=== PATIENT | male | born 1955 | race Caucasian/White ===

== ENCOUNTER → 2024-08-30 08:02 | Outpatient (BNVA) | payer OTHER, SELFPAY | PROVIDERS: Visit Provider Nurse Practitioner Family | DX: Z01.818 Encounter for other preprocedural examination (principal); K21.9 Gastro-esophageal reflux disease without esophagitis; G47.30 Sleep apnea, unspecified | CPT/HCPCS: 99212 ==

== ENCOUNTER → 2024-08-30 08:02 | Outpatient (AMB) | payer OTHER, SELFPAY ==
--- OUTSIDE RECORDS SUMMARY | 2024-08-30 08:06 | XMS_ITS ---
Author Name [facility] [place] [facility] [place] Address [address] [place] [address] Care Team Providers Care Tip Puncher Name Role Phone GUDELIA MERIDA Primary Care Provider Unavailmatthew e Insurance Providers: All historical and current Section Date Range: From patient's date of to the date document was created. This section includes the names of all active insurance providers for the patient. Insurance Provider Type of Coverage Plan Name Start of Policy Coverage End of Policy Coverage Group Number Member ID Insurance Provider's Telephone Number Policy Xie's Name Patient's Relationship to Policy Xie OPTUM RX PRESCRIPT ION RX Apr 13, 2022 THPRX [id number] ROJELIO GOMEZ PATIENT [facility] Apr 13, 2017 [id number] [phone] ROJELIO GOMEZ PATIENT [facility] PLAN [facility] [place] REUBEN CHAN E Apr 13, 2017 [facility] [place] [id number] ROJELIO GOMEZ PATIENT Selected Encounter This section includes the information on record at [place] for the Encounter. Date/Time Encounter Type Encounter Description Reason Provider Source May 10, 2024 10:00 AM TELEHEALTH FACILITY FEE SLEEP MEDICINE ICD-10-CM G47.33 Obstructive sleep apnea (adult) (pediatric) CHALO MALLOY Encounter Template Text not used by [place] Assessments - Encounter Diagnoses This section includes the primary and secondary diagnoses documented for the Encounter. Date/Time Primary/Secondary Diagnosis Diagnosis Name Provider Source May 10, 2024 11:13 AM PRIMARY Obstructive sleep apnea (adult) (pediatric) CHALO MALLOY [place] [facility] [place] [facility] Plan of Treatment: Future Appointments (+ 6 months) and Future Tests (+/- 45 days) The Plan of Treatment section includes future care activities for the patient from all [place] treatmentfacilities. This section includes future appointments and future orders which are active, pending or scheduled. Future Appointments This section includes appointments that were scheduled to occur 6 months from the date of the Encounter, up to a maximum of 20 appointments. The data comes from all [place] treatment facilities. Appointment Date/Time Appointment Type Appointme nt Facility Name May 19, 2024 10:30 AM AMBULATORY - MEDICINE [place] [facility] [place] [facility] Jun 03, 2024 08:30 AM AMBULATORY - MEDICINE [place] [facility] [place] [facility] Jun 24, 2024 08:30 AM AMBULATORY - REHAB MEDICIN [facility] Jun 27, 2024 09:00 AM AMBULATORY - MEDICINE [place] [facility] [place] [facility] Jun 30, 2024 09:00 AM AMBULATORY - NONE [facility] Jun 30, 2024 11:00 AM AMBULATORY - MEDICINE [place] [facility] [place] [facility] Jul 04, 2024 09:00 [facility], [facility] 09:00 AM AM[facility]UL[facility] - NONE [facility] Jul 25, 2024 09:00 AM AMBULATORY - MEDICINE [place] [facility] [place] [facility] Jul 25, 2024 10:00 AM AMBULATORY - MEDICINE [place] [facility] [place] [facility] Jul 28, 2024 09:00 AM AMBULATORY - NONE [facility] Jul 29, 2024 08:00 AM AMBULATORY - REHAB MEDICIN [facility] Aug 02, 2024 08:30 AM AMBULATORY - MEDICINE [place] [facility] [place] [facility] Aug 02, 2024 08:31 AM AMBULATORY - MEDICINE [place] [facility] Aug 04, 2024 09:00 AM AMBULATORY - NONE [facility] Aug 04, 2024 02:00 PM AMBULATORY - MEDICINE [place] [facility] [place] [facility] Aug 08, 2024 09:00 AM AMBULATORY - REHAB MEDICIN E [facility] August 11, 2024 09:30 AM AMBULATORY - MEDICINE [facility] August 15, 2024 09:00 AM AMBULATORY - REHAB MEDICIN E [facility] August 18, 2024 09:00 AM AMBULATORY - NONE [facility] Lab Results: +/- 30 days of the encounter This section includes the Chemistry and Hematology Lab Results on record with [place] for the patient. Radiology Reports and Pathology Reports are provided separately, in subsequent sections. Lab Results This section contains the Chemistry/Hematology Results that were resulted 30 days before or 30 daysafter the date of the Encounter. Date/Time Source Result Type Result - Unit Interpretation Reference Range Specimen Type Comment May 10, 2024 11:57 AM [facility] LIVER FUNCTION SERUM Specimen Type: SERUM No comment entered. Ordering Provider: GUDELIA MERIDA Report Released Date/Time: May 10, 2024 11:50 AM Reporting Lab: [address] [address] Performing Lab: [address] [address] PROTEIN,TOTAL 7.7 g/dL 6.0-8.3 ALBUMIN 4.4 g/dL 3.5-5.0 ALKALINE PHOSPHATASE 54 U/L 40-150 AST 23 U/L 5-34 ALT 32 U/L BILIRUBIN, TOTAL 0.9 mg/dL 0.2-1.2 May 10, 2024 11:57 AM [facility] BASIC METABOLIC PANEL (non-fasting) SERUM Spe cimen Type: SERUM No comment entered. Ordering Provider: GUDELIA MERIDA Report Released Date/Time: May 10, 2024 11:50 AM Reporting Lab: [address] [address] Performing Lab: [address] [address] UREA NITROGEN 14 mg/dL 7-25 GLUCOSE 94 mg/dL 65-100 SODIUM 136 mmol/L 135-145 POTASSIUM 4.4 mmol/L 3.5-5.0 CHLORIDE 103 mmol/L 100-110 CO2 25 meq/L 20-30 CREATININE, Serum 1.18 mg/dL 0.50-1.40 eGFR(CKD-EPI 2020) 68 mL/min >60 May 10, 2024 11:57 AM [facility] CBC BLOOD Specimen Type: BLOOD No comment entered. Ordering Provider: GUDELIA MERIDA Report Released Date/Time: May 10, 2024 11:50 AM Reporting Lab: [facility] [address] [facility] [address] Performing Lab: [facility] [address] [facility] [address] WBC 6.13 10*3/uL 4.50-11.00 RBC 5.21 10*6/uL 4.23-5.66 HGB 15.7 g/dL 12.8-17 HCT 46.0 39.2-50.4 MCV 88.3 fL 82-99 MCHC 34.1 g/dL 30.8-35.1 PLT 199 10*3/uL 140-360 RDW-CV 12.7 12.0-16.0 MCH 30.1 pg 26.2-32.6 Vital Signs: All taken on the encounter date This section contains inpatient and outpatient Vital Signs collected on the date of the Encounter. Date/Time Temperature Pulse Blood Pressure Respiratory Rate SP02 Pain Height Weight Body Mass Index Source May 10, 2024 11:44 AM 55 152/86 [place] [facility] [place] [facility] May 10, 2024 11:41 AM 55 150/90 16 96 [place] [facility] [place] [facility] May 10, 2024 11:09 AM 191/72 [place] [facility] [facility] May 10, 2024 11:08 AM 60 189/95 17 94 200 30 [facility] [place] [facility] Social History: Smoking Status (Most current) and Tobacco Use (All prior to encounter date) This section includes the most current, and the historical, smoking and tobacco- related health factors from the [place] facility where the Encounter took place. Current Smoking Status This section includes the most current smoking, or tobacco-related health factor, from the [place] facility where the Encounter took place. Date/Time Current Smoking Status Comment Facil ity May 10, 2024 11:00 AM VA-TOBACCO NEVER U SED CIGARETTES [facility] Tobacco Use History This section includes a history of the smoking, or tobacco-related health factors, that were collected on or before the date of the Encounter. The data comes from the [place] facility where the Encounter took place. Date/Time Smoking Status/Tobacco Use Comment [place] May 10, 2024 11:00 AM VA-TOBACCO NEVER U SED OTHER TYPE [facility] Jun 06, 2023 12:22 PM VA-TOBACCO NEVER USED [facility] Radiology Reports: +/- 30 days of the encounter Radiology Reports For cases when an order for radiology services may have been completed prior to the date of the Encounter, the report list includes the Radiology Reports that were completed up to 30 days before dateof the Encounter. For cases when an order for radiology services may have been completed after the date of the Encounter, the report list also includes the Radiology Reports that were completed up to30 days after date of the Encounter. The data comes from all [place] treatment facilities. Date/Time Radiology Report Provider Source May 19, 2024 11:19 AM SPINE LUMBOSACRAL MIN 2 VIEWS: BLAYNE GOMEZ [id number] -[phone] M Exm Date: MAY 19, 2024@11:19 Req Phys: GUDELIA MERIDA Pat Loc: CWM/NO/PACT EIGHT (Req'g Loc) Im Loc: [facility] 1 Service: [place] [address] (Case 315 COMPLETE) SPINE LUMBOSACRAL MIN 2 VIEWS (RAD Detailed) CPT:98875 Reason for Study: low back pain Clinical History: prev saw physiatry- chronic back pain Report Status: Verified Date Reported: MAY 19, 2024 Date Verified: MAY 19, 2024 Pump Operator E-Sig:/ES/TRACIE HARVEY JR Report: Study: AP, lateral and magnified lateral views of the lumbar spine. Comparison: Lumbar spine radiographs from December 21, 2018. Findings: There are 5 lumbar vertebral bodies. There is interval worsening of intervertebral disc space narrowing, vertebral endplate sclerosis and anterior osteophytosis throughout the visualized thoracic and the entire lumbar spine consistent with degenerative disc disease. This is mild to moderate in degree and is most prominent at the L5-S1 level where there is grade 1 anterolisthesis of L5 on S1 again identified without clear pars interarticularis defect at this level. There is straightening of the normal lumbar spine lordosis, likely secondary to degenerative disc disease changes. The vertebral heights are normal. There is moderate lower lumbar spine facet joint hypertrophic change. The bony mineralization is normal. No acute bony fracture, dislocation or subluxation is identified. The visualized sacrum is normal and the visualized sacroiliac joints are normal for age. Impression: Multilevel degenerative changes to the lumbar spine, as described above. Primary Diagnostic Code: No immediate attention required Primary Interpreting Staff: TRACIE HARVEY JR, Radiologist (Pump Operator) /EATRACIE ARZOLA JR [facility] Encounter Notes: All associated encounter notes This section contains the clinical notes associated to the Encounter. Date/Time Encounter Note(s) Provider Source May 10, 2024 11:13 AM SLEEP MEDICINE NOT E: LOCAL TITLE: SLEEP DISORDER INITIAL CONSULT NOTE STANDARD TITLE: SLEEP MEDICINE NOTE DATE OF NOTE: MAY 10, 2024@11:13 ENTRY DATE: MAY 10, 2024@11:13:09 AUTHOR: CHALO MALLOY EXP COSIGNER: URGENCY: STATUS: COMPLETED SLEEP MEDICINE TELEMEDICINE CONSULT (CVT) This visit was conducted in CVT clinic. Reason for referral: struggling with compliance, does not feel tired, does not feel benefit and requests to discuss alternatives to CPAP. In interim he is trying F30-i FFM HPI: The patient is a 69 year old with a history of elevated BMI (31), chronic maxillary sinusitis, allergic rhinitis, asthma, GERD, tinnitus, and moderate GORDON on APAP who presents with the main sleep-related concern(s) of CPAP intolerance. He would like to consider alternative treatment options. He was diagnosed with moderate GORDON on PSG 07/17/22 (scanned in [place]) which showed AHI of 26/hr, mean Sp02 94% with jean Sp02 of 80%, Sp02 < 90% 37 minutes TST: 445 minutes, SE: 87%. He was subsequently set up on APAP 5-20 cmH20 10/19/2023. 90-day download shows last usage in Jan 2024. There were 37/90 days of usage, averaging 2.5hr with residual AHI of 3/hr, P95 of 10 cmH20. He was seen in CPAP clinic and recommended switching from the N30i to the F30i FFM. He reports that it feels psychological . He feels that he can not breathe with the mask on. 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 He was unable to tolerate either the nasal or full face interface. He reports symptoms of frequent nocturnal awakenings, nocturia, snoring. My snoring is still pretty bad, and asks him to sleep in a separate room. He denies gasping/choking awakenings and morning headaches. Lately he feels more tired than usual during the day, and may feel drowsy when sedentary during the day. He gets nasally congested and maxillary sinusitis. Uses Afrin spray regularly. Does not do saline rinses. He has exercise induced asthma, treated with inhaler. Other sleep symptoms: Reports previous symptoms of RLS, not currently. Denies sleepwalking, dream enactment Denies nightmares Endorses occasional difficulty falling asleep, wouldn't say it's a big issue. Current sleep-wake cycle: Bedtime: 10-11pm Sleep latency: no more than 30 min # of awakenings/how lon-3x/night to urinate, SL very quick Rise time: 7-7:30am normally without an alarm Upon awakening: refreshed Estimated nocturnal sleep: 7-8hr Bedpartner: Sleep position: side, stomach Napping: no Drowsy driving: no EPWORTH SLEEPINESS SCALE: TOTAL 11/03 Sitting and Reading 1 score Watching Television 1 score Sitting inactive in a public place 0 score Sitting as a passenger in a car 1 hour without a break 1 score Lying down to rest in the afternoon ___2 score Sitting and talking to someone 0 score Sitting quietly after lunch without alcohol 1 score In a car, stopped for a few minutes in traffic 0 score Pertinent Social Hx: Caffeine: 2-3 cups of tea ETOH: on weekends Smoking: no Occupation: retired Marital Status: Pertinent Family Hx: Denies known FH of sleep apnea PMH: Sleep apnea (disorder) Backache (finding) Gastroesophageal reflux disease (disorder) Elevated blood pressure reading without diagnosis of hypertension (situation) Cataract (disorder) Hearing loss (disorder) Chronic maxillary sinusitis (disorder) Mood disorder (disorder) Allergic rhinitis (disorder) Tinnitus (finding) MEDS: FLUTICASONE/SALMETEROL (WIXELA) INHL,ORAL, NON-VA (Patient/Family Reported) ALBUTEROL INHALER INHL,ORAL, NON-VA (Patient/Family Reported) OMEPRAZOLE CAP,EC, NON-VA (Patient/Family Reported) ALLERGIES: No Allergy Assessment PE: 08/10/23 Body Mass Index: 31* BP 190/77 (repeated), GEN: well appearing, in NAD HEENT: NC/AT, neck supple, sclera anicteric, teeth intact but enamel worn down, tongue with central fissuring, Mallampati 2 NEURO: awake, alert, no focal deficits PSYCH: normal mood and affect PRIOR SLEEP STUDIES: PSG of 07/17/22 reviewed (scanned in [employer]), study done in [facility] Impression: Moderate GORDON AHI: 25.6/hr, mean Sp02 94% with jean Sp02 of 80%,Sp02 < 90% 37.2 minutes TST: 444.5 minutes, SE: 86.56% PLMI: 12/hr BLAYNE GOMEZ 11/17/2023 - 02/14/2024 : 1955 Age: 69 years [employer] Compliance Report Compliance Payor [facility] Usage 11/17/2023 - 02/14/2024 Usage days 37/90 days (41%) >= 4 hours 7 days (8%) < 4 hours 30 days (33%) Usage hours 97 hours 50 minutes Average usage (total days) 1 hours 5 minutes Average usage (days used) 2 hours 39 minutes Median usage (days used) 2 hours 16 minutes Total used hours (value since last reset - 02/14/2024) 154 hours AirSense 11 AutoSet Serial number [id number] Mode AutoSet Min Pressure 5 cmH2O Max Pressure 20 cmH2O EPR Fulltime EPR level 3 Response Soft Therapy Pressure - cmH2O Median: 8.0 95th percentile: 9.9 Maximum: 10.4 Leaks - L/min Median: 1.7 95th percentile: 18.0 Maximum: 26.1 Events per hour AI: 2.1 HI: 1.0 AHI: 3.1 Apnea Index Central: 0.9 Obstructive: 1.1 Unknown: 0.0 RERA Index 0.4 Randolph-Caldera respiration (average duration per night) 0 minutes (0% * Impression: 69 year old with 1) Moderate GORDON, last confirmed on non-VA PSG 07/17/22 with AHI 26/hr, SpO2 jean 80%, T<90% 37 min. He was initiated on APAP 5-20 cmH20 but having difficulty acclimating due to mask claustrophobia and possibly pressure intolerance in the setting of chronic rhinosinusitis. We discussed better strategies to treat his congestion rather than his current strategy of using Afrin only. We discussed how PAP is the first line and most effective options, alternative options discussed include MAD and pharmacologic weight reduction. He is interested in Zepbound (tirzepatide) which he has researched. He is not interested in surgical option of Inspire. 2) Severe hypertension, with systolic in the 190s today and reportedly a history of hypertension that is diet-managed. Patient is currently asymptomatic. We did discuss the sequelae of assisted untreated HTN and he will seek further treatment guidance from his PCP. Plan: - start nasal saline rinse (e.g., Neilmed) at bedtime; may follow up with Flonase 1 spray in each nostril as needed. - resume CPAP use (vet wants to retry PAP) - will place referral to the move program to review pharmocologic weight loss options - may consider alternative treatments in the future including oral appliance therapy - advised to reach out to his PCP for BP management RTC in 4-5 months. /ronnie/ CHALO MALLOY MD ATTENDING Signed: 05/10/2024 11:13 CHALO MALLOY [facility] [place] [facility] May 10, 2024 10:12 AM TELEHEALTH NOTE: LOCAL TITLE: TELEHEALTH NOTE STANDARD TITLE: TELEHEALTH NOTE DATE OF NOTE: MAY 10, 2024@10:12 ENTRY DATE: MAY 10, 2024@10:12:28 AUTHOR: MASSIEL HAND EXP COSIGNER: URGENCY: STATUS: COMPLETED TELEHEALTH NOTE Has ADDENDA SLEEP MEDICINE TELEMEDICINE AFTER VISIT INSTRUCTIONS Appt date: Apr Provider: Dr. Chalo Malloy Continue CPAP (continuous positive airway pressure) therapy while sleeping and napping. Referral to MOVE clinic. Contact PCP to have B/P Check Appt medication refilled/ordered. Advised use of Saline nasal rinses. Weight reduction. Other: May consider alternative treatments in the future including oral appliance therapy. Discussed with patient the above, patient verbalize understanding. Next Scheduled Appointment date: August Important phone numbers Call Center Assistant(name):Massiel Hand Ex [phone] Malloy via My [employer] Vet secure messaging: [email or web address] (secure messaging) Dental: [phone], ext. [phone] HOMESLEEP DEPT (Home sleep Dept):[phone], ext. [phone] Respiratory Therapist: [phone], ext. [phone] /es/ MASSIEL HAND TELEHEALTH CLINICAL TAKER OFF HEMP FIBER Signed: 05/10/2024 11:03 05/10/2024 ADDENDUM STATUS: COMPLETED correction F/U appt scheduled for 08/02/2024 @ 0830. /ronnie/ MASSIEL HAND TELEHEALTH CLINICAL TAKER OFF HEMP FIBER Signed: 05/10/2024 11:12 MASSIEL HAND [facility]L [facility]
--- OUTSIDE RECORDS SUMMARY | 2024-08-30 08:06 | XMS_ITS | Encounter Summary ---
Author Name [facility] [place] Address [address] [place] [id number] Care Team Providers Care Home Health Caregiver Name Role Phone GUDELIA MERIDA Primary Care [...] PRESCRIPT ION RX Apr 13, 2022 THPRX [id number] [phone] ROJELIO GOMEZ PATIENT [facility] Apr 13, 2017 [id number] ROJELIO GOMEZ PATIENT [facility] REUBEN CHAN E Apr 13, 2017 [facility] [id number] ROJELIO GOMEZ PATIENT Selected Encounter This section includes the information on record at [place] for the Encounter. Date/Time Encounter Type Encounter Description Reason Pro vider Source August 29, 2024 10:45 AM Outpatient Encounter PRIMARY CARE/MEDICINE IHE Encounter Template Text not used by [place] Plan of Treatment: Future Appointments (+ 6 months) and Future Tests (+/- 45 days) The Plan of Treatment section includes future care activities for the [facility] [place] [facility] This section includes future appointments and future orders which are active, pending or scheduled. Future Appointments This section includes appointments that were scheduled to occur 6 months from the date of the Encounter, up to a maximum of 20 appointments. The data comes from all [place] treatment facilities. Appointment Date/Time Appointment Type Appointme nt Facility Name August 30, 2024 08:15 AM AMBULATORY - NONE [facility] September 06, 2024 02:00 PM AMBUL[facility]ORY - [facility]IC[facility] Jan 31, 2025 11:00 AM [facility] Jan 31, 2025 11:00 AM AMBULATORY - MEDICINE [facility] Feb 01, 2025 09:00 AM AMBULATORY - REHAB MEDICIN E [facility] Active, Pending, and Scheduled Orders This section includes a listing of several types of active, pending, and scheduled orders, including clinic medications orders, diagnostic test orders, procedure orders and consult orders; where the start date of the order is 45 days before the date of the Encounter or 45 days after the date of theEncounter. The data comes from all [place] treatment facilities. Test Date/Time Test Type Test Details Facility Name Jul 29, 2024 01:24 PM Consult Order COMMUNITY CARE-COLONOSCOPY DIAGNOSTIC Cons Industrial Controller's Choice [facility] Vital Signs: All taken on the encounter date This section contains inpatient and outpatient Vital Signs collected on the date of the Encounter. Date/Time Temperature Pulse Blood Pressure Respiratory Rate SP02 Pain Height Weight Body Mass Index Source August 29, 2024 10:43 AM 98.1 56 153/74 18 95 [employer] [facility] Social History: Smoking Status (Most current) and Tobacco Use (All prior to encounter date) This section includes the most current, and the historical, smoking and tobacco- related health factors from the [place] facility where the Encounter took place. Current Smoking Status This section includes the most current smoking, or tobacco-related health factor, from the [place] facility where the Encounter took place. Date/Time Current Smoking Status Radha benton May 10, 2024 11:00 AM NE-TOBACCO NEVER U SED CIGARETTES [facility] Tobacco Use History This section includes a history of the smoking, or tobacco-related health factors, that were collected on or before the date of the Encounter. The data comes from the [place] facility where the Encounter took place. Date/Time Smoking Status/Tobacco Use Comment F acility May 10, 2024 11:00 AM VA-TOBACCO NEVER U SED OTHER TYPE [facility] Jun 06, 2023 12:22 PM VA-TOBACCO NEVER USED [facility] Encounter Notes: All associated encounter notes This section contains the clinical notes associated to the Encounter. Date/Time Encounter Note(s) Provider Source August 29, 2024 11:05 AM PRIMARY CARE NURSI NG OUTPATIENT NOTE: LOCAL TITLE: NURSING/PRIMARY CARE/AMB-OPT.CARE NOTE STANDARD TITLE: PRIMARY CARE NURSING OUTPATIENT NOTE DATE OF NOTE: AUGUST 29, 2024@11:05 ENTRY DATE: AUGUST 29, 2024@11:05:24 AUTHOR: GAGANDEEP MONTALVO EXP COSIGNER: URGENCY: STATUS: COMPLETED Temperature: 98.1 F [36.7 C] (08/29/2024 10:43) Pulse: 56 (08/29/2024 10:43) Respiration: 18 (08/29/2024 10:43) Blood Pressure: 153/74 (08/29/2024 10:43) Height: 68 in [172.7 cm] (08/02/2024 08:37) Weight: 206 lb [93.44 kg] (08/18/2024 09:00) Pain: 0 (08/02/2024 09:21) Allergies: Patient has answered NKA F: Cough and night sweats. Vet concerned about Pneumonia. D: Vet endorses 5-7 day history of cough and night sweats. He denies any other symptoms. [place] has a hx of asthma and states he has been using his rescue inhaler 4x/day when normally he doesn't need to use it at all. reports he has been having night sweats, states the cough and breathing is more difficult at night. Has been using nyquil and dayquil for relief. A: VS as above, vet speaking in clear sentences in no distress, no use of accessory muscles. Vet's color is normal for ethnicity, lung sounds are bibasilar crackles which clear with coughing. Some expiratory wheezing noted. R: [place] signed off to sick call provider. /ronnie/ GAGANDEEP MONTALVO Registered Nurse Signed: 08/29/2024 11:10 GAGANDEEP MONTALVO [place] [facility]
--- OUTSIDE RECORDS SUMMARY | 2024-08-30 08:06 | XMS_ITS ---
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 Name Role Phone YinkaAba Primary Care Provider DIVYA Barnard [phone] Allergies No Known Allergies REASON FOR VISIT b/l foot pain Medications Medication SIG (Take, Route, Frequency, Duration) Notes Start Date End Date Status Advair Diskus 250-50 MCG/ACT 1 puff Inhalation Twice a day Active Omeprazole 20 MG 1 capsule 30 minutes before morning meal Orally Once a day Active Sildenafil Citrate 100 MG 1 tablet as needed Orally Once a day Not-Taking Clotrimazole-Betamethaso ne 1-0.05 % 1 application Externally Twice a day for 28 days 10/30/2022 Not-Taki ng Clotrimazole-Betamethaso ne 1-0.05 % 1 application Externally Twice a day for 90 days 01/29/2024 Active ProAir HFA Not-Takin g Vital Signs Height 5ft 8in in 01/28/2024 Weight 198 lbs 01/28/2024 BMI 30.1 kg/m2 01/28/2024 Procedures Procedure Date Ordered Date Performed Result Body Sit e DRAIN/INJECT, SMALL JOINT/BURSA 01/28/2024 N/A Encounters Encounter Location Date Provider Diagnosis [facility] [address] [address] 01/28/2024 DIVYA WALSH Arthritis of right midfoot M19.071 ; Arthritis of left midfoot M19.072 ; Pain in right foot M79.671 ; Pain in left foot M79.672 and Pruritic dermatitis L30.8 Assessments Encounter Date Diagnosis (ICD Code) Assessment Notes Treatment Notes Treatment Clinical Notes Section Notes 01/28/2024 Arthritis of right midfoot (ICD-10 - M19.071) Patient examined and evaluated. He has recurrence of pain to the midfoot bilaterally from his underlying degenerative arthritic changes at the 2nd TMTJ and also at the naviculocuneiform joints. The right is worse than the left. I again discussed options of treatment of fluoro guided injections, immobilization, oral NSAIDs, oral steroids, and surgery. He wished to proceed with repeat fluoro guided injections. This was performed in the procedure room today using aseptic technique. He tolerated this well. He was given written after care instructions. He is to increase icing over the next few days and avoid jumping and running activity for the next 2 days. I also refilled the lotrisone cream for him to continue to use as needed for the pruritic rash on the right foot. He will follow back with me as needed. I encouraged him to call with any questions or concerns. 01/28/2024 Arthritis of left midfoot (ICD-10 - M19.072) 01/28/2024 Pain in right foot (ICD-10 - M79.671) 01/28/2024 Pain in left foot (ICD-10 - M79.672) 01/28/2024 Pruritic dermatitis (ICD-10 - L30.8) Plan Of Treatment Medication Medication Name Sig Start Date Stop Date Notes Clotrimazole-Betamethasone 1-0.05 % 1 application Externally Twice a day for 90 days 01/29/2024 Pending Test Test Name Order Date DRAIN/INJECT, SMALL JOINT/BURSA 01/28/20 24 Medications Administered Medication Instructions Date of Administration Dosage Notes dexAMETHasone Sod Phosphate PF 01/28/2024 4 mg Kenalog 01/28/2024 10 mg Progress Notes * Clinton GOMEZ DDOB:1955 (68 yo M)Acc No.[id number]:01/28/2024 Patient:?Clinton GOMEZ Provider:Yogesh Oconnell DPM :1955???Age:68 Y???Sex:Male Landon e:01/28/2024 Address:[address] [place] [address] JABIER [id number] Pcp:Aba Honeycutt Subjective: * Chief Complaints: * ???B/l foot pain * HPI: ???Foot & Ankle:? Mr. Gomez is a pleasant 68 year old male who presents for follow up of his bilateral midfoot arthrosis. It continues to be bothersome. He states some days are better than others. It feels like a deep ache in the middle of the foot. He has no swelling assocaited with it. He states the injections give him temporary relief. He has been using the Lotrisone cream intermittently for the itchy rash he gets to the top of the right foot. He states it works great. No new rashes. He denies any changes in his medications and/or medical history. * ROS:?General/Constitutional:?Denies?Chills.?Denies?Fatigue.?Denies?Fever.?Denies?Headache.?Respiratory:?Denies?Cough.?Denies?Shortness of breath,?denies.?Denies?Wheezing.?Cardiovascular:?Denies?Chest pain.?Denies?Claudication.?Denies?Cyanosis.?Gastrointestinal:?Denies?Abdominal pain.?Denies?Constipation.?Denies?Diarrhea.?Hematology:?Denies?Bleeding problems,?denies.?Denies?Easy bruising,?denies.?Denies?Swollen glands.?Musculoskeletal:?Patient complaining of?right and left foot pain at the midfoot.?.?Admits?Arthritis/Arthralgia.?Denies?Leg cramps.?Denies?Limping gait.?Skin:?Denies?Masses.?Denies?Nail changes.?Admits?Rash,?top of right foot.?Denies?Skin lesion(s).?Neurologic:?Denies?Paralysis.?Denies?Tingling/Numbness.?Denies?Tremor.? * Medical History:? * Surgical History:?right ingu inal hernia repair left inguinal hernia repair wisdom teeth extraction (4) * Hospitalization/Major Diagno stic Procedure:?right inguinal hernia repair left inguinal hernia repair * Family History:?Father: dece ased, heart attack.?Mother: arthritis.?Siblings: brother- alcohol abuse.? 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 * Medications:?TakingOmeprazol e 20 MG Capsule Delayed Release 1 capsule 30 minutes before morning meal Orally Once a day Advair Diskus 250-50 MCG/ACT Aerosol Powder Breath Activated 1 puff Inhalation Twice a day Taking Omeprazole 20 MG Capsule Delayed Release 1 capsule 30 minutes before morning meal Orally Once a day Taking Advair Diskus 250-50 MCG/ACT Aerosol Powder Breath Activated 1 puff Inhalation Twice a day Afg-JyrtygHefmgfdcyfcb-Xatlfomnsbkmg 1-0.05 % Cream 1 application Externally Twice a day Sildenafil Citrate 100 MG Tablet 1 tablet as needed Orally Once a day ProAir HFA Medication List reviewed and reconciled with the patientNot-Taking Clotrimazole-Betamethasone 1-0.05 % Cream 1 application Externally Twice a day Not-Taking Sildenafil Citrate 100 MG Tablet 1 tablet as needed Orally Once a day Not-Taking ProAir HFA Medication List reviewed and reconciled with the patient * Allergies:?N.K.D.A.no[Allerg ies Verified] Objective: * Vitals:?Wt:198lbs, Ht: 5ft 8 in, BMI:30.1Index, Ht-cm: 172.72, Wt-k.81 kg. * Examination: ???General Examination: ???This is a middle aged male. Alert and oriented today and in no acute distress. Patient comes in ambulating in sneakers without using any assistive devices. Breathing is regular and unlabored while sitting. Affect is pleasant and cooperative. No unusual anxiety or depression noted. Hearing intact to spoken word. No evidence of visual impairment that would impact self care or ambulation. Patient has palpable dorsalis pedis and posterior tibial pulse bilaterally. No varicosities visualized. Capillary refill is less than 3 seconds to all digits bilaterally. Light touch sensation is symmetrical to all lower extremity dermatomes. Babinski is downgoing. Skin is xerotic plantarly. There is yellow discoloration to all toenails with mild increase in thickness to the nail plates. No rashes present today. N All interdigital spaces are clean, dry, and intact. There is a moderate hallux valgus deformity present bilatearlly. The right foot has hypertrophy at the dorsum of the 2nd/3rd TMTJ area. There is tenderness with pressure. The left foot has mild tenderness over the 2nd TMTJ area without any hypertrophy. Tenderness over the naviculocuneiform joints bilaterally. Subtalar and ankle joint range of motion are unrestricted. 5/5 strength for anterior, posterior, and lateral lower extremity muscle groups on the left and right. Assessment: * Assessment: 1.?Arthritis of right midfoo t - M19.071?2.?Arthritis of left midfoot - M19.072?3.?Pain in right foot - M79.671?4.?Pain in left foot - M79.672?5.?Pruritic dermatitis - L30.8? Plan: * Treatment: 2.?Pruritic dermatitis? Start Clotrimazole-Betamethasone Cream, 1-0.05 %, 1 application, Externally, Twice a day, 90 days, 15 Gram, Refills 3.?? * Procedures:?FLUOROSCOPY GUIDED INJECTION RIGHT AND LEFT 2ND TARSOMETATARSAL JOINTS and NAVICULOCUNEIFORM JOINTS: A consent form was signed by the patient today. This consent reviewed all risks and benefits of steroid injections. Risks included infection, increased pain, steroid flare, discoloration of the skin, swelling, and thinning of soft tissue, ligaments, tendons. Patient advised to rest today after the injection. The patient should ice the area daily 20 minutes on and 20 minutes off twice daily for the next week. Patient was educated that it may take up to 10 days for the steroid to take full effect. The left and right foot were prepped and draped appropriately. Patient was position supine on the exam table in the procedure room. Protective lead was applied to the patient. Knee was flexed to allow the foot to simulate weight bearing. Triangulation of the Mini C-arm was then utilized to visualize the right and left 2nd TMT joint and left and right NC joints. This was marked using a pen. The area was cleansed with iodine solution. Ethyl chloride spray was then utilized to topically anesthetize the skin. 2cc steroid injection consisting of 1cc of 0.5% marcaine plain and 0.5cc of Dexamethasone 4mg/ml and 0.5cc of kenalog 10 under live fluoroscopy to access the joint on each foot. Patient tolerated the procedure well. Patient had good relief immediately after. Hemostasis was maintained with direct pressure and a band-aid was applied to each foot. Total time of the procedure was less than 5 minutes. ? * Therapeutic Injections:? Dexamethasone : 4 mg given by DIVYA WALSH D.P.M. (Arthritis of right midfoot, Arthritis of left midfoot)??? Kenalog : 10 mg given by DIVYA WALSH D.P.M. (Arthritis of right midfoot, Arthritis of left midfoot) * Procedure Codes:? DRAIN /INJECT, SMALL JOINT/BURSA, Modifiers: 50 J1100 INJ DEXAMETHASONE SODIM PHOSHATE 1 MG, Units: 4.00 J3301 INJ TRIAMCINOLONE ACETONIDE 10 MG * Billing Information: * Visit Code:? 57545 Office Visit, Est Pt., Level 3. Modifiers: 25 * Procedure Codes:? DRAIN/INJECT, SMALL JOINT/BURSA. Modifiers: 50 J1100 INJ DEXAMETHASONE SODIM PHOSHATE 1 MG. Units: 4.00. J3301 INJ TRIAMCINOLONE ACETONIDE 10 MG. * Sign off status: Completed true * Provider:?Divya Oconnell DPM Date:?01/27 Generated for Sydney mccabe/Abelardo/Meeitting on:?08/30/2024 08:06 AM EDT History and Physical Notes * Examination Category Sub-Category Detail Notes Category Not es General Examination This is a middle aged male. Alert and oriented today and in no acute distress. Patient comes in ambulating in sneakers without using any assistive devices. Breathing is regular and unlabored while sitting. Affect is pleasant and cooperative. No unusual anxiety or depression noted. Hearing intact to spoken word. No evidence of visual impairment that would impact self care or ambulation. Patient has palpable dorsalis pedis and posterior tibial pulse bilaterally. No varicosities visualized. Capillary refill is less than 3 seconds to all digits bilaterally. Light touch sensation is symmetrical to all lower extremity dermatomes. Babinski is downgoing. Skin is xerotic plantarly. There is yellow discoloration to all toenails with mild increase in thickness to the nail plates. No rashes present today. N All interdigital spaces are clean, dry, and intact. There is a moderate hallux valgus deformity present bilatearlly. The right foot has hypertrophy at the dorsum of the 2nd/3rd TMTJ area. There is tenderness with pressure. The left foot has mild tenderness over the 2nd TMTJ area without any hypertrophy. Tenderness over the naviculocuneiform joints bilaterally. Subtalar and ankle joint range of motion are unrestricted. 5/5 strength for anterior, posterior, and lateral lower extremity muscle groups on the left and right.
--- OUTSIDE RECORDS SUMMARY | 2024-08-30 08:06 | XMS_ITS | Encounter Summary ---
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 SEVERIANOON CHAN Apr 13, 2017 [id number] [phone] ROJELIO GOMEZ PATIENT [facility] PL[facility] ARSENIGH DILIA CHAN E Apr 13, 2017 [facility] [phone] ROJELIO GOMEZ PATIENT Selected Encounter This section includes the information on record at [facility] for the Encounter. 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 Date/Time Primary/Secondary Diagnosis Diagnosis Name Provider Source Aug 04, 2024 03:43 PM PRIMARY Pain in thoracic spine IGNACIO HERZOG [facility] [place] [facility] Aug 04, 2024 03:43 PM SECONDARY Other low back pain IGNACIO HERZOG [facility] [place] [facility] Plan of Treatment: Future Appointments (+ 6 months) and Future Tests (+/- 45 days) The Plan of Treatment section includes future care activities for the patient [facility] This section includes future appointments and future orders which are active, pending or scheduled. Future Appointments This section includes appointments that were scheduled to occur 6 months from the date of the Encounter, up to a maximum of 20 appointments. The data comes from all [place] treatment facilities. Appointment Date/Time Appointment Type Appointme nt Facility Name Aug 08, 2024 09:00 AM AMBULATORY - REHAB [facility] August 11, 2024 09:30 AM AMBULATORY - MEDICINE [facility] [place] [facility] August 15, 2024 09:00 AM AMBULATORY - REHAB [facility] August 18, 2024 09:00 AM AMBULATORY - NONE [facility] August 18, 2024 02:00 PM AMBULATORY - MEDICINE [facility] [place] [facility] August 29, 2024 09:00 AM AMBULATORY - MEDICINE [facility] [place] [facility] August 29, 2024 11:30 AM AMBULATORY - MEDICINE [facility] [place] [facility] August 30, 2024 08:15 AM AMBULATORY - NONE [facility] [place] [facility] September 06, 2024 02:00 PM AMBULATORY - MEDICINE [facility] [place] [facility] Jan 31, 2025 11:00 AM AMBULATORY - MEDICINE [facility] [place] [facility] Jan 31, 2025 11:00 AM [facility]ORY - [place] [facility] Feb 01, 2025 09[facility]00 AM [facility] [place] [facility] Active, Pending, and Scheduled Orders This section includes a listing of several types of active, pending, and scheduled orders, including clinic medications orders, diagnostic test orders, procedure orders and consult orders; where the start date of the order is 45 days before the date of the Encounter or 45 days after the date of theEncounter. The data comes from all [place] treatment facilities. Test Date/Time Test Type Test Details Facility Name Jun 30, 2024 11:41 AM Consult Order OTOLARYNGO LOGY/ENT ONE Cons Senior Nurse Manager's Choice [facility] Jul 29, 2024 01:24 PM Consult Order COMMUNITY CARE-COLONOSCOPY DIAGNOSTIC Cons Senior Nurse Manager's Choice [facility] Lab Results: +/- 30 days of the encounter This section includes the Chemistry and Hematology Lab Results on record with [facility] for the patient. Radiology Reports and Pathology Reports are provided separately, in subsequent sections. Lab Results This section contains the Chemistry/Hematology Results that were resulted 30 days before or 30 daysafter the date of the Encounter. Date/Time Source Result Type Result - Unit Interpretation Reference Range Specimen Type Comment Jul 24, 2024 12:00 AM [facility] OCCULT BLOOD FIT X1 SCREEN (MFP ONLY) FECES S pecimen Type: FECES No comment entered. Ordering Provider: GUDELIA MERIDA Report Released Date/Time: Jun 20, 2024 12:27 PM Reporting Lab: [address] [id number] Performing Lab: [address] [address] OCCULT BLOOD (FIT)#1 OF 1 POSITIVE HH NEG Social History: Smoking Status (Most current) and Tobacco Use (All prior to encounter date) This section includes the most current, and the historical, smoking and tobacco- related health factors from the [facility] facility where the Encounter took place. Current Smoking Status This section includes the most current smoking, or tobacco-related health factor, from the [facility] facility where the Encounter took place. Date/Time Current Smoking Status Comment Facil ity May 10, 2024 11:00 AM [facility]-TOBACCO NEVER U SED CIGARETTES [facility] Tobacco Use History This section includes a history of the smoking, or tobacco-related health factors, that were collected on or before the date of the Encounter. The data comes from the [place] facility where the Encounter took place. Date/Time Smoking Status/Tobacco Use Comment F acility May 10, 2024 11:00 AM [facility]-TOBACCO NEVER U SED OTHER TYPE [facility] [place] [facility] Jun 06, 2023 12:22 PM VA-TOBACCO NEVER USED [facility] [place] [facility] Encounter Notes: All associated encounter notes This section contains the clinical notes associated to the Encounter. 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 06/23/2023 MISTY BURDICK Past Surgeries: Rebecca teeth remonved hernia repairs in childhood Patient felt some relief after the last visit. He did yard work - raking, burning, bending, cut a small tree. [facility] with C/C of pain in lower back, bilat He denies radiation He describes the pain as constant sharp and dull, deep ache Vet rates the pain on the NPRS 4/10 average Temporal: NA Patient sleeps on his stomach or side. 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 He gradually felt better until it didn't. He noticed pain during ADLs about 10 years ago when he could no longer perform regular tasks. Prior treatment: About 10 years ago patient saw a DO who ordered an MRI; Injections of a steroid which helped temporarily. Approximately 4 injections at every visit for 4-5 months over 2 years. [facility]up[facility] recent at this [facility] did not change sx. Started Physical Therapy at [facility] and the therapist is good. Patient received a TENS unit which provides temporary relief Vet called his former PCP, the DO, who moved out of state. Prior daytime caregiver: None Exercise/Activities: at gym [employer]ipt[employer] 30 minutes; free weights and machines. Bending to move a weight can exacerbate the sx GOALS: go into the [place] and clear a field of trees. Currently it would cause low back pain; bend to put socks on. Pertinent imaging: search for x-rays Patient denies recent fever, infections, night sweats, unexplained weight loss, bowl/bladder problems, saddle anesthesia Initial EXAM NPRS Patient enters clinic FWB without need of assistive device without signs of acute distress, antalgia, or gait alteration Patient appears to be well nourished, is well groomed, pleasant, cooperative in NAD, gait and station unremarkable. AAOx3, speech is fluent. Rhomberg's: No sway noted Tobin's: Neg bilat General exam findings Cursory PE demonstrates no acute or emergent health conditions. No signs of acute pulmonary distress, breathing is steady and non-labored. No distal edema or signs of peripheral circulatory distress. No saddle paresthesia and no acute bowel or bladder dysfunction. Active LUMBAR ROM limited and provocative into: flexion, extensio, bilat Rotation. Peripheral Neuro-Muscular Exam Lower Extremity Gross motor 5/5 and sensory exam is intact without abnormality Patellar and Achilles Reflex 2+ Bilat No ankle clonus Lumbar Orthopedic testing: Valsalva Maneuver: Neg SLR/seated slump POS Kemps neg Sacral base push neg SI provocation testing POS Fabere's neg Direct S-I palpation POS Soft tissue palpation reveals hypertonicity and tendernessLeft iliopsoas, left SI jt, PSIS, and Thoracolumbar junction Observed mild left rotation of lumbar spine when prone Motion palpation reveals intersegmental lumbar, L/S, SI jt somatic dysfunction with relative joint hypomobility. IMPRESSION: Back pain associated with, segmental jt dysfunction and hypertonicity. It is reasonable in this case to apply a conservative course of manual therapy to address myofascial and joint findings while encouraging activity and stretching specific to the patient's presentation. PLAN: Treatment #1. I explained all of this to the patient and the patient seemed to understand. Treatment options from least invasive to most with the associated risks, benefits, alternatives, and potential outcomes were discussed in detail. Potential risks associated with spinal manipulative therapy, the following were shared with the patient: Likely (transient mild post-treatment soreness); Less Likely (Bruising, sprain/strain); Rare but potentially serious (disc herniation, fracture); Extremely Rare but serious (epidural spinal hematoma, cauda equina syndrome). Informed consent obtained to provide management consisting of: ~ Lumbar F/D decompression manipulation with the intended goal of the reduction of LBP and limitations related to LBP through the mechanical action of lumbar flexion with a gentle distractive force. ~ MFR as per palpation (10 minutes) ~ Mobilization/SMT to Cervical, Thoracic, and/or Lumbar and S-I regions in lateral decubitus posture ~ Prone or supine thoracic mobilization/SMT ~ Prone hip flexor/quadriceps stretching as per palpation ~ Supine gluteal stretching as per palpation objectives 08/04/24: Tender hypertonic L/S mm R>L Restrictions lumbar, thoracic Treatment: Corrective/Active F/D lumbar mechanical traction with flexion,lat bending,axial traction. 8 min CMT lumbar side posture CMT lower thoracic, seated Treatment carried out today and well tolerated with relief expressed. The prognosis, at this time, is fair to good. Plan: perform Arpit; Add hip flexor stretch Short term goals include improvement in excess 25% on regional disability questionnaire and/or NRS over the first 3-4 treatment visits. It was explained to the patient that resolution of soft tissue complaintsthrough conservative management requires compliance with at home recommendations and avoidance of aggravating factors. Self-Care Recommendations: ~Patient encouraged to engage in activities such as a walking program with established goals to reduce fear-avoidance behaviors with regard to movement,and improve overall health and fitness. emphasis placed upon function over pain with effort made each day to remain active understanding that normal daily activities may temporarily increase pain experience but are not inherently injurious and should be explored to the extent possible. ~ Activity such as Yoga encouraged to enhance relaxation, flexibility, posture, core stability, balance, and pain modulation. Visit 2 F/U 4 weekly Seek urgent care as needed. CMT: chiropractic manipulative therapy F/D: Flexion Distraction MFR: Myofascial Release S-I: Sacroiliac MFTP: Myofascial Trigger Point NRS: Numeric Rating Scale /ronnie/ IGNACIO HERZOG D.C. CHIROPRACTOR Signed: 08/04/2024 15:43 IGNACIO HERZOG [facility]
--- OUTSIDE RECORDS SUMMARY | 2024-08-30 08:06 | XMS_ITS ---
Author Name [facility] [place] [place] Organization [facility] [place] Address [address] [place] [address] Care Team Providers Care Optomechanical Engineer Name Role Phone GUDELIA MERIDA Primary Care Provider Unavailabl e Insurance Providers: All historical and current [...] PRESCRIPT ION RX Apr 13, 2022 THPRX [id number] ROJELIO GOMEZ PATIENT [facility] Apr 13, 2017 [id number] [phone] ROJELIO GOMEZ PATIENT [facility] HE[facility] BRIGH TON CHAN E Apr 13, 2017 [facility] [id number] [phone] ROJELIO GOMEZ PATIENT Selected Encounter This section includes the information on record at [place] for the Encounter. Date/Time Encounter Type Encounter Description Reason Provider Source May 19, 2024 10:30 AM OFFICE O/P EST HI 40 MIN PRIMARY CARE/MEDICINE ICD-10-CM I10 Essential (primary) hypertension GUDELIA MERIDA IHShelly Encounter Template Text not used by [place] Assessments - Encounter Diagnoses This section includes the primary and secondary diagnoses documented for the Encounter. Date/Time Primary/Secondary Diagnosis Diagnosis Name Provider Source May 19, 2024 11:18 AM PRIMARY Essential (primary) hypertension FURCOLO,GUDELIA [facility] [place] [facility] May 19, 2024 11:18 AM SECONDARY Gastro-esophageal reflux disease without esophagitis FURCOLO,GUDELIA [facility] [place] [facility] May 19, 2024 11:18 AM SECONDARY Other low back pain FURCOLO,GUDELIA [facility] [place] [facility] May 19, 2024 11:18 AM SECONDARY Sleep apnea, unspecified FURCOLO,GUDELIA [facility] [place] [facility] May 19, 2024 11:18 AM SECONDARY Tinnitus, unspecified ear FURCOLO,GUDELIA [facility] [place] [facility] Plan of Treatment: Future Appointments (+ 6 months) and Future Tests (+/- 45 days) The Plan of Treatment section includes future care activities for the patient from all [place] [facility] This section includes future appointments and future orders which are active, pending or scheduled. Future Appointments This section includes appointments that were scheduled to occur 6 months from the date of the Encounter, up to a maximum of 20 appointments. The data comes from all [place] treatment facilities. Appointment Date/Time Appointment Type Appointme nt Facility Name Jun 03, 2024 08:30 AM AMBULATORY [place]ICINE [place] [facility] [place] [facility] Jun 24, 2024 08:30 [facility] Jun 27, 2024 09:00 AM AM[facility]UL[place]ORY [place] [facility] [place] [facility] Jun 30, 2024 09:00 AM AMBULATORY - NONE [facility] Jun 30, 2024 11:00 AM AMBULATORY - [place]ICINE [place] [facility] [place] [facility] Jul 04, 2024 09:00 AM AMBULATORY - REHAB [facility] Jul 07, 2024 09:00 AM AMBULATORY - NONE [facility] Jul 25, 2024 09:00 AM AMBULATORY - MEDICINE [place] [facility] [place] [facility] Jul 25, 2024 10:00 AM AMBULATORY - MEDICINE [place] [facility] [place] [facility] Jul 28, 2024 09:00 AM AMBULATORY - NONE [facility] Jul 29, 2024 08:00 AM AMBULATORY - [facility] [place] Aug 02, 2024 08:30 AM AMBULATORY - [place]ICINE [place] [facility] [place] [facility] Aug 02, 2024 08:31 AM [facility] Aug 04, 2024 09:00 AM AMBULATORY - NONE [facility] Aug 04, 2024 02:00 PM AMBULATORY - MEDICINE [place] [facility] [place] [facility] Aug 08, 2024 09:00 AM AMBULATORY - REHAB MED[facility]IN [facility] [place] August 11, 2024 09:30 AM AMBULATORY - MEDICINE [place] [facility] [place] [facility] August 15, 2024 09:00 AM AMBULATORY - REHAB MEDICIN [facility] [place] August 18, 2024 09:00 AM AMBULATORY - NONE [facility] August 18, 2024 02:00 PM AMBULATORY - MEDICINE [facility] Active, Pending, and Scheduled Orders This section includes a listing of several types of active, pending, and scheduled orders, including clinic medications orders, diagnostic test orders, procedure orders and consult orders; where the start date of the order is 45 days before the date of the Encounter or 45 days after the date of theEncounter. The data comes from all [place] treatment facilities. Test Date/Time Test Type Test Details Facility Name Jun 30, 2024 11:41 AM Consult Order OTOLARYNGO LOGY/ENT ONE Cons Medical Records Tech's Choice [facility] Lab Results: +/- 30 days of the encounter This section includes the Chemistry and Hematology Lab Results on record with [place] for the patient. Radiology Reports and Pathology Reports are provided separately, in subsequent sections. Lab Results This section contains the Chemistry/Hematology Results that were resulted 30 days before or 30 daysafter the date of the Encounter. Date/Time Source Result Type Result - Unit Interpretation Reference Range Specimen Type Comment May 10, 2024 11:57 AM [facility] LIVER FUNCTION SERUM Specimen Type: SERUM No comment entered. Ordering Provider: GUDELIA MERIDA Report Released Date/Time: May 10, 2024 11:50 AM Reporting Lab: [address] [address] Performing Lab: [address] [address] PROTEIN,TOTAL 7.7 g/dL 6.0-8.3 ALBUMIN 4.4 g/dL 3.5-5.0 ALKALINE PHOSPHATASE 54 U/L 40-150 AST 23 U/L 5-34 ALT 32 U/L BILIRUBIN, TOTAL 0.9 mg/dL 0.2-1.2 May 10, 2024 11:57 AM [facility] BASIC METABOLIC PANEL (non-fasting) SERUM Spe cimen Type: SERUM No comment entered. Ordering Provider: GUDELIA MERIDA Report Released Date/Time: May 10, 2024 11:50 AM Reporting Lab: [address] [address] Performing Lab: [address] [address] UREA NITROGEN 14 mg/dL 7-25 GLUCOSE 94 mg/dL 65-100 SODIUM 136 mmol/L 135-145 POTASSIUM 4.4 mmol/L 3.5-5.0 CHLORIDE 103 mmol/L 100-110 CO2 25 meq/L 20-30 CREATININE, Serum 1.18 mg/dL 0.50-1.40 eGFR(CKD-EPI 2020) 68 mL/min >60 May 10, 2024 11:57 AM [facility] CBC BLOOD Specimen Type: BLOOD No comment entered. Ordering Provider: GUDELIA MERIDA Report Released Date/Time: May 10, 2024 11:50 AM Reporting Lab: [address] [address] Performing Lab: [address] [address] WBC 6.13 10*3/uL 4.50-11.00 RBC 5.21 10*6/uL [...] Height Weight Body Mass Index Source May 19, 2024 10:12 AM 97.8 55 146/87 [address] [facility] Social History: Smoking Status (Most current) and Tobacco Use (All prior to encounter date) This section includes the most current, and the historical, smoking and tobacco- related health factors from the [place] facility where the Encounter took place. Current Smoking Status This section includes the most current smoking, or tobacco-related health factor, from the [place] facility where the Encounter took place. Date/Time Current Smoking Status Comment Facil ity May 10, 2024 11:00 AM [place]-TOBACCO NEVER U SED CIGARETTES [facility] Tobacco Use History This section includes a history of the smoking, or tobacco-related health factors, that were collected on or before the date of the Encounter. The data comes from the [place] facility where the Encounter took place. Date/Time Smoking Status/Tobacco Use Comment F acility May 10, 2024 11:00 AM [place]-TOBACCO NEVER U SED OTHER TYPE [facility] Jun 06, 2023 12:22 PM VA-TOBACCO NEVER USED [facility] Radiology Reports: +/- 30 days of the [...] the Encounter. The data comes from all [place] treatment facilities. Date/Time Radiology Report Provider Source May 19, 2024 11:19 AM SPINE LUMBOSACRAL MIN 2 VIEWS: PATRICIAROJELIOUzile RUGGIERO [id number] -1955 M Exm Date: MAY 19, 2024@11:19 Req Phys: FURMARGARITA MAGALLONA Pat Loc: CWM/NO/PACT EIGHT (Req'g Loc) Img Loc: [facility]/BUILDING 1 Service: Unknown [place] [address] (Case [id number] COMPLETE) SPINE LUMBOSACRAL MIN 2 VIEWS (RAD Detailed) CPT:57248 Reason for Study: low back pain Clinical History: prev saw physiatry- chronic back pain Report Status: Verified Date Reported: MAY 19, 2024 Date Verified: MAY 19, 2024 C D Stripper E-Sig:/ES/TRACIE HARVEY JR Report: Study: AP, lateral [...] Primary Interpreting Staff: TRACIE HARVEY JR, Radiologist (C D Stripper) /TRACIE WOMACK JR [facility] Encounter Notes: All associated encounter notes This section contains the clinical notes associated to the Encounter. Date/Time Encounter Note(s) Provider Source May 19, 2024 10:23 AM PHYSICIAN NOTE: LOCAL TITLE: MD NOTE STANDARD TITLE: PHYSICIAN NOTE DATE OF NOTE: MAY 19, 2024@10:23 ENTRY DATE: MAY 19, 2024@10:23:47 AUTHOR: GUDELIA MERIDA EXP COSIGNER: URGENCY: STATUS: COMPLETED PATRICIABLAYNE is a 68 year old WHITE MALE who is being seen today for BP follow-up == CARE TEAM == Community Primary Care Provider: Dr. Aba Huang [facility], [facility] Specialists: resp therapy Community Specialists: GI- [facility] Software Specialist- [place] [facility], Dr. 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 does have untreated sleep apnea saw [facility]- ordered barium swallow, then decide if needs EGD == RELEVANT PAST MEDICAL HISTORY == Active problems - Computerized Problem List is the source for the followin. HTN - Hypertension ([facility] [id number]) 2. Sleep apnea [facility] [place] 3. Backache 4. Gastroesophageal reflux disease 5. Cataract ([facility] [id number]) 6. Hearing loss 7. Chronic maxillary sinusitis 8. Mood disorder 9. AR - Allergic rhinitis 10. 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 Active and Recently Outpatient Medications (excluding Supplies): Active Non-VA Medications Status 1) Non-VA ALBUTEROL 90MCG (CFC-F) 200D ORAL INHL 1 PUFF ACTIVE BY MOUTH TWICE DAILY NEEDED 2) Non-VA FLUTICAS 500/SALMETEROL 50 INHL DISK 60 1 PUFF ACTIVE BY MOUTH TWICE DAILY 3) Non-VA OMEPRAZOLE 20MG EC CAP 20MG BY MOUTH EVERY ACTIVE MORNING 30 MINUTES BEFORE BREAKFAST == REVIEW OF SYMPTOMS == POSITIVE FOR: back pain NEGATIVE FOR: CONSTITUTION: no weight loss/gain, fatigue, fevers, night sweats HEENT: no vision problems, hearing loss,swallowing difficulties, sinus pain CV: no chest pain, palpitations, dyspnea on exertion, orthopnea RESP: no cough, shortness of breath, wheezing GI: no abdominal pain, N/V/D, constipation, blood in stool, normal appetite : no urinary frequency, nocturia, hematuria MUSC: no joint pain, joint swelling, muscle aches NEURO: no headaches, dizziness, memory loss, tremor, weakness PSYCH: no depression, anxiety, suicidal or homicidal thoughts SKIN: no rash, new skin lesions == PHYSICAL EXAM == Vitals: - - - - - - - B/P: 146/87 (05/19/2024 10:12) pulse: 55 (05/19/2024 10:12) resp: 16 (05/19/2024 10:12) temp: 97.8 F [36.6 C] (05/19/2024 10:12) Ht: 68 in [172.7 cm] (08/10/2023 11:10) Wgt: 200 lb [90.72 kg] (05/19/2024 10:12) BMI: BMI: 30.5 Exam: - - - - - - - NAD short/thick neck no LE edema == RECENT LABS == RESULT: Esophagus Barium Swallow PROCEDURE: Esophagus Barium Swallow CLINICAL INDICATION: Reason: Dysphagia; Clinical Question(s): Other: FINDINGS: Swallow: Normal oral and pharyngeal phases with no laryngeal penetration or subglottic aspiration. Esophagus: Normal in contour and mucosal appearance. Normal esophageal motility, with prompt transit of liquid barium into the stomach. Sliding, type I hiatal hernia. Spontaneous gastroesophageal reflux to the distal esophagus was appreciated during the study with esophageal shiver. A 13 mm barium tablet passed unimpeded into the stomach. No evidence of esophageal web, narrowing or outpouching. No esophageal obstruction. The stomach and proximal duodenum are grossly normal. Contrast promptly empties from the stomach into a nondilated duodenum. No gastric outlet obstruction. IMPRESSION: 1. Small, sliding, type I hiatal hernia. 2. Gastroesophageal reflux. == ASSESSMENT AND PLAN == 1. sleep apnea- had sleep study -seen by respiratory department- hard for him to wear the mask. not really wanting to get dental device or inspire. motivated to lose some weight. has thick short neck. 2. GERD- on omeprazole daily- has had EGDs, occasioanlly food gets stuck- did have normal barium swallow- just a hital hernia and evidence of GERD. on PPI daily. disucssed stopping eating after 6 pm 3. low back pain- longstanding- mainly painful when twists. previously saw physiatry in community- received injections. suggested inversion table. will do PT and xray. will also refer to physiatry 4. HTN- elevated BP- just started amlodipine less than 5 days ago- keeping track of readings, improving. disucssed untreated sleep apnea can lead to elevated BP 5. obesity- in college was 185 lbs. does work out daily, not very sedentary. does have large portions at meals. discussed MOVE program. discussed intermittent fasting- which woudl likely help with weight loss as well as GERD issues 6. tinnitus- stable == HEALTH MAINTENANCE == Colonoscopy - 6 years ago- [facility] Abdominal Aortic Aneurysm Screening (due at age 65 if smoker/prev smoker) - Prostate screening - Tetanus: due every 10 years Pneumonia Vacccine: Flu Vaccine: due yearly Covid Vaccine: due yearly == FOLLOW UP == f/u in 1 year VISIT TYPE:a HIGH complexity visit where 60 minutes was spent in direct patient care, review of records and documentation. /ronnie/ GUDELIA MERIDA D.O. PHYSICIAN Signed: 05/19/2024 11:19 GUDELIA MERIDA [place] [facility]
--- OUTSIDE RECORDS SUMMARY | 2024-08-30 08:06 | XMS_ITS | Continuity of Care Document ---
Author Organization [facility] Address [address] [place] [address]- Care Team Providers Care Operations Support Manager Name Role Phone Yinka GARCIA, Aba Mcdonald Primary Care Physician Encounter [facility] Date(s): 07/29/24 - 08/28/24 [facility] [address] [place], [place] [address] Encounter Type: Triage Allergies, Adverse Reactions, Alerts No Known Allergies Immunizations Given and Recorded Vaccine Date Status Refusal Reason pneumococcal 20-valent conjugate vaccine 1 08/03/23 Given influenza virus vaccine, inactivated 2 02/21/22 [facility] [place] influenza virus vaccine, inactivated 3 02/12/21 [facility] [place] influenza virus vaccine, inactivated 02/09/19 [facility] influenza virus vaccine, inactivated 01/26/18 [facility] influenza virus vaccine, inactivated 01/30/15 [facility] influenza virus vaccine, inactivated 02/01/14 [facility]ded influenza virus vaccine, inactivated 05/06/13 [facility] rded influenza virus vaccine, inactivated 12/18/10 [facility] SARS-CoV-2 (COVID-19) mRNA-1273 vaccine 09/20/20 R ecorded SARS-CoV-2 (COVID-19) mRNA-1273 vaccine 08/17/20 R ecorded zoster vaccine, inactivated 05/09/19 Recorded zoster vaccine, inactivated 02/09/19 Recorded tetanus-diphtheria toxoids (Td) 01/26/18 Recorded pneumococcal 23-valent vaccine 12/27/13 Recorded tetanus/diphtheria/pertussis, acel(Tdap) 08/09/07 Recorded 1Result Comment: [id number] 2Result Comment: Patient tollerated well 3Result Comment: [facility]: [id number] Problem List Condition Confirmation Course Effective Dates Status Health St atus Informant Actinic keratosis Confirmed Active Overweight (BMI 25.0-29.9) Confirmed Active CKD (chronic kidney disease), stage III Confirmed Active Chronic low back pain Confirmed Active Chronic neck pain Confirmed Active Erectile dysfunction Confirmed Active Chronic reflux esophagitis Confirmed Active Moderate persistent asthma Confirmed Active Nocturia Confirmed Active Obese class I Confirmed Active Obstructive sleep apnea 1 Confirmed Active study [facility] through [facility] Social History Social History Type Response Smoking Status Never (less than 100 in lifetime) entered on: 02/12/21 Sex Sex Representation Male (finding) Patient Care team information Care Team Personnel Name: Yinka GARCIA, Aba Mcdonald Position: [facility] Physician - Primary Care Member Role: PCP Address: [address] [place] [address] [facility] [address] Telecom: Care Team Related Persons Name: REBECCA GOMEZ Insurance Providers Guarantor name: BLAYNE GOMEZ Health Plan Information #: 1 Payer: NA Member Number: NA Policy Number: NA Group Number: NA
--- OUTSIDE RECORDS SUMMARY | 2024-08-30 08:06 | XMS_ITS ---
Author Organization [facility] Address [address] [address] Care Team Providers Care Painter And Body Mechanic Apprentice Name Role Phone YinkaAba Primary Care Provider DIVYA Barnard [phone] Allergies No Known Allergies REASON FOR VISIT b/l injections Medications Medication SIG (Take, Route, Frequency, Duration) Notes Start Date End Date Status Advair Diskus 250-50 MCG/ACT 1 puff Inhalation Twice a day Active Sildenafil Citrate 100 MG 1 tablet as needed Orally Once a day Not-Taking ProAir HFA Not-Takin g Clotrimazole-Betamethaso ne 1-0.05 % 1 application Externally Twice a day for 90 days 01/29/2024 Active Clotrimazole-Betamethaso ne 1-0.05 % 1 application Externally Twice a day for 28 days 10/30/2022 Not-Taki ng Omeprazole 20 MG 1 capsule 30 minutes before morning meal Orally Once a day Active Vital Signs Height 5ft 8in in 04/18/2024 Weight 198 lbs 04/18/2024 BMI 30.1 kg/m2 04/18/2024 Procedures Procedure Date Ordered Date Performed Result Body Sit e DRAIN/INJECT, SMALL JOINT/BURSA 04/18/2024 N/A Encounters Encounter Location Date Provider Diagnosis [facility] [address] [address] 04/18/2024 DIVYA WALSH Arthritis of right midfoot M19.071 ; Arthritis of left midfoot M19.072 ; Pain in right foot M79.671 and Pain in left foot M79.672 Assessments Encounter Date Diagnosis (ICD Code) Assessment Notes Treatment Notes Treatment Clinical Notes Section Notes 04/18/2024 Arthritis of right midfoot (ICD-10 - M19.071) [...] running activity for the next 2 days. He will follow back with me as needed. I encouraged him to call with any questions or concerns. 04/18/2024 Arthritis of left midfoot (ICD-10 - M19.072) 04/18/2024 Pain in right foot (ICD-10 - M79.671) 04/18/2024 Pain in left foot (ICD-10 - M79.672) Plan Of Treatment Pending Test Test Name Order Date DRAIN/INJECT, SMALL JOINT/BURSA 04/18/19 25 Next Appt Details Follow Up: 4 Months, Reason: Medications Administered Medication Instructions Date of Administration Dosage Notes dexAMETHasone Sod Phosphate PF 04/18/2024 4 mg Kenalog 04/18/2024 10 mg Progress Notes * Clinton GOMEZ DDOB:1955 (68 yo M)Acc No.[id number]:04/18/2024 Patient:?Clinton GOMEZ D Provider:Yogesh Oconnell DPM :1955???Age:68 Y???Sex:Male Landon e:04/18/2024 Address:[address] [place], [place] [address] [phone] Pcp:Aba Honeycutt Subjective: * Chief Complaints: * ???B/l injections * HPI: ???Foot & Ankle:?Mr. Gomez is a pleasant 68 year old male who presents for follow up of his bilateral midfoot arthrosis. It continues to be bothersome. He states some days are better than others. It feels like a deep ache in the middle of the foot. He has no swelling assocaited with it. He states the injections give him temporary relief. He has an upcoming trip to go on and would like to have repeat injections before the trip. He denies any new issues since his last visit with me. * ROS:?General/Constitutional:?Denies?Chills.?Denies?Fatigue.?Denies?Fever.?Denies?Headache.?Respiratory:?Denies?Cough.?Denies?Shortness of breath,?denies.?Denies?Wheezing.?Cardiovascular:?Denies?Chest pain.?Denies?Claudication.?Denies?Cyanosis.?Gastrointestinal:?Denies?Abdominal pain.?Denies?Constipation.?Denies?Diarrhea.?Musculoskeletal:?Patient complaining of?right and left foot pain at the midfoot.?.?Admits?Arthritis/Arthralgia.?Denies?Leg cramps.?Denies?Limping gait.? * Medical History:? * Surgical History:?right ingu inal hernia repair left inguinal hernia repair wisdom teeth extraction (4) * Hospitalization/Major Diagno stic Procedure:?right inguinal hernia repair left inguinal hernia repair * Family History:?Father: dece ased, heart attack.?Mother: arthritis.?Siblings: brother- alcohol abuse.? * Social History:?Tobacco: never Alcohol: yes, 1-2 times per week Retired [employer]. * Medications:?TakingOmeprazol e 20 MG Capsule Delayed Release 1 capsule 30 minutes before morning meal Orally Once a day Advair Diskus 250-50 MCG/ACT Aerosol Powder Breath Activated 1 puff Inhalation Twice a day Clotrimazole-Betamethasone 1-0.05 % Cream 1 application Externally Twice a day Taking Omeprazole 20 MG Capsule Delayed Release 1 capsule 30 minutes before morning meal Orally Once a day Taking Advair Diskus 250-50 MCG/ACT Aerosol Powder Breath Activated 1 puff Inhalation Twice a day Taking Clotrimazole-Betamethasone 1-0.05 % Cream 1 application Externally Twice a day Swo-JxmdvjTdbynpjuwmbo-Ezoizpizxjrcs 1-0.05 % Cream 1 application Externally Twice [...] Assessment: 1.?Arthritis of right midfoo t - M19.071???2.?Arthritis of left midfoot - M19.072???3.?Pain in right foot - M79.671???4.?Pain in left foot - M79.672??? Plan: * Treatment: * Procedures:?FLUOROSCOPY GUIDED INJECTION RIGHT AND LEFT [...] : 4 mg given by DIVYA WALSH , D.P.M. (Arthritis of right midfoot, Arthritis of left midfoot)??? Kenalog : 10 mg given by DIVYA WALSH D.P.M. (Arthritis of right midfoot, Arthritis of left midfoot) * Procedure Codes:? DRAIN /INJECT, SMALL JOINT/BURSA, Modifiers: 50 J1100 INJ DEXAMETHASONE SODIM PHOSHATE 1 MG, Units: 4.00 J3301 INJ TRIAMCINOLONE ACETONIDE 10 MG * Follow Up:?4 Months * Billing Information: * Visit Code:? * Procedure Codes:? DRAIN/INJECT, SMALL JOINT/BURSA. Modifiers: 50 J1100 INJ DEXAMETHASONE SODIM PHOSHATE 1 MG. Units: 4.00. J3301 INJ TRIAMCINOLONE ACETONIDE 10 MG. * Sign off status: Completed true * Provider:?Divya Oconnell DPM Date:?04/18 Generated for Sydney mccabe/Abelardo/Anthonyransmitting on:?08/30/2024 08:06 AM EDT History and Physical [...]
--- OUTSIDE RECORDS SUMMARY | 2024-08-30 08:07 | XMS_ITS | Encounter Summary ---
Author Name [facility] [place] [facility] [place] Address [address] [place] [id number] Care Team Providers Care Technical Testing Engineer Name Role Phone GUDELIA MERIDA Primary [...] PRESCRIPT ION RX Apr 13, 2022 THPRX [id number] [phone] ROJELIO GOMEZ PATIENT [facility] Apr 13, 2017 [id number] [phone] ROJELIO GOMEZ PATIENT [facility] E Apr 13, 2017 [facility] [id number] [phone] ROJELIO GOMEZ PATIENT Selected Encounter This section includes the information on record at [place] for the Encounter. Date/Time Encounter Type Encounter Description Reason Provider Source Mar 22, 2024 03:00 PM INFRARED THERAPY [facility] TREATMENT ICD-10-CM M54.59 Other low back pain OSWALDO SNELL IHE Encounter Template Text not used by [facility] Assessments - Encounter Diagnoses This section includes the primary and secondary diagnoses documented for the Encounter. Date/Time Primary/Secondary Diagnosis Diagnosis Name Provider Source Mar 22, 2024 03:38 PM PRIMARY Other low back pain BASSAM SNELL [place] [facility] [place] [facility] Mar 22, 2024 03:38 PM SECONDARY Anxiety disorder, unspecified BASSAM SNELL [place] [facility] [place] [facility] Plan of Treatment: Future Appointments (+ 6 months) and Future Tests (+/- 45 days) The Plan of Treatment section includes future care activities for the patient from all [place] [facility]. This section includes future appointments and future orders which are active, pending or scheduled. Future Appointments This section includes appointments that were scheduled to occur 6 months from the date of the Encounter, up to a maximum of 20 appointments. The data comes from all [place] treatment facilities. Appointment Date/Time Appointment Type Appointme nt Facility Name May 05, 2024 01:00 PM AMBULATORY - MEDICINE [place] [facility] [place] [facility] May 10, 2024 09:00 AM AMBULATORY - MEDICINE [place] [facility] [place] [facility] May 10, 2024 10:00 AM AMBULATORY - MEDICINE [place] [facility] [place] [facility] May 10, 2024 10:01 AM AMBULATORY - MEDICINE [facility] May 10, 2024 11:00 AM AMBULATORY - MEDICINE [place] [facility] [place] [facility] May 19, 2024 10:30 AM AMBULATORY - MEDICINE [place] [facility] [place] [facility] Jun 03, 2024 08:30 AM AMBULATORY - MEDICINE [place] [facility] [place] [facility] Jun 24, 2024 08:30 AM AMBULATORY - REHAB MEDICIN [facility] Jun 27, 2024 09:00 AM AMBULATORY - MEDICINE [place] [facility] [place] [facility] Jun 30, 2024 09:00 AM AM[facility]ULATORY - NONE [facility] Jun 30, 2024 11:00 AM AMBULATORY - MEDICINE [place] [facility] [place] [facility] Jul 04, 2024 09:00 AM AMBULATORY - REHAB MEDICIN [facility] Jul 07, 2024 09:00 AM [facility]ORY - NONE [facility] Jul 25, 2024 09:00 AM AMBULATORY - MEDICINE [place] [facility] [place] [facility] Jul 25, 2024 10:00 AM [facility] Jul 28, 2024 09:00 AM [facility] - NONE [facility] Jul 29, 2024 08:00 AM AMBULATORY - REHAB MEDICIN [facility] Aug 02, 2024 08:30 AM AMBULATORY - MEDICINE [facility] Aug 02, 2024 08:31 AM [facility] Aug 04, 2024 09:00 AM [facility] NONE [facility] Social History: Smoking Status (Most current) and Tobacco Use (All prior to encounter date) This section includes the most current, and the historical, smoking and tobacco- related health factors from the [place] facility where the Encounter took place. Current Smoking Status This section includes the most current smoking, or tobacco-related health factor, from the [place] facility where the Encounter took place. Date/Time Current Smoking Status Comment Cari benton Jun 06, 2023 12:22 PM VA-TOBACCO NEVER USED [facility] Encounter Notes: All associated encounter notes This section contains the clinical notes associated to the Encounter. Date/Time Encounter Note(s) Provider Source Mar 22, 2024 03:32 PM ACUPUNCTURE CONSULT: LOCAL TITLE: CONSULT REPORT/ACUPUNCTURE STANDARD TITLE: ACUPUNCTURE CONSULT DATE OF NOTE: MAR 22, 2024@15:32 ENTRY DATE: MAR 22, 2024@15:32:37 AUTHOR: GEORGINA SNELL EXP COSIGNER: URGENCY: STATUS: COMPLETED BLAYNE GOMEZ is a 68 WHITE MALE who presents with Chronic low back pain Active Problem Sleep apnea G47.30 08/10/2023 FURCOLO,GUDELIA Backache M54.59 08/10/2023 FURCOLO,GUDELIA Gastroesophageal reflux disease K21 08/10/2023 FURCOLO,GUDELIA Elevated blood-pressure reading wit 08/10/2023 FURCOLO,GUDELIA Cataract ([facility] [id number]) H26.9 06/23/2023 MISTY BURDICK Hearing loss H91.90 06/23/2023 MISTY BURDICK Chronic maxillary sinusitis J32.0 06/23/2023 MISTY BURDICK Mood disorder F39. 06/23/2023 MISTY BURDICK AR - Allergic rhinitis J30.9 06/23/2023 MISTY BURDICK Tinnitus H93.19 06/23/2023 MITSY BURDICK Date Mar CC / HPI - presents with history of chronic low back pain. 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 states the pain is focused in the lumbar and SI joint. states that there is no radiation of pain into his legs or buttocks. has current pain level of 3/10 but pain can flare with specific movements. states that twisting and bending movements especially simultaneously can drop him to his knees . states specifically getting off the toilet and wiping himself can flare his pain. Most recent flare was 2 days ago. Hoffman has had acupuncture prior to COVID and found moderate relief. states he also has intermittent neck issues but generally his upper back does not cause him complaint. Hoffman has an additional complaint of tinnitus which he says makes him crazy. Hoffman states that over the past year or so he has had increasing anxiety and blames it on the tendinitis. TREATMENT HISTORY of Main Complaint: Prior history of acupuncture CLIENT GOALS FOR TREATMENT: Reduce back pain PAST MEDICAL HISTORY: See co-morbidity in Assessment PAST SURGICAL HISTORY: REVIEW OF SYSTEMS: Except for what is mentioned in the HPI/SYMPTOMS there are no complaint of: Headache, Radicalgia, weakness, fever, sore throat, chest pain, shortness of breath, joint swelling, dizziness, vision loss, unexplained weight loss, bowel or bladder incontinence/retention or saddle anesthesia OBJECTIVE: Unless otherwise noted noted in HPI/Symptoms. General: . Patient in no apparent distress . appropriate attire . here with equanimity Skin: . No effusion/edema . No ecchymosis . No erythema MUSCULOSKELETAL: Observed . no signs of trauma Ambulation . independent ambulation . non-antalgic ambulation Physical Ability to Transfer: . Patient was able to get on/off the treatment table unassisted. Posture . no antalgic posture Extremities . functional AROM BACK / SPINE . no overt deformity of spine . no pelvic unleveling NEUROLOGIC: Mentation . A&Ox3 Gait [ ]antalgic [X]non-antalgic [ ]ataxic [ ]Wheel Chair, Walker, Cane ASSESSMENT / SUMMARY Affected Channel(s)/OM Dx: Medical Decision Making (MDM) [ ]Straightforward o [ ]Minimal = 1 self-limited or minor problem [X]Low o - 2 or more self-limited or minor problems o - 1 stable chronic illness o - 1 acute, uncomplicated illness or injury [ ]Moderate o - 1 or more chronic illness with exacerbation, progression or side effect from treatment o - 2 or more stable chronic illnesses o - 1 undiagnosed new problem w/uncertain prognosis o - 1 acute illness w/ systemic symptoms o - 1 acute complicated injury [ ]High o - 1 or more chronic illnesses w/ severe exacerbation, progression, or side effect from treatment o - 1 acute or chronic illness/injury that poses threat to life or bodily function PLAN / RECOMMENDATION: Weekly treatment for 4 weeks as schedule permits and then assess. Follow-up visit [X]1 WEEK [ ]2 WEEKS [ ]3 WEEKS [ ]1 MONTH FREQUENCY OF CARE [X]1 X WEEKLY, [ ]2 X WEEKLY [ ]Bi-Weekly, [ ]Monthly, [ ]Other Seeking: [ ]access to acupuncture for: [X]pain control [X]Stress/anxiety reduction, [ ]Depression [ ]Other mental health: [ ]Addiction/dependence: [ ]Nicotine [ ]Alcohol [ ]Chemical [ ]Other: Patient Education: [X]Encouraged self-care management using active therapies. [ ](exercises, therapeutic movement, PT, biofeedback, smoking cessation, health coaching) to manage chronic pain while engaging passive therapies (acupuncture / chiropractic / massage) to manage [ ]acute / [ ]subacute (persistent) pain. [ ]Counseled not to view exercise as an analgesic, but as modalities to improve flexibility, strength, and conditioning. [ ]Additionally, counseled to stay within tolerances when doing daily tasks / exercise i.e. use pacing to moderate aggravation of sx. [ ]Attempt 2 to 3 times per week [ ]Modify as needed [ ]Refrain from exercises if aggravation or new symptoms appear [ ]Do not use acupressure over area where you have a wound, severe swelling or lump, active infection, recent blood clots, rash, or areas that are numb. However, you may use other points away from these areas. If you take medications to thin your blood, or have a bleeding or clotting disorder, only use light pressure. [ ]Self-care management encouraged by focus on self-care strategies to improve flexibility, strength and conditioning, not to view exercise as an analgesic yet modalities to improve gross motion as chronic pain undermines core movements. [ ]Discussed expected course of condition and self-care management via weight-management, healthy diet, regular exercise within patient tolerance and pragmatic use of passive modalities for short-term relief stressing not to solely rely on passive modalities. Also counseled on non-pharmacological therapies/treatments such as acupuncture / acupressure on acute episodes of pain. Furthermore, consider exercise therapy, yoga, qigong, suzan chi, relaxation technique and/or cognitive-behavior methodologies regarding chronic and/or persistent sub-acute pain. INSTRUCTIONS: [X]Rest, hydrate, eat [ ]BFA Patient Information Home Removal - [ ]Remove after 3 days and dispose of in approved sharpes container or comparable container - [ ]or return to clinic or PCP in three days to remove auricular needles - [ ]Pyonex Needle: remove prior to bathing per textile artist __ INFORMED CONSENT: Oral Consent obtained on Mar The patient was positioned comfortably. Oral consent was obtained. There was no evidence of infection at the site of needle insertions. Time out was conducted by Georgina Snell L.Ac. Correct patient was identified using two identifiers. Acupuncture treatment including risk/side effects, benefits, alternatives to treatment and the management plan were reviewed with the patient who expressed understanding and agreed. Correct procedure verified by the patient and the provider. PROCEDURES: Number of Acupuncture Sets: [ ]1 [X]2 [ ]3 Set 1 TIME SPENT: 15 Minutes Position:[X]Prone [ ]Supine [ ]Left Side [ ] Right Side [ ]Seated Chair [ ] Massage Chair Points used: [X]Ear:[ ]Left [ ]Right [ ]Bilateral [ ]BFA Protocol, [ ]NADA Protocol, [ ]ATP Protocol [X]Ear: [X]Covarrubias Men, [X]Point Zero, [X]Sympathetic [ ]Ear Other: [ ]Head: [ ]Neck: [ ]Torso: [ ]Hip / Glute Area: [ ]LUE: [ ]RUE: [ ]LLE: [ ]RLE: Set 2 TIME SPENT: 15 Minutes Position:[X]Prone [ ]Supine [ ]Left Side [ ] Right Side [ ]Seated Chair [ ] Massage Chair Points used: [ ]Ear:[ ]Left [ ]Right [ ]Bilateral [ ]BFA Protocol, [ ]NADA Protocol, [ ]ATP Protocol [ ]Ear: [ ]Covarrubias Men, [ ]Point Zero, [ ]Sympathetic [ ]Ear Other: [ ]Head: [ ]Neck: [ ]Torso: [ ]Hip / Glute Area: [ ]LUE: [ ]RUE: [ ]LLE: [ ]RLE: [ ]Other therapies: [ ]Cold Laser [ ]Cupping: [ ]Peizo Pen: [ ]External Qigong: [X]TDP Lamp:Feet [ ]Tui Na: [ ]Guasha: [ ]Nutrition Counseling: The procedures were performed and needles removed without complication. Treatment Response: [X]nominal / [ ]negative / [ ]aborted due to [ ]F/U PRN self-schedule upon unresolving re-aggravation or with degrading pain control. An RTC order will be necessary if patient is seeking self-schedule beyond one year; If beyond three years, a new consult is required. /ronnie/ GEORGINA SNELL LA.C, DIPL.AC LIBRARY CIRCULATION ASSISTANT Signed: 03/22/2024 15:59 GEORGINA SNELL [place] [facility]
--- OUTSIDE RECORDS SUMMARY | 2024-08-30 08:07 | XMS_ITS | Encounter Summary ---
Author Name [facility] [place] [facility] [place] Address [address] [place] [address] Care Team Providers Care Hull Grinder Name Role Phone GUDELIA MERIDA Primary Care [...] PRESCRIPT ION RX Apr 13, 2022 THPRX [id number] [phone] PATRICIAROJELIO Uziel PATIENT [facility] Apr 13, 2017 [id number] [id number] ROJELIO GOMEZ PATIENT [facility] E Apr 13, 2017 [facility] [id number] ROJELIO GOMEZ PATIENT Selected Encounter This section includes the information on record at [place] for the Encounter. Date/Time Encounter Type Encounter Description Reason Provider Source May 10, 2024 10:01 AM OFFICE O/P NEW MOD 45 MIN SLEEP MEDICINE ICD-10-CM G47.33 Obstructive sleep apnea (adult) (pediatric) CHALO MALLOY Encounter Template Text not used by [place] Assessments - Encounter Diagnoses This section includes the primary and secondary diagnoses documented for the Encounter. Date/Time Primary/Secondary Diagnosis Diagnosis Name Provider Source May 10, 2024 11:12 AM PRIMARY Obstructive sleep apnea (adult) (pediatric) CHALO MALLOY [facility] Plan of Treatment: Future Appointments (+ 6 months) and Future Tests (+/- 45 days) The Plan of Treatment section includes future care activities for the patient from all [place] [facility]. This section includes future appointments and future orders which are active, pending or scheduled. Future Appointments This section includes appointments that were scheduled to occur 6 months from the date of the Encounter, up to a maximum of 20 appointments. The data comes from all [place] treatment facilities. Appointment Date/Time Appointment Type Appointme nt Facility Name May 19, 2024 10:30 AM AMBULATORY - MEDICINE [place] [facility] [place] [facility] Jun 03, 2024 08:30 AM AMBULATORY - MEDICINE [place] [facility] [facility] Jun 24, 2024 08:30 AM AMBULATORY - REHAB [facility]ICIN [facility] Jun 27, 2024 09:00 AM AMBULATORY - MEDICINE [place] [facility] [facility] Jun 30, 2024 09:00 AM [facility]ORY - NONE [facility] Jun 30, 2024 11:00 AM AMBULATORY - MEDICINE [place] [facility] [place] [facility] Jul 04, 2024 09:00 AM [facility] 07, 2024 09:00 AM [facility] - [facility]ONE [facility] Jul 25, 2024 09:00 AM AMBULATORY - MEDICINE [place] [facility] [place] [facility] Jul 25, 2024 10:00 AM AMBULATORY - MEDICINE [place] [facility] [facility] Jul 28, 2024 09:00 AM AMBULATORY - NONE [facility] Jul 29, 2024 08:00 AM AMBULATORY - REHAB MEDICIN [facility] Aug 02, 2024 08:30 AM AMBULATORY - MEDICINE [place] [facility] [facility] Aug 02, 2024 08:31 AM [facility] Aug 04, 2024 09:00 AM AMBULATORY - NONE [facility] Aug 04, 2024 02:00 PM AMBULATORY - MEDICINE [place] [facility] [place] [facility] Aug 08, 2024 09:00 AM AMBULATORY - RE[facility]AB MEDICIN [facility] [place] August 11, 2024 09:30 AM [facility] August 15, 2024 09:00 AM AMBULATORY - REHAB MEDICIN [facility] [place] August 18, 2024 09:00 AM [facility] Lab Results: +/- 30 days of the encounter This section includes the Chemistry and Hematology Lab Results on record with [place] for the patient. Radiology Reports and Pathology Reports are provided separately, in subsequent sections. Lab Results This section contains the Chemistry/Hematology Results that were resulted 30 days before or 30 daysafter the date of the Encounter. Date/Time Source Result Type Result - Unit Interpretation Reference Range Specimen Type Comment May 10, 2024 11:57 AM [facility] LIVER FUNCTION SERUM Specimen Type: SERUM No comment entered. Ordering Provider: GUDELIA MERIDA Report Released Date/Time: May 10, 2024 11:50 AM Reporting Lab: [address] [id number] Performing Lab: [address] [address] PROTEIN,TOTAL 7.7 g/dL 6.0-8.3 ALBUMIN 4.4 g/dL 3.5-5.0 ALKALINE PHOSPHATASE 54 U/L 40-150 AST 23 U/L 5-34 ALT 32 U/L BILIRUBIN, TOTAL 0.9 mg/dL 0.2-1.2 May 10, 2024 11:57 AM [facility] BASIC METABOLIC PANEL (non-fasting) SERUM Spe cimen Type: SERUM No comment entered. Ordering Provider: GUDELIA MERIDA Report Released Date/Time: May 10, 2024 11:50 AM Reporting Lab: [address] [address] Performing Lab: [address] [address] UREA NITROGEN 14 mg/dL 7-25 GLUCOSE 94 mg/dL 65-100 SODIUM 136 mmol/L 135-145 POTASSIUM 4.4 mmol/L 3.5-5.0 CHLORIDE 103 mmol/L 100-110 CO2 25 meq/L 20-30 CREATININE, Serum 1.18 mg/dL 0.50-1.40 eGFR(CKD-EPI 2020) 68 mL/min >60 May 10, 2024 11:57 AM [facility] CBC BLOOD Specimen Type: BLOOD No comment entered. Ordering Provider: GUDELIA MERIDA Report Released Date/Time: May 10, 2024 11:50 AM Reporting Lab: [facility] [address] [address] Performing Lab: [address] [address] WBC 6.13 10*3/uL 4.50-11.00 RBC 5.21 10*6/uL 4.23-5.66 HGB 15.7 g/dL 12.8-17 HCT 46.0 39.2-50.4 MCV 88.3 fL 82-99 MCHC 34.1 g/dL 30.8-35.1 PLT 199 10*3/uL 140-360 RDW-CV 12.7 12.0-16.0 MCH 30.1 pg 26.2-32.6 Radiology Reports: +/- 30 days of the [...] the Encounter. The data comes from all [place] treatment facilities. Date/Time Radiology Report Provider Source May 19, 2024 11:19 AM SPINE LUMBOSACRAL MIN 2 VIEWS: BLAYNE GOMEZ MONIK [id number] -1955 M Exm Date: MAY 19, 2024@11:19 Req Phys: GUDELIA MERIDA Pat Loc: CWM/NO/PACT EIGHT (Req'g Loc) Img Loc: [facility]BUILDING 1 Service: [place] [address] (Case [id number] COMPLETE) SPINE LUMBOSACRAL MIN 2 VIEWS (RAD Detailed) CPT:25164 Reason for Study: low back pain Clinical History: prev saw physiatry- chronic back pain Report Status: Verified Date Reported: MAY 19, 2024 Date Verified: MAY 19, 2024 Forest Patrolman E-Sig:/ES/TRACIE HARVEY JR Report: Study: AP, lateral [...] immediate attention required Primary Interpreting Staff: TRACIE HAREVY JR, Radiologist (Forest Patrolman) /TRACIE WOMACK JR [facility] Encounter Notes: All associated encounter notes This section contains the clinical notes associated to the Encounter. Date/Time Encounter Note(s) Provider Source May 10, 2024 10:05 AM SLEEP MEDICINE CON SULT: LOCAL TITLE: SLEEP DISORDER INITIAL CONSULT NOTE STANDARD TITLE: SLEEP MEDICINE CONSULT DATE OF NOTE: MAY 10, 2024@10:05 ENTRY DATE: MAY 10, 2024@10:05:12 AUTHOR: CHALO MALLOY EXP COSIGNER: URGENCY: STATUS: COMPLETED SLEEP MEDICINE TELEMEDICINE CONSULT (CVT) This visit was conducted in CVT clinic. Reason for referral: [place] struggling with compliance, does not feel tired, [...] moderate GORDON on PSG 07/17/22 (scanned in [place]) which showed AHI of 26/hr, mean Sp02 [...] the mask on. 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 He [...] Lying down to rest in the afternoon 2 score Sitting and talking to someone 0 [...] STUDIES: PSG of 07/17/22 reviewed (scanned in [place]), study done in [facility] Impression: Moderate GORDON AHI: 25.6/hr, mean Sp02 94% with jean Sp02 of 80%,Sp02 < 90% 37.2 minutes TST: 444.5 minutes, SE: 86.56% PLMI: 12/hr BLAYNE GOMEZ 11/17/2023 - 02/14/2024 : 1955 Age: 69 years [place] Compliance Report Compliance Payor [place] [facility] Usage 11/17/2023 - 02/14/2024 Usage days [...] 154 hours AirSense 11 AutoSet Serial number [id number] Mode AutoSet Min Pressure 5 cmH2O Max [...] (average duration per night) 0 minutes (0% Impression: 69 year old with 1) Moderate [...] asymptomatic. 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
--- OUTSIDE RECORDS SUMMARY | 2024-08-30 08:07 | XMS_ITS | Encounter Summary ---
Author Name [facility] [place] Address [address] [place] [id number] Care Team Providers Care Circulation Sales Representative Name Role Phone GUDELIA MERIDA Primary Care [...] PRESCRIPT ION RX Apr 13, 2022 THPRX [id number] [phone] ROJELIO GOMEZ PATIENT [facility] Apr 13, 2017 [phone] ROJELIO GOMEZ PATIENT [facility] CHAN E Apr 13, 2017 [facility] [phone] ROJELIO GOMEZ PATIENT Selected Encounter This section includes the information on record at [place] for the Encounter. Date/Time Encounter Type Encounter Description Reason Provider Source Jul 25, 2024 09:00 AM INFRARED THERAPY CIH TREATMENT ICD-10-CM M54.50 Low back pain, unspecified BASSAM SNELL Shelly Encounter Template Text not used by [place] Assessments - Encounter Diagnoses This section includes the primary and secondary diagnoses documented for the Encounter. Date/Time Primary/Secondary Diagnosis Diagnosis Name Provider Source Jul 25, 2024 09:10 AM PRIMARY Low back pain, unspecified BASSAM SNELL [place] [facility] [place] [facility] Jul 25, 2024 09:10 AM SECONDARY Allergic rhinitis, unspecified BASSAM SNELL [place] [facility] [place] [facility] Jul 25, 2024 09:10 AM SECONDARY Chronic maxillary sinusitis BASSAM SNELL [place] [facility] [place] [facility] Jul 25, 2024 09:10 AM SECONDARY Nasal congestion BASSAM SNELL [place] [facility] [place] [facility] Plan of Treatment: Future Appointments (+ 6 months) and Future Tests (+/- 45 days) The Plan of Treatment section includes future care activities for the patient from all [place] [facility]. This section includes future appointments and future orders which are active, pending or scheduled. Future Appointments This section includes appointments that were scheduled to occur 6 months from the date of the Encounter, up to a maximum of 20 appointments. The data comes from all [place] treatment facilities. Appointment Date/Time Appointment Type Appointme nt Facility Name Jul 28, 2024 09:00 AM AMBULATORY - NONE [facility] Jul 29, 2024 08:00 [facility], [facility]24 08:30 AM AMBULATORY - MEDICINE [place] [facility] [place] [facility] Aug 02, 2024 08:31 AM AM[facility]UL[facility]ICINE [facility] Aug 04, 2024 09:00 AM AMBULATORY - NONE [facility] Aug 04, 2024 02:00 PM AMBULATORY - MEDICINE [facility] [place] [facility] Aug 08, 2024 09:00 AM AMBULATORY - REHAB [facility]IC[facility] August 11, 2024 09:30 AM AMBULATORY - MEDICINE [place] [facility] [place] [facility] August 15, 2024 09:00 AM AMBULATORY - REHAB MEDICIN [facility] August 18, 2024 09:00 AM AMBULATORY - NONE [facility] August 18, 2024 02:00 PM AMBULATORY - MEDICINE [place] [facility] [place] [facility] August 29, 2024 09:00 AM AMBULATORY - MEDICINE [place] [facility] [place] [facility] August 29, 2024 11:30 AM [facility] August 30, 2024 08:15 AM [facility] September 06, 2024 02:00 PM AMBULATORY - MEDICINE [facility] Active, Pending, and Scheduled Orders This section includes a listing of several types of active, pending, and scheduled orders, including clinic medications orders, diagnostic test orders, procedure orders and consult orders; where the start date of the order is 45 days before the date of the Encounter or 45 days after the date of theEncounter. The data comes from all [place] treatment facilities. Test Date/Time Test Type Test Details Facility Name Jun 30, 2024 11:41 AM Consult Order OTOLARYNGO LOGY/ENT ONE Cons Do All Operator's Choice [facility] Jul 29, 2024 01:24 PM Consult Order COMMUNITY CARE-COLONOSCOPY DIAGNOSTIC Cons Do All Operator's Choice [facility] Lab Results: +/- 30 days of [...] Type Comment Jul 24, 2024 12:00 AM [facility] OCCULT BLOOD FIT X1 SCREEN (MFP ONLY) FECES S pecimen Type: FECES No comment entered. Ordering Provider: GUDELIA MERIDA Report Released Date/Time: Jun 20, 2024 12:27 PM Reporting Lab: [facility] [address] [facility] [id number] Performing Lab: [address] [address] OCCULT BLOOD (FIT)#1 OF 1 POSITIVE HH NEG Social History: Smoking Status (Most current) and Tobacco Use (All prior to encounter date) This section includes the most current, and the historical, smoking and tobacco- related health factors from the [place] facility where the Encounter took place. Current Smoking Status This section includes the most current smoking, or tobacco-related health factor, from the [place] facility where the Encounter took place. Date/Time Current Smoking Status Comment Cari ity May 10, 2024 11:00 AM VA-TOBACCO NEVER U SED CIGARETTES [facility] Tobacco Use History This section includes a history of the smoking, or tobacco-related health factors, that were collected on or before the date of the Encounter. The data comes from the [place] facility where the Encounter took place. Date/Time Smoking Status/Tobacco Use Comment F acility May 10, 2024 11:00 AM VA-TOBACCO NEVER U SED OTHER TYPE [facility] Jun 06, 2023 12:22 PM VA-TOBACCO NEVER USED [facility] Encounter Notes: All associated encounter notes This section contains the clinical notes associated to the Encounter. Date/Time Encounter Note(s) Provider Source Jul 25, 2024 09:04 AM ACUPUNCTURE NOTE: LOCAL TITLE: ACUPUNCTURE TREATMENT STANDARD TITLE: ACUPUNCTURE NOTE DATE OF NOTE: JUL 25, 2024@09:04 ENTRY DATE: JUL 25, 2024@09:04:16 AUTHOR: GEORGINA SNELL EXP COSIGNER: URGENCY: STATUS: COMPLETED BLAYNE GOMEZ is a 69 WHITE MALE who presents with Chronic low back pain Active Problem Sleep apnea G47.30 08/10/2023 FURCOLO,GUDELIA Backache M54.59 08/10/2023 FURCOLO,GUDELIA Gastroesophageal reflux disease K21 08/10/2023 FURCOLO,GUDELIA Elevated blood-pressure reading wit 08/10/2023 FURCOLO,GUDELIA Cataract ([facility] [id number]) H26.9 06/23/2023 MISTY BURDICK Hearing loss H91.90 06/23/2023 MISTY BURDICK Chronic maxillary sinusitis J32.0 06/23/2023 MISTY BURDICK Mood disorder F39. 06/23/2023 MISTY BURDICK AR - Allergic rhinitis J30.9 06/23/2023 MISTY BURDICK Tinnitus H93.19 06/23/2023 MISTY BURDICK Date Jul CC / HPI - [place] presents with history of chronic low back pain. 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 [place] states the pain is focused in the lumbar and SI joint. [place] states that there is no radiation of pain into his legs or buttocks. has current pain level of 3/10 but pain can flare with specific movements. [place] states that twisting and bending movements especially simultaneously can drop him to his knees . states specifically getting off the toilet and wiping himself can flare his pain. Most recent flare was 2 days ago. has had acupuncture prior to COVID and found moderate relief. [place] states he also has intermittent neck issues but generally his upper back does not cause him complaint. [place] has an additional complaint of tinnitus which he says makes him crazy. states that over the past year or so he has had increasing anxiety and blames it on the tendinitis. RESPONSE TO PREVIOUS TREATMENT. reports no significant change in back pain with previous acupuncture treatments. Ham Sawyer and [place] agree that other options should be considered at this point. states he has a chiropractic visit scheduled immediately after his acupuncture this morning. [place] does complain of nasal sinus congestion due to allergies. [place] states his head feels like it is filled with a water balloon. OBJECTIVE General: . Patient in no apparent distress [...] Gait [ ]antalgic [X]non-antalgic [ ]ataxic [ ]wheel chair, walker, cane ASSESSMENT / SUMMARY Affected Channel: LESVIA, MIGUEL Medical Decision Making (MDM) * [ ]Straightforward o [ ]Minimal = 1 self-limited or minor problem * [ ]Low o - 2 or more self-limited or minor problems o - 1 stable chronic illness o - 1 acute, uncomplicated illness or injury * [ ]Moderate o - 1 or more chronic illness with exacerbation, progression or side effect from treatment o - 2 or more stable chronic illnesses o - 1 undiagnosed new problem w/uncertain prognosis o - 1 acute illness w/ systemic symptoms o - 1 acute complicated injury * [ ]High o - 1 or more chronic illnesses w/ severe exacerbation, progression, or side effect from treatment o - 1 acute or chronic illness/injury that poses threat to life or bodily function PLAN / RECOMMENDATION: Follow-up [X]1 WEEK [ ]2 WEEKS [ ]3 WEEKS [ ]1 MONTH FREQUENCY OF CARE [X]1 X WEEKLY, [ ]2 X WEEKLY [ ]Bi-Weekly, [ ]Monthly, [ ]Other Seeking: [ ]access to acupuncture for: [X]pain control [ ]frequency or [ ]as needed [ ]Stress/anxiety reduction, [ ]Other mental health [ ]Addiction/dependence: [ ]Nicotene [ ]Alcohol [ ]Chemical Patient Education: [ ]Encouraged self-care management using active therapies [ ](exercises, therapeutic movement, PT, biofeedback, smoking cessation, health coaching) to manage chronic pain while engaging passive therapies (acupuncture / chiropractic / massage) to manage [ ]acute / [ ]subacute (persistent) pain [ ]Counseled not to view exercise as [...] ]Pyonex Needle: remove prior to bathing per province archivist __ INFORMED CONSENT: Oral Consent obtained on Jul The patient was positioned comfortably. Oral consent [...] by the patient and the provider. PROCEDURES: Set 1 TIME SPENT: 15 Minutes Position:[X]Prone [ ]Supine [ ]Left Side [ ]Right Side [ ]Seated Chair [ ] Massage Chair Points used: [ ]Ear:[ ]Left [ ]Right [ ]Bilateral [ ]BFA Protocol, [ ]NADA Protocol, [ ][place], Point Zero, Sympathetic [ ] Ear: [ ]Covarrubias Men, [ ]Point Zero, [ ]Sympathetic [ ]Ear Other: [X]Head:GB 14, LI 20 [ ]Neck: [ ]Torso: [ ]Hip / [...] [ ]Torso: [ ]Hip / Glute Area: [X] LUE: LK, DB, ZB, SI 4 [X] RUE: Gina 5, Gina 5.5, Gina 6 [X] LLE: KD 3, KD 4, KD 5 [X] RLE: UB 65, GB 41, GB 40, GB 34 [ ]Other therapies: [ ]Cupping:Low back 10 minutes [ ]Cold Laser [ ]Peizo Pen: [ ]External Qigong: [ ]TDP Lamp:feet [ ]Tui Na: [ ]Guasha: [ ]Nutrition Counseling: The procedures were performed and needles removed without complication. Treatment Response: [X]nominal / [ ]negative / [ ]aborted due to [ ]F/U PRN self-schedule upon unresolving re-aggravation or with degrading pain control An RTC order will be necessary if patient is seeking self-schedule beyond one year; If beyond three years, a new consult is required /ronnie/ GEORGINA SNELL LA.C DIPL.AC DREDGE CAPTAIN Signed: 07/25/2024 11:41 GEORGINA SNELL CN[facility]L [facility]
--- OUTSIDE RECORDS SUMMARY | 2024-08-30 08:07 | XMS_ITS | Encounter Summary ---
Author Name [facility] [place] Address [address] [place] [address] Care Team Providers Care Power Truck Driver Name Role Phone GUDELIA MERIDA Primary Care [...] PRESCRIPT ION RX Apr 13, 2022 THPRX [id number] [phone] PATRICIAROJELIO Uziel PATIENT [facility] Apr 13, 2017 [id number] [phone] PATRICIAROJELIO Triplett [facility]IENT [facility] E Apr 13, 2017 [facility] [id number] [phone] ROJELIO GOMEZ PATIENT Selected Encounter This section includes the information on record at [place] for the Encounter. Date/Time Encounter Type Encounter Description Reason Provider Source Aug 02, 2024 08:31 AM OFFICE O/P EST MOD 30 MIN SLEEP MEDICINE ICD-10-CM G47.33 Obstructive sleep apnea (adult) (pediatric) CHALO MALLOY Encounter Template Text not used by [place] Assessments - Encounter Diagnoses This section includes the primary and secondary diagnoses documented for the Encounter. Date/Time Primary/Secondary Diagnosis Diagnosis Name Provider Source Aug 02, 2024 11:56 AM PRIMARY Obstructive sleep apnea (adult) (pediatric) CHALO MALLOY [facility] Plan of Treatment: Future Appointments (+ 6 months) and Future Tests (+/- 45 days) The Plan of Treatment section includes future care activities for the patient from all [place] [facility]. This section includes future appointments and future orders which are active, pending or scheduled. Future Appointments This section includes appointments that were scheduled to occur 6 months from the date of the Encounter, up to a maximum of 20 appointments. The data comes from all [place] treatment facilities. Appointment Date/Time Appointment Type Appointme nt Facility Name Aug 04, 2024 09:00 AM AMBULATORY - NONE [facility] Aug 04, 2024 02:00 PM AMBULATORY - MEDICINE [place] [facility] [place] [facility] Aug 08, 2024 09:00 AM AMBULATORY - REHAB MEDICIN [facility] August 11, 2024 09:30 AM AMBULATORY - MEDICINE [place] [facility] [place] [facility] August 15, 2024 09:00 AM AMBULATORY - REHAB MEDICIN [facility] August 18, 2024 09:00 AM AMBULATORY - NONE [facility] August 18, 2024 02:00 PM AMBULATORY - MEDICINE [place] [facility] [facility] August 29, 2024 09:00 AM AMBULATORY - MEDICINE [place] [facility] [place] [facility] August 29, 2024 11:30 AM AMBULATORY - MEDICINE [place] [facility] [place] [facility] August 30, 2024 08:15 AM AMBULATORY - NONE [facility] [place] [facility] September 06, 2024 02:00 PM AMBULATORY - MEDICINE [place] [facility] [place] [facility] Jan 31, 2025 11:00 AM AMBULATORY - MEDICINE [place] [facility] [place] [facility] Jan 31, 2025 11:00 AM AMBULATORY - MEDICINE [facility] Feb 01, 2025 09:00 AM AMBULATORY - REHAB MEDICIN E [place] [facility] [place] [facility] Active, Pending, and Scheduled Orders This section includes a listing of several types of active, pending, and scheduled orders, including clinic medications orders, diagnostic test orders, procedure orders and consult orders; where the start date of the order is 45 days before the date of the Encounter or 45 days after the date of theEncounter. The data comes from all [place] treatment facilities. Test Date/Time Test Type Test Details Facility Name Jun 30, 2024 11:41 AM Consult Order OTOLARYNGO LOGY/ENT ONE Cons Occupational Therapist'S Assistant's Choice [facility] Jul 29, 2024 01:24 PM Consult Order COMMUNITY CARE-COLONOSCOPY DIAGNOSTIC Cons Occupational Therapist'S Assistant's Choice [facility] Lab Results: +/- 30 days of the encounter This section includes the Chemistry and Hematology Lab Results on record with [place] for the patient. Radiology Reports and Pathology Reports are provided separately, in subsequent sections. Lab Results This section contains the Chemistry/Hematology Results that were resulted 30 days before or 30 daysafter the date of the Encounter. Date/Time Source Result Type Result - Unit Interpretation Reference Range Specimen Type Comment Jul 24, 2024 12:00 AM [facility] OCCULT BLOOD FIT X1 SCREEN (MFP ONLY) FECES S pecimen Type: FECES No comment entered. Ordering Provider: GUDELIA MERIDA Report Released Date/Time: Jun 20, 2024 12:27 PM Reporting Lab: [facility] [address] [facility] [address] Performing Lab: [address] [address] OCCULT BLOOD (FIT)#1 OF 1 POSITIVE HH NEG Encounter Notes: All associated encounter notes This section contains the clinical notes associated to the Encounter. Date/Time Encounter Note(s) Provider Source Aug 02, 2024 08:33 AM SLEEP MEDICINE NOT E: LOCAL TITLE: SLEEP DISORDER FOLLOW-UP NOTE STANDARD TITLE: SLEEP MEDICINE NOTE DATE OF NOTE: AUG 02, 2024@08:33 ENTRY DATE: AUG 02, 2024@08:33:38 AUTHOR: CHALO MALLOY EXP COSIGNER: URGENCY: STATUS: COMPLETED SLEEP MEDICINE TELEMEDICINE FOLLOW UP (CVT) This visit was conducted in CVT clinic. HPI: The patient is a 69 year old with a history of elevated BMI (31), chronic maxillary sinusitis, allergic rhinitis, asthma, GERD, tinnitus, and moderate GORDON on APAP who presents for follow up. He was initially seen in 04/2024 due to his history of CPAP intolerance. He was diagnosed with moderate GORDON on PSG 07/17/22 (scanned in [place]) which showed AHI of 26/hr, mean Sp02 [...] the mask on. 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 [...] has exercise induced asthma, treated with inhaler. Interval History: At our last visit, plan was to start saline rinses at bedtime and follow up with Flonase to treat nasal congestion which was felt to be contributing to his PAP interolance. He was enocuraged to restart CPAP. Download shows days of usage, averaging 2.5hr of daily use, with a residual AHI of 2.6/hr. He tried the full face mask, and eventually went back to the nasal pillows. He feels that the intolerance is in his head. Having tinnitus doesn't help. He did have a good night last night where he used the machine for 6 hours. He has been using nasal saline rinses and Flonase but continues to experience nasal congestion. He will has an appointment with ENT soon to be evaluated. BP is elevated today, he reports that his civilian doctor has increased his amlodipine from 5 to 10mg but he hasn't started the higher dose. Current sleep-wake cycle: Bedtime: 10-11pm Sleep latency: no more than 30 min # of awakenings/how lon-3x/night to urinate, SL very quick Rise time: 7-7:30am normally without an alarm Upon awakening: refreshed Estimated nocturnal sleep: 7-8hr Bedpartner: Sleep position: side, stomach Napping: no Drowsy driving: no Pertinent Social Hx: Caffeine: 2-3 cups of tea ETOH: on weekends Smoking: no Occupation: retired Marital Status: PMH: Sleep apnea (disorder) Backache (finding) Gastroesophageal reflux disease (disorder) Elevated blood pressure reading without diagnosis of hypertension (situation) Cataract (disorder) Hearing loss (disorder) Chronic maxillary sinusitis (disorder) Mood disorder (disorder) Allergic rhinitis (disorder) Tinnitus (finding) MEDS: FLUTICASONE/SALMETEROL (WIXELA) INHL,ORAL, NON-VA (Patient/Family Reported) ALBUTEROL INHALER INHL,ORAL, NON-VA (Patient/Family Reported) OMEPRAZOLE CAP,EC, NON-VA (Patient/Family Reported) AMLODIPINE BESYLATE TAB, NON-VA (Patient/Family Reported) ALLERGIES: NKDA PE: 204lb, BMI 31 162/99, 59, 98% GEN: well appearing, in NAD HEENT: NC/AT, neck supple, sclera anicteric, teeth intact but enamel worn down, tongue with central fissuring, Mallampati 2 NEURO: awake, alert, no focal deficits PSYCH: normal mood and affect PRIOR SLEEP STUDIES: PSG of 07/17/22 reviewed (scanned in [place]), study done in [facility] Impression: Moderate GORDON AHI: 25.6/hr, mean Sp02 94% with jean Sp02 of 80%,Sp02 < 90% 37.2 minutes TST: 444.5 minutes, SE: 86.56% PLMI: 12/hr BLAYNE GOMEZ 06/09/2024 - 07/08/2024 : 1955 Age: 69 years [facility] Compliance Report Compliance Payor [facility] Usage 06/09/2024 - 07/08/2024 Usage days 14/30 days (47%) >= 4 hours 1 days (3%) < 4 hours 13 days (43%) Usage hours 34 hours 15 minutes Average usage (total days) 1 hours 9 minutes Average usage (days used) 2 hours 27 minutes Median usage (days used) 2 hours 16 minutes Total used hours (value since last reset - 07/08/2024) 189 hours AirSense 11 AutoSet Serial number [id number] Mode AutoSet Min Pressure 5 cmH2O Max Pressure 20 cmH2O EPR Fulltime EPR level 3 Response Soft Therapy Pressure - cmH2O Median: 8.1 95th percentile: 10.9 Maximum: 11.6 Leaks - L/min Median: 0.0 95th percentile: 10.3 Maximum: 17.5 Events per hour AI: 1.8 HI: 0.8 AHI: 2.6 Apnea Index Central: 0.5 Obstructive: 1.3 Unknown: 0.0 RERA Index 0.6 Randolph-Caldera respiration (average duration per night) 0 minutes (0%) Impression: 69 year old with 1) Moderate [...] his current strategy of using Afrin only. Since our last visit, he has tried nasal saline rinses and Flonase but continues to experience nasal congestion. He is now awaiting an appointment with ENT. CPAP use is still suboptimal (with early removal of mask) but last night he did wear the mask for a full 6 hours. For now he will continue to try PAP and we have discussed acclimation strategies as well as the possibility of switching to auto-BPAP to achieve more experiatory pressure relief, which he may tolerate better. 2) Hypertension, 160s/90s, reportedly his civilian doctor has asked him to increase amlodipine from 5 to 10mg, which he hasn't done yet Plan: - encouraged increasing use of CPAP - discussed acclimation strategy and keeping mask on but removing hose only when going to the bathroom during the night - cont with nasal saline rinses - pending ENT evaluation for nasal congestion vs. obstruction - consider white noise machine for tinnitus - for BP control, advised patient to use CPAP consistently and also to increase the amlodipine as directed by his PCP - cont with MOVE program - may consider alternative treatments in the future including oral appliance therapy vs. trial of auto-BiPAP due to his pressure intolerance with exhalation RTC in 6 months. /ronnie/ CHALO MALLOY MD ATTENDING Signed: 08/02/2024 11:56 CHALO MALLOY [facility]
--- OUTSIDE RECORDS SUMMARY | 2024-08-30 08:07 | XMS_ITS | Encounter Summary ---
Author Name [facility] [place] [facility] [place] [facility] [place] Address [address] [place] [id number] Care Team Providers Care Wash Rack Operator Name Role Phone GUDELIA MERIDA Primary Care Provider Guido kearney Insurance Providers: All historical and current [...] PRESCRIPT ION RX Apr 13, 2022 THPRX [id number] [phone] PATRICIAROJELIO PATIENT [facility] PL[facility] -[facility] [place] CHNA Apr 13, 2017 [id number] PATRICIAROJELIO Uziel PATIENT [facility] PL[facility] [place] [facility] E Apr 13, 2017 [facility] [id number] [phone] PATRICIAROJELIO Uziel PATIENT Selected Encounter This section includes the information on record at [place] for the Encounter. Date/Time Encounter Type Encounter Description Reason Provider Source Jul 29, 2024 08:00 AM THERAPEUTIC EXERCISES PHYSICAL THERAPY ICD-10-CM M54.59 Other low back pain PIERRE LARES Shelly Encounter Template Text not used by [place] Assessments - Encounter Diagnoses This section includes the primary and secondary diagnoses documented for the Encounter. Date/Time Primary/Secondary Diagnosis Diagnosis Name Provider Source Jul 29, 2024 09:10 AM PRIMARY Other low back pain DESTINEE LARES [facility] Plan of Treatment: Future Appointments (+ 6 months) and Future Tests (+/- 45 days) The Plan of Treatment section includes future care activities for the patient from [facility] [place] [facility] This section includes future appointments and future orders which are active, pending or scheduled. Future Appointments This section includes appointments that were scheduled to occur 6 months from the date of the Encounter, up to a maximum of 20 appointments. The data comes from all [place] treatment facilities. Appointment Date/Time Appointment Type Appointme nt Facility Name Aug 02, 2024 08:30 AM [place]ORY [place] [facility] [place] [facility] Aug 02, 2024 08:31 AM AMBULATORY - MEDICINE [facility] Aug 04, 2024 09:00 AM AMBULATORY - NONE [facility] Aug 04, 2024 02:00 PM [place] [facility] [place] [facility] Aug 08, 2024 09:00 AM AMBULATORY - REHAB [facility] August 11, 2024 09:30 AM [place] [facility] [place] [facility] August 15, 2024 09:00 AM AMBULATORY - REHAB [facility] August 18, 2024 09:00 AM AMBULATORY - NONE [facility] August 18, 2024 02:00 PM [place] [facility] [place] [facility] August 29, 2024 09:00 AM [place] [facility] [place] [facility] August 29, 2024 11:30 AM [place] [facility] [place] [facility] August 30, 2024 08:15 AM AM[facility]UL[facility]ORY - NONE [facility] [place] [facility] September 06, 2024 02:00 PM AMBULATORY - MEDICINE [facility] [place] [facility] Active, Pending, and Scheduled Orders This section includes a listing of several types of active, pending, and scheduled orders, including clinic medications orders, diagnostic test orders, procedure orders and consult orders; where the start date of the order is 45 days before the date of the Encounter or 45 days after the date of theEncounter. The data comes from all [place] treatment [facility]. Test Date/Time Test Type Test Details Facility Name Jun 30, 2024 11:41 AM Consult Order OTOLARYNGO LOGY/ENT ONE Cons [facility] Jul 29, 2024 01:24 PM Consult Order COMMUNITY CARE-COLONOSCOPY DIAGNOSTIC Cons [facility] Lab Results: +/- 30 days of the encounter This section includes the Chemistry and Hematology Lab Results on record with [place] for the patient. Radiology Reports and Pathology Reports are provided separately, in subsequent sections. Lab Results This section contains the Chemistry/Hematology Results that were resulted 30 days before or 30 daysafter the date of the Encounter. Date/Time Source Result Type Result - Unit Interpretation Reference Range Specimen Type Comment Jul 24, 2024 12:00 AM [facility] OCCULT BLOOD FIT X1 SCREEN (MFP ONLY) FECES S pecimen Type: FECES No comment entered. Ordering Provider: GUDELIA MERIDA Report Released Date/Time: Jun 20, 2024 12:27 PM Reporting Lab: [facility] [address] [facility] [id number] Performing Lab: [address] [address] OCCULT BLOOD (FIT)#1 OF 1 POSITIVE HH NEG Encounter Notes: All associated encounter notes This section contains the clinical notes associated to the Encounter. Date/Time Encounter Note(s) Provider Source Jul 29, 2024 07:54 AM PHYSICAL THERAPY N OTE: [facility] TITLE: PHYSICAL THERAPY STANDARD TITLE: PHYSICAL THERAPY NOTE DATE OF NOTE: JUL 29, 2024@07:54 ENTRY DATE: JUL 29, 2024@07:54:35 AUTHOR: ROCKY LARES COSIGNER: URGENCY: STATUS: COMPLETED Initial Evaluation date: 06/24/24 Treatment #: eval+2 Treatment time: 23 min Diagnosis: Other low back pain (ICD-10-CM M54.59) (Primary) Provider: Sydney SUBJECTIVE: states that the TENS unit has been helpful. Ready to continue in PT. OBJECTIVE: Today's treatment: THERAPEUTIC EXERCISE: MINUTES: 30 Access Code: [email or web address] URL: [email or web address] Date: 07/29/2024 Prepared by: Rocky Lares Exercises - Nu step 5 min level 6 - Clamshell with Resistance - 1 x daily - 5 x weekly - 2 sets - 15-25 reps - Supine Bridge with Resistance Band - 1 x daily - 5 x weekly - 2 sets - 15-25 reps - Bridge with Heels on [place]er Ball - 1 x daily - 5 x weekly - 2 sets - 15-25 reps - Supine Lower Trunk Rotation - 1 x daily - 5 x weekly - 2 sets - 15-25 reps - Supine Piriformis Stretch with Foot on Ground - 1 x daily - 5 x weekly - 2 sets - 2 reps - 30 hold - Bird Dog - 1 x daily - 5 x weekly - 2 sets - 15-25 reps - Bird Dog with Resistance - 1 x daily - 5 x weekly - 2 sets - 15-25 reps - Side Plank on Knees - 1 x daily - 5 x weekly - 2 sets - 8 reps - 10 hold SELF CARE/EDUCATION: MINUTES: -- [place] was educated on the implementation of the home exercise routine. They were able to verbalize and comprehend the purpose of the movements and could perform the activities independently. ASSESSMENT: Tolerated treatment well without complications. PLAN: Cont. per MADELINE /ronnie/ ROCKY LARES DPKoko Physical Therapist Signed: 07/29/2024 09:11 ROCKY LARES WARD
--- OUTSIDE RECORDS SUMMARY | 2024-08-30 08:07 | XMS_ITS ---
Author Name [facility] [place] [facility] [place] [facility] [place] Address [address] [place] [address] Care Team Providers Care Cement Contractor Name Role Phone GUDELIA MERIDA Primary Care Provider Unavailabl christel Insurance Providers: All historical and current Section [...] PRESCRIPT ION RX Apr 13, 2022 THPRX [id number] [phone] PATRICIAROJELIO Triplett PATIENT [facility]AN Apr 13, 2017 [id number] [phone] ROJELIO GOMEZ PATIENT [facility] DILIA CHAN E Apr 13, 2017 [facility] [id number] [phone] ROJELIO GOMEZ PATIENT Selected Encounter This section includes the information on record at [place] for the Encounter. Date/Time Encounter Type Encounter Description Reason Provider Source August 18, 2024 02:00 PM MANUAL THERAPY 1/> [facility] RN INTAKE ICD-10-CM M54.59 Other low back pain IGNACIO HERZOG Encounter Template Text not used by [place] Assessments - Encounter Diagnoses This section includes the primary and secondary diagnoses documented for the Encounter. Date/Time Primary/Secondary Diagnosis Diagnosis Name Provider Source August 18, 2024 02:53 PM PRIMARY Other low back pain IGNACIO HERZOG [facility] Plan of Treatment: Future Appointments (+ 6 months) and Future Tests (+/- 45 days) The Plan of Treatment section includes future care activities for the patient from all [place] treatmentfacilities. This section includes future appointments and future orders which are active, pending or scheduled. Future Appointments This section includes appointments that were scheduled to occur 6 months from the date of the Encounter, up to a maximum of 20 appointments. The data comes from all [place] treatment facilities. Appointment Date/Time Appointment Type Appointme nt Facility Name August 29, 2024 09:00 AM [facility] August 29, 2024 11:30 AM [facility] August 30, 2024 08:15 AM AMBULATORY - NONE [facility] September 06, 2024 02:00 PM [facility] Jan 31, 2025 11:00 AM [facility] Jan 31, 2025 11:00 AM AMBULATORY - MEDICINE [facility] [place] [facility] Feb 01, 2025 09:00 AM AMBULATORY - REHAB MEDICIN E [facility] Active, Pending, and Scheduled Orders This section includes a listing of several types of active, pending, and scheduled orders, including clinic medications orders, diagnostic test orders, procedure orders and consult orders; where the start date of the order is 45 days before the date of the Encounter or 45 days after the date of theEncounter. The data comes from all [place] treatment facilities. Test Date/Time Test Type Test Details Facility Name Jul 29, 2024 01:24 PM Consult Order COMMUNITY CARE-COLONOSCOPY DIAGNOSTIC Cons [employer] [facility] Lab Results: +/- 30 days of the encounter This section includes the Chemistry and Hematology Lab Results on record with [place] for the patient. Radiology Reports and Pathology Reports are provided separately, in subsequent sections. Lab Results This section contains the Chemistry/Hematology Results that were resulted 30 days before or 30 daysafter the date of the Encounter. Date/Time Source Result Type Result - Unit Interpretation Reference Range Specimen Type Comment Jul 24, 2024 12:00 AM [facility] OCCULT BLOOD FIT X1 SCREEN (MFP ONLY) FECES S pecimen Type: FECES No comment entered. Ordering Provider: GUDELIA MERIDA Report Released Date/Time: Jun 20, 2024 12:27 PM Reporting Lab: [facility] [address] [facility] [id number] Performing Lab: [facility] [address] [facility] [id number] OCCULT BLOOD (FIT)#1 OF 1 POSITIVE HH NEG Social History: Smoking Status (Most current) and Tobacco Use (All prior to encounter date) This section includes the most current, and the historical, smoking and tobacco- related health factors from the [place] facility where the Encounter took place. Current Smoking Status This section includes the most current smoking, or tobacco-related health factor, from the [place] facility where the Encounter took place. Date/Time Current Smoking Status Comment Cari ity May 10, 2024 11:00 AM [place]-TOBACCO NEVER U SED CIGARETTES [facility] Tobacco Use History This section includes a history of the smoking, or tobacco-related health factors, that were collected on or before the date of the Encounter. The data comes from the [place] facility where the Encounter took place. Date/Time Smoking Status/Tobacco Use Comment F acility May 10, 2024 11:00 AM [place]-TOBACCO NEVER U SED OTHER TYPE [facility] Jun 06, 2023 12:22 PM [place]-TOBACCO NEVER USED [facility] Encounter Notes: All associated encounter notes This section contains the clinical notes associated to the Encounter. Date/Time Encounter Note(s) Provider Source August 18, 2024 02:00 PM CHIROPRACTIC NOTE: LOCAL TITLE: CHIROPRACTOR PROGRESS NOTE STANDARD TITLE: CHIROPRACTIC NOTE DATE OF NOTE: AUGUST 18, 2024@14:00 ENTRY DATE: AUGUST 18, 2024@14:00:40 AUTHOR: IGNACIO HERZOG EXP COSIGNER: URGENCY: STATUS: COMPLETED PATRICIABLAYNE RUGGIERO is a 69 WHITE MALE with prior history of COMBAT SERVICE INDICATED: No POS: PERIOD OF SERVICE - OTHER OR NONE SERVICE BRANCH: [employer] Service Connected Disabilities with % Eligibility: Active Problem HTN - Hypertension ([facility] [id number]) I 05/19/2024 FURCOLO,GUDELIA Sleep apnea G47.30 08/10/2023 FURCOLO,GUDELIA Backache M54.59 08/10/2023 FURCOLO,GUDELIA Gastroesophageal reflux disease K21 08/10/2023 FURCOLO,GUDELIA Cataract ([facility] [id number]) H26.9 06/23/2023 MISTY BURDICK Hearing loss H91.90 06/23/2023 MISTY BURDICK Chronic maxillary sinusitis J32.0 06/23/2023 MISTY BURDICK Mood disorder F39. 06/23/2023 MISTY BURDICK Past Surgeries: [place] teeth remonved hernia repairs in childhood Patient felt ok after last visit. It's always sore but yesterday it was very sore. He rates the pain yesterdsy 8,9 and today 10 Vet states that he bent to lift something which seems to be related to incr sx. MAY 19, 2024 Report: Study: AP, lateral and magnified lateral [...] visualized sacroiliac joints are normal for age. He denies radiation He describes the pain [...] not change sx. Started Physical Therapy at [facility] and the therapist is good. Patient received a TENS unit which provides temporary relief Vet called his former PCP, the DO, who moved out of state. Prior neonatal intensive care unit nurse: None Exercise/Activities: at gym Elliptical 30 minutes; [...] LUMBAR ROM limited and provocative into: flexion, extension, bilat Rotation. Peripheral Neuro-Muscular Exam Lower Extremity Gross motor 5/5 and sensory exam is intact without abnormality Patellar and Achilles Reflex 2+ Bilat No ankle clonus Lumbar Orthopedic testing: Valsalva Maneuver: Neg SLR/seated slump POS Kemps neg Sacral base push neg SI provocation testing POS Fabere's neg Direct S-I palpation POS Soft tissue palpation reveals hypertonicity and tenderness Left iliopsoas, left SI jt, PSIS, and Thoracolumbar [...] Supine gluteal stretching as per palpation objectives 08/18/24: Tenderness over L SI jt Restrictions lumbar, thoracic Arpit eval tried standing and prone - extension felt better than flexion Treatment: Corrective/Active FD mechanical lumbar traction with axial traction Manual therapy supine knee to chest stretch,Cross fiber massage over left SI jt. 8 min Treatment carried out today and well tolerated with relief expressed. The prognosis, at this time, is fair to good. Plan: Repeat traction if improvement; Add hip flexor stretch Short term goals include improvement in excess 25% on regional disability questionnaire and/or NRS over the first 3-4 treatment visits. It was explained to the patient that resolution of soft tissue complaintsthrough conservative management requires compliance with at home recommendations and avoidance of aggravating factors. Self-Care Recommendations: Cat Cow position with gentle motion. ~Patient encouraged to engage in activities such [...] core stability, balance, and pain modulation. Visit 5 F/U 4 weekly Seek urgent care as needed. CMT: chiropractic manipulative therapy F/D: Flexion Distraction MFR: Myofascial Release S-I: Sacroiliac MFTP: Myofascial Trigger Point NRS: Numeric Rating Scale /ronnie/ IGNACIO HERZOG D.C. CHIROPRACTOR Signed: 08/18/2024 14:53 IGNACIO HERZOG [facility]
--- OUTSIDE RECORDS SUMMARY | 2024-08-30 08:07 | XMS_ITS | Encounter Summary ---
Author Name [facility] [place] Organization [place] Address [address] [place] [address] Care Team Providers Care Licensed Life And Health Agent Name Role Phone GUDELIA MERIDA Primary Care [...] PRESCRIPT ION RX Apr 13, 2022 THPRX [id number] ROJELIO GOMEZ PATIENT [facility] Apr 13, 2017 [id number] [phone] ROJELIO GOMEZ PATIENT [facility]AN E Apr 13, 2017 [facility] [id number] [phone] ROJELIO GOMEZ PATIENT Selected Encounter This section includes the information on record at [place] for the Encounter. Date/Time Encounter Type Encounter Description Reason Provider Source August 29, 2024 11:30 AM OFFICE O/P EST MOD 30 MIN PRIMARY CARE/MEDICINE ICD-10-CM J45.21 Mild intermittent asthma with (acute) exacerbation MISTY BURDICK Shelly Encounter Template Text not used by [place] Assessments - Encounter Diagnoses This section includes the primary and secondary diagnoses documented for the Encounter. Date/Time Primary/Secondary Diagnosis Diagnosis Name Provider Source August 29, 2024 11:31 AM PRIMARY Mild intermittent asthma with (acute) exacerbation MISTY BURDICK [facility] Plan of Treatment: Future Appointments (+ 6 months) and Future Tests (+/- 45 days) The Plan of Treatment section includes future care activities for the patient from all [place] [facility] This section includes future appointments and future orders which are active, pending or scheduled. Future Appointments This section includes appointments that were scheduled to occur 6 months from the date of the Encounter, up to a maximum of 20 appointments. The data comes from all [place] treatment facilities. Appointment Date/Time Appointment Type Appointme nt Facility Name August 30, 2024 08:15 AM AMBULATORY - NONE [facility] September 06, 2024 02:00 PM [facility] Jan 31, 2025 11:00 AM [facility] Jan 31, 2025 11:00 AM [facility] Feb 01, 2025 09:00 AM AMBULATORY - REHAB MEDICIN E [facility] Active, Pending, and Scheduled Orders This section includes a listing of several types of active, pending, and scheduled orders, including clinic medications orders, diagnostic test orders, procedure orders and consult orders; where the start date of the order is 45 days before the date of the Encounter or 45 days after the date of theEncounter. The data comes from all [place] treatment facilities. Test Date/Time Test Type Test Details Facility Name Jul 29, 2024 01:24 PM Consult Order COMMUNITY CARE-COLONOSCOPY DIAGNOSTIC Cons Audit Tech's Choice [facility] Vital Signs: All taken on the encounter date This section contains inpatient and outpatient Vital Signs collected on the date of the Encounter. Date/Time Temperature Pulse Blood Pressure Respiratory Rate SP02 Pain Height Weight Body Mass Index Source August 29, 2024 10:43 AM 98.1 56 153/74 18 95 [facility] Social History: Smoking Status (Most current) and Tobacco Use (All prior to encounter date) This section includes the most current, and the historical, smoking and tobacco- related health factors from the [place] facility where the Encounter took place. Current Smoking Status This section includes the most current smoking, or tobacco-related health factor, from the [place] facility where the Encounter took place. Date/Time Current Smoking Status Comment Cari ity May 10, 2024 11:00 AM VA-TOBACCO NEVER U SED CIGARETTES [facility] Tobacco Use History This section includes a history of the smoking, or tobacco-related health factors, that were collected on or before the date of the Encounter. The data comes from the [place] facility where the Encounter took place. Date/Time Smoking Status/Tobacco Use Comment F acility May 10, 2024 11:00 AM VA-TOBACCO NEVER U SED OTHER TYPE [facility] Jun 06, 2023 12:22 PM VA-TOBACCO NEVER USED [facility] Encounter Notes: All associated encounter notes This section contains the clinical notes associated to the Encounter. Date/Time Encounter Note(s) Provider Source August 29, 2024 11:03 AM ACCOUNTING OF DISCLOSURES NOTE: LOCAL TITLE: [facility] PRESCRIPTION DRUG MONITORING PROGRAM STANDARD TITLE: ACCOUNTING OF DISCLOSURES NOTE DATE OF NOTE: AUGUST 29, 2024@11:03:11 ENTRY DATE: AUGUST 29, 2024@11:03:11 AUTHOR: MISTY BURDICK EXP COSIGNER: URGENCY: STATUS: COMPLETED This PDMP query was submitted by Misty Burdick. The clinical justification for this PDMP query is to review controlled substances prescribed outside of the [place], and any additional information that may become available, as an important component of standard clinical care, and in accordance with [facility] policy. Patient information was shared with the PDMP Appriss Traer. No prescription(s) for controlled substances outside the [place] were found in the last 90 days. /ronnie/ MISTY SHERMAN MS,ANTOLINC PHYSICIAN LAYUP WORKER Signed: 08/29/2024 11:03 MISTY BURDICK [facility] August 29, 2024 11:03 AM PHYSICIAN LAYUP WORKER NOTE: LOCAL TITLE: PA NOTE STANDARD TITLE: PHYSICIAN LAYUP WORKER NOTE DATE OF NOTE: AUGUST 29, 2024@11:03 ENTRY DATE: AUGUST 29, 2024@11:03:29 AUTHOR: MISTY BURDICK EXP COSIGNER: URGENCY: STATUS: COMPLETED SICK CALL VISIT HPI: 69-year-old male with below noted past medical history presents today for 5 to 7 days of increasing cough with wheezing and increased use of his albuterol up to every 4 hours when typically he does not require use for weeks. denies having any allergies. He does not smoke. He is not bringing up any colored sputum. He has no chest pain. He is having difficulty sleeping and has used NyQuil with some success. There is been no fever, malaise, myalgias or arthralgias. He does endorse having a night or 2 of night sweats but he thought that it may have been from a dream. He has not had any for the last few days. He is concerned regarding a pneumonia. REVIEW OF SYSTEMS: A 12 point review of systems is negative except as noted in the HPI. Active Medical Problems: Active Problem HTN - Hypertension ([facility] [id number]) I 05/19/2024 FURCOLO,GUDELIA Sleep apnea G47.30 08/10/2023 FURCOLO,GUDELIA Backache M54.59 08/10/2023 FURCOLO,GUDELIA Gastroesophageal reflux disease K21 08/10/2023 FURCOLO,GUDELIA Cataract ([facility] [id number]) H26.9 06/23/2023 MISTY BURDICK Hearing loss H91.90 06/23/2023 MISTY BURDICK Chronic maxillary sinusitis J32.0 06/23/2023 MISTY BURDICK Mood disorder F39. 06/23/2023 MISTY BURDICK AR - Allergic rhinitis J30.9 06/23/2023 MISTY BURDICK Tinnitus H93.19 06/23/2023 MISTY BURDICK Meds: Active Outpatient Medications (including Supplies): Non-VA ALBUTEROL 90MCG (CFC-F) 200D ORAL INHL 1 PUFF BY ACTIVE MOUTH TWICE DAILY NEEDED Non-VA AMLODIPINE BESYLATE 5MG TAB 5MG BY MOUTH ONCE DAILY ACTIVE Indication: FOR HIGH BLOOD PRESSURE Non-VA FLUTICAS 500/SALMETEROL 50 INHL DISK 60 1 PUFF BY ACTIVE MOUTH TWICE DAILY Non-VA OMEPRAZOLE 20MG EC CAP 20MG BY MOUTH EVERY MORNING ACTIVE 30 MINUTES BEFORE BREAKFAST Indication: FOR GASTROESOPHAGEAL REFLUX DISEASE Allergies: Patient has answered NKA Date Vital Measurement Qualifiers 08/29/2024 10:43 Temp F (C) 98.1 (36.7) Pulse 56 Respir 18 BP 153/74 POx (L/Min)(%) 95 At Rest FOCUSED EXAMINATION GEN: WD, non-toxic, speaking in full sentences HEENT: NC/AT OP: Patent with moist mucous membranes Neck: supple, No LAD Lungs: Fine bibasilar dry crackling clears with good cough. Scattered wheeze mostly expiratory COR: Regular rate and rhythm MDM: No clinical evidence of acute airway obstruction or compromise. No evidence of fluid consolidation on exam. Exam most consistent with mild intermittent asthma with acute exacerbation. MassPAT verified. Codeine/guaifenesin syrup as directed for cough with difficulty sleeping, Tessalon Perles as directed otherwise, AeroChamber to be used with his albuterol inhaler for improved delivery and prednisone as prescribed. Increase fluids. Follow-up with PCP. RTC as needed. ASSESSMENT/PLAN Asthma exacerbation As above On this date of the encounter, I spent 30 minutes on some or all of the following: chart review ,history, physical examination, treatment planning, education and counseling of the patient/family/urgent care nurse practitioner, placing orders, communicating with other health care providers and documentation in the electronic health record. able to verbalize understanding of plan of care and agrees. >> MEDICATIONS Reviewed and reconciled with /ronnie/ MISTY SHERMAN MS,PA-C PHYSICIAN LAYUP WORKER Signed: 08/29/2024 11:36 MISTY BURDICK [place] [facility]
--- OUTSIDE RECORDS SUMMARY | 2024-08-30 08:07 | XMS_ITS | Encounter Summary ---
Author Name [facility] [place] Address [address] [place] [address] Care Team Providers Care Advanced Manager Name Role Phone GUDELIA MERIDA Primary Care [...] PRESCRIPT ION RX Apr 13, 2022 THPRX [id number] [phone] ROJELIO GOMEZ PATIENT [facility] PLAN [facility] Apr 13, 2017 [id number] [phone] PATRICIAROJELIO Uziel PATIENT [facility] PLAN [facility] E Apr 13, 2017 [facility] [id number] [phone] ROJELIO GOMEZ Uziel PATIENT Selected Encounter This section includes the information on record at [place] for the Encounter. Date/Time Encounter Type Encounter Description Reason Provider Source Feb 15, 2024 08:00 AM SELF-MGMT EDUC & TRAIN 1 PT SLEEP MEDICINE ICD-10-CM G47.30 Sleep apnea, unspecified HONEY WEAVER Encounter Template Text not used by [place] Assessments - Encounter Diagnoses This section includes the primary and secondary diagnoses documented for the Encounter. Date/Time Primary/Secondary Diagnosis Diagnosis Name Provider Source Feb 15, 2024 08:45 AM PRIMARY Sleep apnea, unspecified HONEY WEAVER [place] Plan of Treatment: Future Appointments (+ 6 months) and Future Tests (+/- 45 days) The Plan of Treatment section includes future care activities for the patient [facility] all [place] [facility]. This section includes future appointments and future orders which are active, pending or scheduled. Future Appointments This section includes appointments that were scheduled to occur 6 months from the date of the Encounter, up to a maximum of 20 appointments. The data comes from all [place] treatment facilities. Appointment Date/Time Appointment Type Appointme nt Facility Name Mar 22, 2024 03:00 PM AMBULATORY [place]ICINE [facility] [place] [facility] May 05, 2024 01:00 PM AMBULATORY - MEDICINE [facility] [facility] May 10, 2024 09:00 AM AMBULATORY - MEDICINE [place] [facility] [facility] May 10, 2024 10:00 AM AMBULATORY - MEDICINE [place] [facility] [facility] [facility] May 10, 2024 10:01 AM AMBULATORY - MEDICINE [facility] [place] [facility] May 10, 2024 11:00 AM AMBULATORY - MEDICINE [place] [facility] May 19, 2024 10:30 AM AMBULATORY - MEDICINE [facility] [place] [facility] Jun 03, 2024 08:30 AM AMBULATORY - MEDICINE [facility] [facility] Jun 24, 2024 08:30 AM AMBULATORY - [facility] Jun 27, 2024 09:00 AM AMBULATORY - MEDICINE [place] [facility] Jun 30, 2024 09:00 AM AMBULATORY - NONE [facility] Jun 30, 2024 11:00 AM AMBULATORY - MEDICINE [place] [facility] [facility] Jul 04, 2024 09:00 [facility] Jul 07, 2024 09:00 AM AM[facility]ORY - NONE [facility] Jul 25, 2024 09:00 AM AMBULATORY - MEDICINE [facility] [place] [facility] Jul 25, 2024 10:00 AM AMBULATORY - MEDICINE [place] [facility] [place] [facility] Jul 28, 2024 09:00 AM AMBULATORY - NONE [facility] Jul 29, 2024 08:00 AM AMBULATORY - REHAB MEDICIN E [place] Aug 02, 2024 08:30 AM AMBULATORY - MEDICINE [facility] Aug 02, 2024 08:31 AM AMBULATORY - MEDICINE [facility] Encounter Notes: All associated encounter notes This section contains the clinical notes associated to the Encounter. Date/Time Encounter Note(s) Provider Source Feb 15, 2024 08:39 AM SLEEP MEDICINE NOT E: LOCAL TITLE: CPAP CLINIC NOTE STANDARD TITLE: SLEEP MEDICINE NOTE DATE OF NOTE: FEB 15, 2024@08:39 ENTRY DATE: FEB 15, 2024@08:39:37 AUTHOR: HONEY WEAVER COSIGNER: URGENCY: STATUS: COMPLETED diagnosed with sleep apnea was seen in clinic FTF after CPAP set up. [place] is still struggling with mask fit and overall aversion to using CPAP. He was started with N30-i mask and it slides on his face. Options were discussed and chose F30-i mask medium cushion. He states he will try it. He also is agreeable to meet with [facility] sleep specialist to discuss, sleep apnea, CPAP and alternatives to CPAP. [place] is not tired, has good energy and focus. He questions his need for CPAP. was reminded that consistent use > 4 hours a night yield the best benefit. was also cautioned regarding the dangers of untreated apnea. was reminded of cleaning and re-supply schedule. had no other questions at this time. will be followed as needed and encouraged to reach out with any issues. [facility] Compliance Report Usage 10/19/2023 - 01/25/2024 Usage days 55/99 days (56%) >= 4 hours 13 days (13%) < 4 hours 42 days (42%) Usage hours 154 hours 49 minutes Average usage (total days) 1 hours 34 minutes Average usage (days used) 2 hours 49 minutes Median usage (days used) 2 hours 21 minutes Total used hours (value since last reset - 01/25/2024) 154 hours AirSense 11 AutoSet Serial number [id number] Mode AutoSet Min Pressure 5 cmH2O Max Pressure 20 cmH2O EPR Fulltime EPR level 3 Response Soft Therapy Pressure - cmH2O Median: 7.9 95th percentile: 10.0 Maximum: 10.6 Leaks - L/min Median: 2.5 95th percentile: 19.6 Maximum: 29.4 Events per hour AI: 2.8 HI: 1.0 AHI: 3.8 Apnea Index Central: 1.0 Obstructive: 1.7 Unknown: 0.1 RERA Index 0.4 Randolph-Caldera respiration (average duration per night) 0 minutes (0%) /ronnie/ HONEY WEAVER RESPIRATORY THERAPIST Signed: 02/15/2024 08:45 HONEY WEAVER [place]
--- OUTSIDE RECORDS SUMMARY | 2024-08-30 08:07 | XMS_ITS | Patient Health Record ---
Author Organization [facility] Address [address] [place] [address] Care Team Providers Care Crab Picker Name Role Phone Aba Honeycutt Primary Care Provider GENARO Barnard Unavailable [phone] Allergies No Known Allergies Reason For Referral No Information Medications Medication SIG (Take, Route, Frequency, Duration) Notes Start Date End Date Status Omeprazole 20 MG 1 capsule 30 minutes before morning meal Orally Once a day Active Advair Diskus 250-50 MCG/ACT 1 puff Inhalation Twice a day Active Sildenafil Citrate 100 MG 1 tablet as needed Orally Once a day Not-Taking ProAir HFA Not-Takin g Clotrimazole-Betamethaso ne 1-0.05 % 1 application Externally Twice a day for 90 days 01/29/2024 Active Clotrimazole-Betamethaso ne 1-0.05 % 1 application Externally Twice a day for 28 days 10/30/2022 Not-Taki ng Problems Problem Type SNOMED Code ICD Code Onset Dates Problem Status W/U Status Risk Notes Problem Hallux valgus of right foot (1976627755) Hallux valgus of right foot (M20.11) Active confirmed Problem Hallux valgus of left foot (1670025775) Hallux valgus of left foot (M20.12) Active confirmed Problem Left metatarsus adductus (disorder) (82092370397985246 ) 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 Problem Right metatarsus adductus (disorder) (25600497833342099 ) 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 Problem Localized, primary osteoarthritis of the ankle and/or foot (835089490) 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) Active confirmed Problem Localized, primary osteoarthritis of the ankle and/or foot (758964471) 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) Active confirmed Problem Localized, primary osteoarthritis of the ankle and/or foot (728123399) 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) Active confirmed Problem Localized, primary osteoarthritis of the ankle and/or foot (729465911) 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) Active confirmed Vital Signs Height 5ft 8in in 04/18/2024 Weight 198 lbs 04/18/2024 BMI 30.1 kg/m2 04/18/2024 Procedures Procedure Date Ordered Date Performed Result Body Sit e DRAIN/INJECT, SMALL JOINT/BURSA 01/28/2024 N/A DRAIN/INJECT, SMALL JOINT/BURSA 04/18/2024 N/A Encounters Encounter Location Date Provider Diagnosis [facility] [address] [address] 01/28/2024 GENARO JILLIAN Arthritis of right midfoot M19.071 ; Arthritis of left midfoot M19.072 ; Pain in right foot M79.671 ; Pain in left foot M79.672 and Pruritic dermatitis L30.8 [facility] [address] [address] 04/18/2024 GENARO JILLIAN Arthritis of right midfoot M19.071 ; Arthritis [...] any questions or concerns. 04/18/2024 Arthritis of right midfoot (ICD-10 - [...] of left midfoot (ICD-10 - M19.072) 01/28/2024 Arthritis of left midfoot (ICD-10 - M19.072) 01/28/2024 Pain in right foot (ICD-10 - M79.671) 04/18/2024 Pain in right foot (ICD-10 - M79.671) 04/18/2024 Pain in left foot (ICD-10 - M79.672) 01/28/2024 Pain in left foot (ICD-10 - M79.672) 01/28/2024 Pruritic dermatitis (ICD-10 - L30.8) Plan Of Treatment Pending Test Test Name Order Date DRAIN/INJECT, SMALL JOINT/BURSA 09/04/19 23 DRAIN/INJECT, SMALL JOINT/BURSA 10/31/19 23 DRAIN/INJECT, SMALL JOINT/BURSA 06/02/19 24 DRAIN/INJECT, SMALL JOINT/BURSA 01/28/20 24 DRAIN/INJECT, SMALL JOINT/BURSA 04/18/19 25 Insurance Providers Payer Name Payer Address Payer Phone Subscriber Number Group Number Insured Name Patient Relationship to Insured Coverage Start Date Coverage End Date [facility] [address] [place] [phone] [id number] Clinton Kuo Self - patient is the insured Medications Administered Medication Instructions Date of Administration Dosage Notes Dexamethasone 09/03/2022 8 mg Dexamethasone 10/30/2022 4 mg dexAMETHasone Sod Phosphate PF 06/02/2023 8 mg dexAMETHasone Sod Phosphate PF 01/28/2024 4 mg dexAMETHasone Sod Phosphate PF 04/18/2024 4 mg Kenalog 10/30/2022 10 mg Kenalog 01/28/2024 10 mg Kenalog 04/18/2024 10 mg Medical (General) History Medical History History ICD Code actinic keratosis chronic low back pain chronic neck pain chronic reflux esophagitis CKD (chronic kidney disease) stage 3 erectile dysfunction moderate persistent asthma nocturia overweight (BMI 25.0-29.9) bilateral foot pain COVID vaccinated X2 (Moderna) and no awan sters + COVID 04/2019 Surgical History Surgery Date(Month/Year) right inguinal hernia repair left inguinal hernia repair wisdom teeth extraction (4) Hospitalization History Reason Date(Month/Year) left inguinal hernia repair right inguinal hernia repair
--- OUTSIDE RECORDS SUMMARY | 2024-08-30 08:07 | XMS_ITS | Encounter Summary ---
Author Name Department of Vetera Affairs ([place]) Organization [place] Address [address] [place] [address] Care Team Providers Care Strip Deburrer Name Role Phone GUDELIA MERIDA Primary Care [...] PRESCRIPT ION RX Apr 13, 2022 THPRX [id number] [phone] ROJELIO GOMEZ PATIENT [facility] HEALTH PLAN [facility] USP -BRIG HTON CHAN Apr 13, 2017 [id number] [phone] ROJELIO GOMEZ PATIENT [facility] HEALTH PLAN BRIGH TON CHAN E Apr 13, 2017 [phone] ROJELIO GOMEZ PATIENT Selected Encounter This section includes the information on record at [place] for the Encounter. 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 Date/Time Primary/Secondary Diagnosis Diagnosis Name Provider Source August 11, 2024 09:51 AM PRIMARY Other low back pain IGNACIO HERZOG [facility] Plan of Treatment: Future Appointments (+ 6 months) and Future Tests (+/- 45 days) The Plan of Treatment section includes future care activities for the patient from all [place] [facility]. This section includes future appointments and future orders which are active, pending or scheduled. Future Appointments This section includes appointments that were scheduled to occur 6 months from the date of the Encounter, up to a maximum of 20 appointments. The data comes from all [place] treatment [facility]. Appointment Date/Time Appointment Type Appointme nt Facility Name August 15, 2024 09:00 AM AMBULATORY - REHAB MEDICIN E [facility] August 18, 2024 09:00 AM AMBULATORY - NONE [facility] August 18, 2024 02:00 PM AMBULATORY - MEDICINE [facility] [place] [facility] August 29, 2024 09:00 AM AMBULATORY - MEDICINE [facility] [place] [facility] August 29, 2024 11:30 AM AMBULATORY - MEDICINE [facility] [facility] August 30, 2024 08:15 AM AMBULATORY - NONE [place] [facility] September 06, 2024 02:00 PM AMBULATORY - MEDICINE [facility] [place] [facility] Jan 31, 2025 11:00 AM AMBULATORY - MEDICINE [facility] [facility] Jan 31, 2025 11:00 AM AMBULATORY - MEDICINE [facility] [place] [facility] Feb 01, 2025 09:00 AM AMBULATORY - [facility] Active, Pending, and Scheduled Orders This section includes a listing of several types of active, pending, and scheduled orders, including clinic medications orders, diagnostic test orders, procedure orders and consult orders; where the start date of the order is 45 days before the date of the Encounter or 45 days after the date of theEncounter. The data comes from all [facility]. Test Date/Time Test Type Test Details Facility Name Jun 30, 2024 11:41 AM Consult Order OTOLARYNGO LOGY/ENT ONE Cons Control Analyst's Choice [facility] Jul 29, 2024 01:24 PM Consult Order COMMUNITY CARE-COLONOSCOPY DIAGNOSTIC Cons Control Analyst's Choice [facility] Lab Results: +/- 30 days of the encounter This section includes the Chemistry and Hematology Lab Results on record with [place] for the patient. Radiology Reports and Pathology Reports are provided separately, in subsequent sections. Lab Results This section contains the Chemistry/Hematology Results that were resulted 30 days before or 30 daysafter the date of the Encounter. Date/Time Source Result Type Result - Unit Interpretation Reference Range Specimen Type Comment Jul 24, 2024 12:00 AM [facility] OCCULT BLOOD FIT X1 SCREEN (MFP ONLY) FECES S pecimen Type: FECES No comment entered. Ordering Provider: GUDELIA MERIDA Report Released Date/Time: Jun 20, 2024 12:27 PM Reporting Lab: [address] [id number] Performing Lab: [address] [id number] OCCULT BLOOD (FIT)#1 OF 1 POSITIVE HH NEG Social History: Smoking Status (Most current) and Tobacco Use (All prior to encounter date) This section includes the most current, and the historical, smoking and tobacco- related health factors from the [place] facility where the Encounter took place. Current Smoking Status This section includes the most current smoking, or tobacco-related health factor, from the [place] facility where the Encounter took place. Date/Time Current Smoking Status Comment Cari ity May 10, 2024 11:00 AM VA-TOBACCO NEVER U SED CIGARETTES [facility] Tobacco Use History This section includes a history of the smoking, or tobacco-related health factors, that were collected on or before the date of the Encounter. The data comes from the [place] facility where the Encounter took place. Date/Time Smoking Status/Tobacco Use Comment F acility May 10, 2024 11:00 AM [place]-TOBACCO NEVER U SED OTHER TYPE [facility] Jun 06, 2023 12:22 PM VA-TOBACCO NEVER USED [facility] Encounter Notes: All associated encounter notes This section contains the clinical notes associated to the Encounter. 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 06/23/2023 MISTY BURDICK Past Surgeries: [place] teeth remonved hernia repairs in childhood Patient felt ok after last visit. It's always sore but yesterday it was very sore. He rates the pain yesterdsy 8,9 and today 5/10 Vet states that he bent to lift something which seems to be related to incr sx. He denies radiation He describes the pain [...] not change sx. Started Physical Therapy at [facility] and the therapist is good. Patient received a TENS unit which provides temporary relief Vet called his former PCP, the DO, who moved out of state. Prior child care leader: None Exercise/Activities: at gym Elliptical 30 minutes; [...] Supine gluteal stretching as per palpation objectives 08/11/24: Tenderness over SI jts L>R; hypertonic L/S mm Restrictions lumbar, thoracic Treatment: Corrective/Active Shock wave lumbar 8 min CMT lumbar side posture CMT lower thoracic, seated Treatment carried out today and well tolerated with relief expressed. The prognosis, at this time, is fair to good. Plan: Hold until next visit due to incr pain; perform Arpit; Add hip flexor stretch Short [...] core stability, balance, and pain modulation. Visit 4 F/U 4 weekly Seek urgent care as needed. CMT: chiropractic manipulative therapy F/D: Flexion Distraction MFR: Myofascial Release S-I: Sacroiliac MFTP: Myofascial Trigger Point NRS: Numeric Rating Scale /ronnie/ IGNACIO HERZOG D.C. CHIROPRACTOR Signed: 08/11/2024 09:52 IGNACIO HERZOG CNTRL [facility]
--- OUTSIDE RECORDS SUMMARY | 2024-08-30 08:07 | XMS_ITS | Encounter Summary ---
Author Name [place] Address [address] [place] [address] Care Team Providers Care Buffer Copper Name Role Phone GUDELIA MERIDA Primary Care [...] PRESCRIPT ION RX Apr 13, 2022 THPRX [id number] [phone] PATRICIAROJELIO Uziel PATIENT [facility] PLAN [facility] USP -BR VIDAL CHAN Apr 13, 2017 [id number] [phone] PATRICIAROJELIO Uziel PATIENT [facility] HE[facility] PLAN BRIGH DILIA CHAN E Apr 13, 2017 [id number] [phone] ROJEILO GOMEZ PATIENT Selected Encounter This section includes the information on record at [place] for the Encounter. Date/Time Encounter Type Encounter Description Reason Pro vider Source Aug 01, 2024 05:07 PM Outpatient Encounter SLEEP MEDICINE IHE Encounter Template Text not used by VA Plan of Treatment: Future Appointments (+ 6 months) and Future Tests (+/- 45 days) The Plan of Treatment section includes future care activities for the patient from all VA treatmentfacilities. This section includes future appointments and future orders which are active, pending or scheduled. Future Appointments This section includes appointments that were scheduled to occur 6 months from the date of the Encounter, up to a maximum of 20 appointments. The data comes from all [place] treatment [facility]. Appointment Date/Time Appointment Type Appointme nt Facility Name Aug 02, 2024 08:30 AM AMBULATORY - MEDICINE [place] [facility] Aug 02, 2024 08:31 AM AMBULATORY - MEDICINE [place] [facility] Aug 04, 2024 09:00 AM AMBULATORY - NONE [facility] Aug 04, 2024 02:00 PM AMBULATORY - MEDICINE [place] [facility] Aug 08, 2024 09:00 AM AMBULATORY - REHAB [facility] August 11, 2024 09:30 AM AMBULATORY - MEDICINE [place] [facility] August 15, 2024 09:00 AM AMBULATORY - REHAB [facility] August 18, 2024 09:00 AM AMBULATORY - NONE [facility] [facility] August 18, 2024 02:00 PM AMBULATORY - MEDICINE [place] [facility] August 29, 2024 09:00 AM AMBULATORY - MEDICINE [place] [facility] August 29, 2024 11:30 AM AMBULATORY - MEDICINE [place] [facility] August 30, 2024 08:15 AM AMBULATORY - NONE [place] [facility] September 06, 2024 02:00 PM AMBULATORY - MEDICINE [place] [facility] Jan 31, 2025 11:00 AM AMBULATORY - MEDICINE [place] [facility] Jan 31, 2025 11:00 AM AMBULATORY - MEDICINE [facility] [place] [facility] Active, Pending, and Scheduled Orders [...] The data comes from all [place] treatment [facility]. Test Date/Time Test Type Test Details Facility Name Jun 30, 2024 11:41 AM Consult Order OTOLARYNGO LOGY/ENT ONE Cons Green Marketing Specialist's Choice [facility] Jul 29, 2024 01:24 PM Consult Order COMMUNITY CARE-COLONOSCOPY DIAGNOSTIC Cons Green Marketing Specialist's Choice [facility] Lab Results: +/- 30 days [...] Type Comment Jul 24, 2024 12:00 AM [facility] OCCULT BLOOD FIT X1 SCREEN (MFP ONLY) FECES S pecimen Type: FECES No comment entered. Ordering Provider: GUDELIA MERIDA Report Released Date/Time: Jun 20, 2024 12:27 PM Reporting Lab: [facility] [address] [facility] [id number] Performing Lab: [facility] [address] [id number] OCCULT BLOOD (FIT)#1 OF 1 POSITIVE HH NEG
--- OUTSIDE RECORDS SUMMARY | 2024-08-30 08:07 | XMS_ITS | Encounter Summary ---
Author Name Department [place] Organization [place] Address [address] [place] [address] Care Team Providers Care Offset Platemaker Name Role Phone GUDELIA MERIDA Primary Care [...] PRESCRIPT ION RX Apr 13, 2022 THPRX [id number] [phone] ROJELIO GOMEZ PATIENT [facility] PLAN [facility] -[facility] SEVERIANOON CHAN Apr 13, 2017 [id number] [phone] ROJELIO GOMEZ PATIENT [facility] HEALTH PLAN [facility] BRIGH TON CHAN E Apr 13, 2017 [facility] [phone] ROJELIO GOMEZ PATIENT Selected Encounter This section includes the information on record at [place] for the Encounter. Date/Time Encounter Type Encounter Description Reason Pro vider Source IHE Encounter Template Text not used by [place]
--- OUTSIDE RECORDS SUMMARY | 2024-08-30 08:07 | XMS_ITS ---
Author Name Department [place] Organization [place] Address [address] [place] [address] Care Team Providers Care Claim Analyst Name Role Phone GUDELIA MERIDA Primary Care [...] PRESCRIPT ION RX Apr 13, 2022 THPRX [id number] [phone] ROJELIO GOMEZ PATIENT [facility] PLAN [facility] -BR HTON CHAN Apr 13, 2017 [id number] [phone] ROJELIO GOMEZ PATIENT [facility] PLAN BRIGH TON CHAN E Apr 13, 2017 [facility] [phone] ROJELIO GOMEZ PATIENT Selected Encounter This section includes the information on record at [place] for the Encounter. 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 Date/Time Primary/Secondary Diagnosis Diagnosis Name Provider Source August 29, 2024 10:38 AM PRIMARY Other low back pain IGNACIO HERZOG [facility] Plan of Treatment: Future Appointments (+ 6 months) and Future Tests (+/- 45 days) The Plan of Treatment section includes future care activities for the patient from all [place] [facility]. This section includes future appointments and future [...] 30, 2024 08:15 AM AM[facility]ULATORY - NONE [facility] September 06, 2024 02:00 PM AM[facility]UL[facility] - [facility] [place] [facility] Jan 31, 2025 11:00 AM AMBULATORY - [facility] Jan 31, 2025 11:00 AM AMBULATORY - MEDICINE [facility] [place] [facility] Feb 01, 2025 09:00 AM AMBULATORY - REHAB MEDICIN E [facility] Active, Pending, and Scheduled Orders This section includes a listing of several types of active, pending, and scheduled orders, including clinic medications orders, diagnostic test orders, procedure orders and consult orders; where the start date of the order is 45 days before the date of the Encounter or 45 days after the date of theEncounter. The data comes from all [facility]. Test Date/Time Test Type Test Details Facility Name Jul 29, 2024 01:24 PM Consult Order COMMUNITY CARE-COLONOSCOPY DIAGNOSTIC Cons Iron Worker's Choice [facility] Vital Signs: All taken on the encounter date This section contains inpatient and outpatient Vital Signs collected on the date of the Encounter. Date/Time Temperature Pulse Blood Pressure Respiratory Rate SP02 Pain Height Weight Body Mass Index Source August 29, 2024 10:43 AM 98.1 56 153/74 18 95 [facility] Social History: Smoking Status (Most current) and Tobacco Use (All prior to encounter date) This section includes the most current, and the historical, smoking and tobacco- related health factors from the [place] facility where the Encounter took place. Current Smoking Status This section includes the most current smoking, or tobacco-related health factor, from the [place] facility where the Encounter took place. Date/Time Current Smoking Status Comment Cari ity May 10, 2024 11:00 AM VA-TOBACCO NEVER U SED CIGARETTES [facility] Tobacco Use History This section includes a history of the smoking, or tobacco-related health factors, that were collected on or before the date of the Encounter. The data comes from the [place] facility where the Encounter took place. Date/Time Smoking Status/Tobacco Use Comment F acility May 10, 2024 11:00 AM VA-TOBACCO NEVER U SED OTHER TYPE [place]TR [place] [facility] Jun 06, 2023 12:22 PM VA-TOBACCO NEVER USED [facility] Encounter Notes: All associated encounter notes This section contains the clinical notes associated to the Encounter. 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 06/23/2023 MISTY BURDICK Past Surgeries: [place] teeth remonved hernia repairs in childhood Patient felt ok after last visit. He states that the sx have not changed. MAY 19, 2024 Report: Study: AP, lateral [...] not change sx. Started Physical Therapy at [facility] and the therapist is good. Patient received a TENS unit which provides temporary relief Vet called his former PCP, the DO, who moved out of state. 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 The prognosis, at this time, is fair to good. Plan: Home hip flexor stretch . Suggested PT which he declined Short term goals include improvement in excess [...] core stability, balance, and pain modulation. Visit 6 F/U Vet is going out of town and will call for appt. Seek urgent care as needed. CMT: chiropractic manipulative therapy F/D: Flexion Distraction MFR: Myofascial Release S-I: Sacroiliac MFTP: Myofascial Trigger Point NRS: Numeric Rating Scale /ronnie/ IGNACIO HERZOG D.C. CHIROPRACTOR Signed: 08/29/2024 10:38 IGNACIO HERZOG JENRHarry [facility]
--- OUTSIDE RECORDS SUMMARY | 2024-08-30 08:07 | XMS_ITS ---
Author Name [facility] [facility] [place] Address [address] [place] [address] Care Team Providers Care Lithopone Charger Name Role Phone GUDELIA MERIDA Primary Care [...] PRESCRIPT ION RX Apr 13, 2022 THPRX [id number] [phone] ROJELIO GOMEZ PATIENT [facility] Apr 13, 2017 [id number] [phone] ROJELIO GOMEZ PATIENT [facility] PLAN BRIGH TON CHAN E Apr 13, 2017 [facility] [id number] [phone] ROJELIO GOMEZ PATIENT Selected Encounter This section includes the information on record at [place] for the Encounter. Date/Time Encounter Type Encounter Description Reason Provider Source Jun 30, 2024 11:00 AM OFFICE O/P [place] 60 MIN PM&RS PHYSICIAN ICD-10-CM M43.06 Spondylolysis , lumbar region RAISSA GUTIÉRREZ IHE Encounter Template Text not used by [facility] Assessments - Encounter Diagnoses This section includes the primary and secondary diagnoses documented for the Encounter. Date/Time Primary/Secondary Diagnosis Diagnosis Name Provider Source August 12, 2024 02:18 PM PRIMARY Spondylolysis, lumbar region SAMMY GUTIÉRREZ [place] [facility] [place] [facility] August 12, 2024 02:18 PM SECONDARY Nasal congestion SAMMY GUTIÉRREZ [place] [facility] [place] [facility] August 12, 2024 02:18 PM SECONDARY Obstructive sleep apnea (adult) (pediatric) SAMMY GUTIÉRREZ [place] [facility] [place] [facility] August 12, 2024 02:18 PM SECONDARY Other intvrt disc degen, lum rgn with discog back pain only SAMMY GUTIÉRREZ [place] [facility] [place] [facility] August 12, 2024 02:18 PM SECONDARY Spondylolisthesis , site unspecified SAMMY [facility]UTI[facility]RREZ [facility] Plan of Treatment: Future Appointments (+ 6 months) and Future Tests (+/- 45 days) The Plan of Treatment section includes future care activities for the patient from [facility] [place] [facility] This section includes future appointments and future orders which are active, pending or scheduled. Future Appointments This section includes appointments that were scheduled to occur 6 months from the date of the Encounter, up to a maximum of 20 appointments. The data comes from all [place] treatment facilities. Appointment Date/Time Appointment Type Appointme nt Facility Name Jul 04, 2024 09:00 AM AMBULATORY - REHAB [facility] Jul 07, 2024 09:00 AM AMBULATORY - NONE [facility] Jul 25, 2024 09:00 AM AMBULATORY - MEDICINE [place] [facility] [place] [facility] Jul 25, 2024 10:00 AM AMBULATORY - MEDICINE [place] [facility] [place] [facility] Jul 28, 2024 09:00 AM AMBULATORY - NONE [facility] Jul 29, 2024 08:00 AM AMBULATORY - REHAB [facility] Aug 02, 2024 08:30 AM AMBULATORY - MEDICINE [place] [facility] [place] [facility] Aug 02, 2024 08:31 AM AM[facility]ULATORY - [facility]ICINE [facility] Aug 04, 2024 09:00 AM AMBULATORY - NONE [facility] Aug 04, 2024 02:00 PM AMBULATORY - MEDICINE [place] [facility] [place] [facility] Aug 08, 2024 09:00 AM AMBULATORY - REHAB MEDICIN [facility] August 11, 2024 09:30 AM AMBULATORY - MEDICINE [place] [facility] [place] [facility] August 15, 2024 09:00 AM AM[facility]UL[facility]ORY [facility] August 18, 2024 09:00 AM AM[facility]ATORY - NONE [facility] August 18, 2024 02:00 PM AMBULATORY - MEDICINE [place] [facility] [place] [facility] August 29, 2024 09:00 AM AMBULATORY - MEDICINE [place] [facility] [place] [facility] August 29, 2024 11:30 AM AMBULATORY - MEDICINE [place] [facility] [place] [facility] August 30, 2024 08:15 AM AMBULATORY - NONE [facility] [place] [facility] September 06, 2024 02:00 PM AM[facility]ULATORY - [facility] Active, Pending, and Scheduled Orders This section includes a listing of several types of active, pending, and scheduled orders, including clinic medications orders, diagnostic test orders, procedure orders and consult orders; where the start date of the order is 45 days before the date of the Encounter or 45 days after the date of theEncounter. The data comes from all [place] treatment facilities. Test Date/Time Test Type Test Details Facility Name Jun 30, 2024 11:41 AM Consult Order OTOLARYNGO LOGY/ENT ONE Cons Relief Docking Master's Choice [facility] [place] [facility] Jul 29, 2024 01:24 PM Consult Order COMMUNITY CARE-COLONOSCOPY DIAGNOSTIC Cons Relief Docking Master's Choice [facility] Lab Results: +/- 30 days of the encounter This section includes the Chemistry and Hematology Lab Results on record with [place] for the patient. Radiology Reports and Pathology Reports are provided separately, in subsequent sections. Lab Results This section contains the Chemistry/Hematology Results that were resulted 30 days before or 30 daysafter the date of the Encounter. Date/Time Source Result Type Result - Unit Interpretation Reference Range Specimen Type Comment Jul 24, 2024 12:00 AM [facility] OCCULT BLOOD FIT X1 SCREEN (MFP ONLY) FECES S pecimen Type: FECES No comment entered. Ordering Provider: GUDELIA MERIDA Report Released Date/Time: Jun 20, 2024 12:27 PM Reporting Lab: [facility] [address] [facility] [id number] Performing Lab: [facility] [address] [facility] [id number] OCCULT BLOOD (FIT)#1 OF 1 POSITIVE HH NEG Vital Signs: All taken on the encounter date This section contains inpatient and outpatient Vital Signs collected on the date of the Encounter. Date/Time Temperature Pulse Blood Pressure Respiratory Rate SP02 Pain Height Weight Body Mass Index Source Jun 30, 2024 11:04 AM 97.7 64 141/75 16 97 3 [facility] Social History: Smoking Status (Most current) and Tobacco Use (All prior to encounter date) This section includes the most current, and the historical, smoking and tobacco- related health factors from the [place] facility where the Encounter took place. Current Smoking Status This section includes the most current smoking, or tobacco-related health factor, from the [place] facility where the Encounter took place. Date/Time Current Smoking Status Comment Cari benton May 10, 2024 11:00 AM VA-TOBACCO NEVER U SED CIGARETTES [facility] Tobacco Use History This section includes a history of the smoking, or tobacco-related health factors, that were collected on or before the date of the Encounter. The data comes from the [place] facility where the Encounter took place. Date/Time Smoking Status/Tobacco Use Comment F reyes May 10, 2024 11:00 AM VA-TOBACCO NEVER U SED OTHER TYPE [facility] Jun 06, 2023 12:22 PM VA-TOBACCO NEVER USED [facility] Encounter Notes: All associated encounter notes This section contains the clinical notes associated to the Encounter. Date/Time Encounter Note(s) Provider Source Jun 30, 2024 11:59 AM PHYSICAL MEDICINE REHAB CONSULT: LOCAL TITLE: CONSULT REPORT/PM&R STANDARD TITLE: PHYSICAL MEDICINE REHAB CONSULT DATE OF NOTE: JUN 30, 2024@11:59 ENTRY DATE: JUN 30, 2024@11:59:47 AUTHOR: RAISSA GUTIÉRREZ COSIGNER: URGENCY: STATUS: COMPLETED JUN 30, 2024 BLAYNE GOMEZ is a 69 y/o RHD WHITE MALE, previously in [employer] FROM Apr TO Apr from [employer], who was seen today for consultation requested by _ today for chief complaint of low back pain. presents with several years of low back pain increasing in intensity. 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 Pain is entirely axial without any radicular components. On occasion does feel some tightness through the hips. He said a provider in the [place] area and had facet injections provided years ago. Did find that these gave him some relief. He has not had any recent physical therapy but is currently enrolled in physical therapy. He has been enrolled with acupuncture and is finding this mildly helpful. In an effort to the approval for GLP-1 agonist he has started the moves program but does not find this helpful. He is not morbidly overweight but is hopeful for getting approval and effort to improve his sleep apnea and hopefully not require CPAP. 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 He has an unrelated issue of difficulties utilizing his CPAP, chronic congestion, previous facial injuries during hockey. There were years that he was using Afrin and had rebound congestion. Now currently using Gwendolyn pot with no significant relief. Pain is bilateral in nature aching in the paralumbar region worsened with extension and lateral flexion. He finds going to the restroom and turning to wipe to be the most uncomfortable. He will get a sharp lancinating feeling. He does not have any pain radiating distally into the lower extremities. Denies weakness, numbness, or tingling in the lower extremities. Radiation: None Aggravating factors: Toileting and wiping. Getting up from a seated position. Twisting and bending. Alleviating factors: Mild improvement with acupuncture. Previous improvement with facet injections. Avoids anti-inflammatories. Severity: /10 Overall average level of function: /10 Timing: Intermittent Medications/Therapy/Interve ntions history: Acupuncture, facet injections, currently enrolled in physical therapy. Systemic/Other symptoms: Denies fever, chills, night sweats, weight loss, saddle paresthesia, or bowel/bladder incontinence. Daily activities/exercise: He does use an elliptical. He also uses machines at the gym. Avoid free weight Pertinent prior procedures and/or imaging: Facet injections several years ago. Had x-rays [facility] demonstrating anterior osteophytosis with multilevel disc degeneration and loss of lumbar lordosis. Grade 1 spondylolisthesis L5-S1. PMHx as obtained from Chart: Active problems - Computerized Problem List is the source for the followin. HTN - Hypertension ([facility] [id number]) 2. Sleep apnea 3. Backache 4. Gastroesophageal reflux disease 5. Cataract ([facility] [id number]) 6. Hearing loss 7. Chronic maxillary sinusitis 8. Mood disorder 9. AR - Allergic rhinitis 10. Tinnitus PSxHx: [place] teeth as a youth noncontributory Fam Hx: Soc Hx: MARITAL STATUS - AIR [employer] FROM Apr TO Apr Service Connected Disabilities with % Eligibility: SERVICE CONNECTED 50% to 100% VERIFIED Total S/C %: 70 TINNITUS 10% S/C LIMITED MOTION OF ARM 20% S/C ALLERGIC OR VASOMOTOR RHINITIS 0% S/C SINUSITIS,MAXILLARY,CHRONIC 0% S/C LIMITED MOTION OF ARM 20% S/C MOOD DISORDER 30% S/C IMPAIRED HEARING 10% S/C ALL: Patient has answered NKA MEDS: Active Outpatient Medications (including Supplies): Non-VA ALBUTEROL [...] BEFORE BREAKFAST Indication: FOR GASTROESOPHAGEAL REFLUX DISEASE No Active Remote Medications for this patient ROS: Constitutional - Denies fever or chills, night sweats, or unexplained weight loss. Head/Eyes/Ears/Neck- Denies headaches, dizziness, visual changes. Cardiovascular - Denies chest pain/palpitations, lower extremity swelling. Respiratory - Denies shortness of breath, or cough. GI - Denies nausea, vomiting, or loss of bowel fx/control. - Denies urinary difficulties or loss of bladder function. Musculoskeletal - See HPI. Neuro - See HPI. Psychiatric - See PMHx. Denies mood swings or change in behavior. Sleep - Denies nocturnal pain or excessive daytime fatigue. Skin/integuments - Denies rashes, lesions, or skin breakdown in the extremities. All other systems reviewed and are negative. PHYSICAL EXAMINATION: Vitals in chart. GEN: WD, WN. Awake, alert, cooperative with exam. In NAD. PSYCH: Good eye contact. Normal mood. Appropriately concerned. CVS: Extremities warm/well perfused. No lower extremity edema appreciated. PULM: Breathing unlabored, no accessory muscle use. ABD: Nondistended. EXTREMITIES: No cyanosis or edema of bilateral upper and lower extremities. SKIN: No rashes, lesions, or skin breakdown over exposed areas. MUSCULOSKELETAL/NEURO EXAM: Healthy-appearing gentleman. Mildly overweight. Cervical range of motion is tolerated well. Some anterior inclination of the cervical spine with flattening of the thoracic and lumbar region. He has hypertonicity in the paralumbar region. Increased discomfort with extension and lateral flexion of the low back. He has no irritability about the sacroiliac joints. Tj's maneuver was negative. He does have some mild discomfort with FADIR's maneuver and tightening within the hip flexors as well as weakness. Lower abdominal weakness is noted but additionally tightness within the paralumbar fascia. Reflexes are symmetrical and 2+ at the knee and ankle. No sensory deficits are noted. Hallux valgus of the right foot was noted. Arch is well supported. Gait: normal, symmetric, negative Trendelenburg. Able to perform tandem walk and heel/toe walk. Labs: Collection DT Spec WBC HGB HCT PLT K+/Pot Sodium GLUCOSE 05/10/2024 11:57 BLOOD 6.13 15.7 46.0 199 05/10/2024 11:57 SERUM 4.4 136 94 Collection DT Spec CREATIN AST ALT T BILI ALK CHARISSE 05/10/2024 11:57 SERUM 1.18 23 32 0.9 54 CHEM 7 TREND LAB CUMULATIVE SELECTED Collection DT Spec GLUCOSE BUN CREATIN Sodium K+/Pot CL CO2 05/10/2024 11:57 SERUM 94 14 1.18 136 4.4 103 25 LAB CUMULATIVE SELECTED 2 No selection items chosen for this component. CHEM 7 Results Collection DT Spec Sodium K+/Pot CL CO2 GLUCOSE BUN 05/10/2024 11:57 SERUM 136 4.4 103 25 94 14 Liver Function Tests Collection DT Spec AST ALT ALK CHARISSE ALBUMIN T BILI T. PROT 05/10/2024 11:57 SERUM 23 32 54 4.4 0.9 7.7 HEMOGLOBIN A1C TREND No data available Diagnostic Studies: As above. ASSESSMENT/PLAN: Patient is a 69-year-old with lumbar spondylosis and spondylolisthesis L5-S1. Will continue with physical therapy. Encouraged to work on core abdominal strengthening and lengthening of the iliopsoas. Encouraged to work on hip knee and ankle mobility. Facet injections will be ordered at L4-5 and L5-S1 bilaterally. Briefly discussed medial branch blocks and possible radiofrequency ablation. Anticipate that improve mobility in the lower extremities will likely facilitate improvement in his low back pain as well. In reference to sleep apnea, suggested and placed consultation for ENT to evaluate nasal congestion and hopefully to improve tolerance for CPAP. He will continue to work on weight reduction and continue to work with primary care on approval for GLP-1 agonist. FOLLOW-UP: After injections Potential risks and side effects of any medication(s) prescribed today was reviewed with . Patient had many excellent questions, which I answered to the best of my ability and to patient's apparent satisfaction. MDM: 60 minutes which includes reviewing records, evaluating patient, documenting in medical record, educating, counseling and coordinating care. Medication Reconciliation: Outpatient: Has the patient been taking medications as documented in the EMLR? YES: The patient has been taking medications as documented in the EMLR. Essential Medication List for Review used to complete this medication reconciliation. INCLUDED IN THIS LIST: Alphabetical list of active outpatient prescriptions dispensed from this [facility] (local) and dispensed from another VA or DoD facility (remote) as well as inpatient orders (local, pending and active), local clinic medications, locally documented non-VA medications, and local prescriptions that have or been discontinued in the past 90 days. - All changes in medications, including all non-VA/Herbal/OTC medications were entered into CPRS. - If there were any medications the patient should no longer take, they were discontinued. - The patient/caregiver was instructed to update this list, discard old lists, and take this list to the next appointment, whether with a VA or non-VA provider. JLV Link Data on this list may not be complete. Please check JLV. Allergies/ADRs (Tool #5) FACILITY ALLERGY/ADR -------- No Remote Allergy/ADR Data available for this patient [place] [facility] [place] [facility] No Known Allergies [facility] [place] (Tool #1[facility] INCLUDED IN THIS LIST: Alphabetical list of active outpatient prescriptions dispensed from this VA (local) and dispensed from another VA or DoD facility (remote) as well as inpatient orders (local pending and active), local clinic medications, locally documented non-VA medications, and local prescriptions that have or been discontinued in the past 90 days. Non-VA Meds Last Documented On: May 19, 2024 NOTE The display of VA prescriptions dispensed from another VA or DoD facility (remote) is limited to active outpatient prescription entries matched to National Drug File at the originating site and may not include some items such as investigational drugs, compounds, etc. NOT INCLUDED IN THIS LIST: Medications self-entered by the patient into personal health records (i.e. [email or web address]) are NOT included in this list. Non-VA medications documented outside this [place], remote inpatient orders (regardless of status) and remote clinic medications are NOT included in this list. The patient and provider must always discuss medications the patient is taking, regardless of where the medication was dispensed or obtained. Non-VA ALBUTEROL 90MCG (CFC-F) 200D ORAL INHL INHALE 1 PUFF BY MOUTH TWICE DAILY NEEDED Non-VA medication not recommended by VA provider. Non-VA AMLODIPINE BESYLATE 5MG TAB TAKE ONE TABLET BY MOUTH ONCE DAILY Indication: FOR HIGH BLOOD PRESSURE Non-VA FLUTICAS 500/SALMETEROL 50 INHL DISK 60 INHALE 1 PUFF BY MOUTH TWICE DAILY Non-VA medication not recommended by VA provider. Non-VA OMEPRAZOLE 20MG EC CAP TAKE 1 CAPSULE BY MOUTH EVERY MORNING 30 MINUTES BEFORE BREAKFAST Non-VA medication not recommended by VA provider. Indication: FOR GASTROESOPHAGEAL REFLUX DISEASE SUPPLIES /ronnie/ RAISSA GUTIÉRREZ [facility] Signed: 06/30/2024 12:23 RAISSA GUTIÉRREZ CNT [facility]
--- OUTSIDE RECORDS SUMMARY | 2024-08-30 08:07 | XMS_ITS | Encounter Summary ---
Author Name [facility] Address [address] [place] [id number] Care Team Providers Care Tile Grader Name Role Phone GUDELIA MERIDA Primary Care [...] PRESCRIPT ION RX Apr 13, 2022 [facility] [id number] [phone] ROJELIO GOMEZ PATIENT [facility] Apr 13, 2017 [id number] [phone] ROJELIO GOMEZ PATIENT [facility] E Apr 13, 2017 [facility] [phone] ROJELIO GOMEZ PATIENT Selected Encounter This section includes the information on record at [place] for the Encounter. Date/Time Encounter Type Encounter Description Reason Provider Source May 05, 2024 01:00 PM INFRARED THERAPY [facility] TREATMENT ICD-10-CM M54.59 Other low back pain OSWALDO SNELL IHE Encounter Template Text not used by [facility] Assessments - Encounter Diagnoses This section includes the primary and secondary diagnoses documented for the Encounter. Date/Time Primary/Secondary Diagnosis Diagnosis Name Provider Source May 05, 2024 01:12 PM PRIMARY Other low back pain BASSAM SNELL [place] [facility] [place] [facility] Plan of Treatment: Future Appointments (+ 6 months) and Future Tests (+/- 45 days) The Plan of Treatment section includes future care activities for the patient from all [place] treatmentfacilities. This section includes future appointments and future orders which are active, pending or scheduled. Future Appointments This section includes appointments that were scheduled to occur 6 months from the date of the Encounter, up to a maximum of 20 appointments. The data comes from all [place] treatment facilities. Appointment Date/Time Appointment Type Appointme nt Facility Name May 10, 2024 09:00 AM AMBULATORY - [facility]ICINE [place] [facility] [place] [facility] May 10, 2024 10:00 AM [facility] [place] [facility] [facility] [place] [facility] May 10, 2024 10:01 AM [facility] May 10, 2024 11:00 AM [facility] [place] [facility] [place] [facility] [facility] May 19, 2024 10:30 AM [facility]UL[facility] [place] [facility]ICINE [place] [facility] [place] [facility] Jun 03, 2024 08:30 AM [facility] [place] [facility] [place] [facility] [place] [facility] Jun 24, 2024 08:30 [facility] Jun [facility], [facility]24 09:00 AM [facility] [place] [facility] [place] [facility] Jun 30, 2024 09:00 AM AMBULATORY - NONE [facility] Jun 30, 2024 11:00 AM AM[facility]ULATORY [place] [facility]ICINE [place] [facility] [place] [facility] Jul 04, 2024 09:00 AM [facility] Jul 07, 2024 09:00 AM [facility] - [facility] Jul 25, 2024 09:00 AM AM[facility]ULATORY - [facility]ICINE [place] [facility] [place] [facility] Jul 25, 2024 10:00 AM AMBULATORY [place] [facility]ICINE [place] [facility] Jul 28, 2024 09:00 AM AM[facility]ULATORY - NONE [facility] Jul 29, 2024 08:00 AM [facility] Aug 02, 2024 08:30 AM [facility] Aug 02, 2024 08:31 AM [facility] Aug 04, 2024 09:00 AM AM[facility]ULATORY - NONE [facility] Aug 04, 2024 02:00 PM [facility] Lab Results: +/- 30 days of the encounter This section includes the Chemistry and Hematology Lab Results on record with [place] for the patient. Radiology Reports and Pathology Reports are provided separately, in subsequent sections. Lab Results This section contains the Chemistry/Hematology Results that were resulted 30 days before or 30 daysafter the date of the Encounter. Date/Time Source Result Type Result - Unit Interpretation Reference Range Specimen Type Comment May 10, 2024 11:57 AM [facility] LIVER FUNCTION SERUM Specimen Type: SERUM No comment entered. Ordering Provider: GUDELIA MERIDA Report Released Date/Time: May 10, 2024 11:50 AM Reporting Lab: [address] [address] Performing Lab: [address] [address] PROTEIN,TOTAL 7.7 g/dL 6.0-8.3 ALBUMIN 4.4 g/dL 3.5-5.0 ALKALINE PHOSPHATASE 54 U/L 40-150 AST 23 U/L 5-34 ALT 32 U/L BILIRUBIN, TOTAL 0.9 mg/dL 0.2-1.2 May 10, 2024 11:57 AM [facility] BASIC METABOLIC PANEL (non-fasting) SERUM Spe cimen Type: SERUM No comment entered. Ordering Provider: GUDELIA MERIDA Report Released Date/Time: May 10, 2024 11:50 AM Reporting Lab: [address] [address] Performing Lab: [address] [address] UREA NITROGEN 14 mg/dL 7-25 GLUCOSE 94 [...] May 10, 2024 11:50 AM Reporting Lab: [facility] [address] [facility] [address] Performing Lab: [facility] [address] [facility] [address] WBC 6.13 10*3/uL 4.50-11.00 RBC 5.21 10*6/uL 4.23-5.66 HGB 15.7 g/dL 12.8-17 HCT 46.0 39.2-50.4 MCV 88.3 fL 82-99 MCHC 34.1 g/dL 30.8-35.1 PLT 199 10*3/uL 140-360 RDW-CV 12.7 12.0-16.0 MCH 30.1 pg 26.2-32.6 Social History: Smoking Status (Most current) and Tobacco Use (All prior to encounter date) This section includes the most current, and the historical, smoking and tobacco- related health factors from the [place] facility where the Encounter took place. Current Smoking Status This section includes the most current smoking, or tobacco-related health factor, from the [place] facility where the Encounter took place. Date/Time Current Smoking Status Comment Cari benton Jun 06, 2023 12:22 PM VA-TOBACCO NEVER USED [facility] Radiology Reports: +/- 30 days of [...] the Encounter. The data comes from all [place] treatment facilities. Date/Time Radiology Report Provider Source May 19, 2024 11:19 AM SPINE LUMBOSACRAL MIN 2 VIEWS: BLAYNE GOMEZ [id number] -[phone] M Exm Date: MAY 19, 2024@11:19 Req Phys: GUDELIA MERIDA Pat Loc: CWM/NO/PACT EIGHT (Req'g Loc) Img Loc: [facility]BUILDING 1 Service: [place] [address] (Case [id number] COMPLETE) SPINE LUMBOSACRAL MIN 2 VIEWS (RAD Detailed) CPT:35645 Reason for Study: low back pain Clinical History: prev saw physiatry- chronic back pain Report Status: Verified Date Reported: MAY 19, 2024 Date Verified: MAY 19, 2024 Radiologic Electronic Specialist E-Sig:/ES/TRACIE HARVEY JR Report: Study: AP, lateral [...] Primary Interpreting Staff: TRACIE HARVEY JR, Radiologist (Radiologic Electronic Specialist) /TRACIE WOMACK JR [facility] Encounter Notes: All associated encounter notes This section contains the clinical notes associated to the Encounter. Date/Time Encounter Note(s) Provider Source May 05, 2024 01:07 PM ACUPUNCTURE NOTE: LOCAL TITLE: ACUPUNCTURE TREATMENT STANDARD TITLE: ACUPUNCTURE NOTE DATE OF NOTE: MAY 05, 2024@13:07 ENTRY DATE: MAY 05, 2024@13:07:25 AUTHOR: GEORGINA SNELL EXP COSIGNER: URGENCY: STATUS: COMPLETED VISIT Number: BLAYNE GOMEZ is a 69 WHITE MALE who presents with Chronic low back pain Active Problem Sleep apnea G47.30 08/10/2023 FURCOLO,GUDELIA Backache M54.59 08/10/2023 FURCOLO,GUDELIA Gastroesophageal reflux disease K21 08/10/2023 FURCOLO,GUDELIA Elevated blood-pressure reading wit 08/10/2023 FURCOLO,GUDELIA Cataract ([facility] [phone]) H26.9 06/23/2023 GENNARO,MISTY MARCANO Hearing loss H91.90 06/23/2023 MISTY BURDICK Chronic maxillary sinusitis J32.0 06/23/2023 BURDICK,MISTY MARCANO Mood disorder F39. 06/23/2023 MISTY BURDICK AR - Allergic rhinitis J30.9 06/23/2023 BURDICK,MISTY MARCANO Tinnitus H93.19 06/23/2023 MISTY BURDICK Date Apr CC / HPI - [place] presents with history of chronic low back pain. He states that he was in [employer] and often pulled hi G's. 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 [place]erton states the pain is focused in the lumbar and SI joint. states that there is no radiation of pain into his legs or buttocks. Edgerton has current pain level of 3/10 but pain can flare with specific movements. [place] states that twisting and bending movements especially simultaneously can drop him to his knees . Edgerton states specifically getting off the toilet and wiping himself can flare his pain. Most recent flare was 2 days ago. has had acupuncture prior to COVID and found moderate relief. states he also has intermittent neck issues but generally his upper back does not cause him complaint. has an additional complaint of tinnitus which he says makes him crazy. states that over the past year or so he has had increasing anxiety and blames it on the tendinitis. RESPONSE TO PREVIOUS TREATMENT. stated his initial treatment provided no appreciable improvement in his low back pain. OBJECTIVE General: . Patient in no apparent [...] walker, cane ASSESSMENT / SUMMARY Affected Channel: UB, GB Medical Decision Making (MDM) [ ]Straightforward o [ ]Minimal = 1 self-limited or minor problem [ ]Low o - 2 or more [...] ]Pyonex Needle: remove prior to bathing per process environmental technician __ INFORMED CONSENT: Oral Consent obtained on Apr The patient was positioned comfortably. Oral consent [...] PROCEDURES: Set 1 TIME SPENT: 15 Minutes Position:[ ]Prone [X]Supine [ ]Left Side [ ]Right Side [ ]Seated Chair [ ] Massage Chair Points used: [X]Ear:[ ]Left [ ]Right [ ]Bilateral [ ]BFA Protocol, [ ][place] Protocol, [ ][place], Point Zero, Sympathetic [X] Ear: [X]Covarrubias Men, [X]Point Zero, [ ]Sympathetic [ ]Ear Other: [ ]Head: [ ]Neck: [ ]Torso: [ ]Hip / Glute Area: [ ]LUE: [ ]RUE: [ ]LLE: [ ]RLE: Set 2 TIME SPENT: 15 Minutes Position:[ ]Prone [X]Supine [ ]Left Side [ ]Right Side [ ]Seated Chair [ ] Massage Chair Points used: [ ]Ear:[ ]Left [ ]Right [ ]Bilateral [ ]BFA Protocol, [ ][place] Protocol, [ ][place], Point Zero, Sympathetic [ ] Ear: [ ]Covarrubias Men, [ ]Point Zero, [ ]Sympathetic [ ]Ear Other: [X]Head:UB 10 Bilateral [ ]Neck: [X]Torso:[X] UB 23, UB 24, UB 25, UB 26, UB 27, UB 28, UB 32, Yaoyan, UB 54, [ ] Hip / Glute Area: [ ]LUE: [ ]RUE: [X]LLE:UB 57 [X]RLE:UB 57 [ ]Other therapies: [ ]Cupping: [ ]Cold Laser [ ]Peizo Pen: [ ]External Qigong: [X]TDP Lamp:Sacrum [ ]Tui Na: [ ]Guasha: [ ]Nutrition [...] is required /ronnie/ GEORGINA SNELL 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
--- OUTSIDE RECORDS SUMMARY | 2024-08-30 08:07 | XMS_ITS | Continuity of Care Document ---
Author Name [facility] Organization D[facility]-NE Care Team Providers Care Automation Clerk Name Role Phone [facility] Unavailable Unavailable Problems Combined list of problems from Department of Defense and Veterans Affairs facilities. It does not include entries that were removed or entered in error. Problem Status Onset Date Problem Type Date of Resolution Comments Source AR - Allergic rhinitis Active Condition [facility] Backache Active Condition [facility] Cataract ([facility] [id number]) Active Condition [facility] Chronic maxillary sinusitis Active Condition [facility] Gastroesophageal reflux disease Active Condition [facility] Hearing loss Active Condition [facility] HTN - Hypertension ([facility] [id number]) Active Condition [facility] Mood disorder Active Condition [facility] Sleep apnea Active Condition Aug 10, 2023 Entered By: MARGARITA MERIDA Comment: sleep study 07/17/22[facility] [facility] Tinnitus Active Condition [facility] Diagnosis: ICD-10-CM J45.21 Mild intermittent asthma with (acute) exacerbation Active Diagnosis [facility] Diagnosis: ICD-10-CM M54.59 Other low back pain Active Diagnosis [facility] Diagnosis: ICD-10-CM E66.811 Obesity, class 1 Active Diagnosis [facility] Diagnosis: ICD-10-CM G47.30 Sleep apnea, unspecified Active Diagnosis [facility] Diagnosis: ICD-10-CM M54.6 Pain in thoracic spine Active Diagnosis [facility] Diagnosis: ICD-10-CM G47.33 Obstructive sleep apnea (adult) (pediatric) Active Diagnosis [facility] Diagnosis: ICD-10-CM M54.50 Low back pain, unspecified Active Diagnosis [facility] Diagnosis: ICD-10-CM M43.06 Spondylolysis, lumbar region Active Diagnosis [facility] Diagnosis: ICD-10-CM I10 Essential (primary) hypertension [facility] Diagnosis: ICD-10-CM R03.0 Elevated blood-pressure reading, w/o diagnosis of htn Active [facility] Diagnosis: ICD-10-CM Z46.1 Encounter for fitting and adjustment of hearing aid Active [facility] Diagnosis: ICD-10-CM H91.90 Unspecified hearing loss, unspecified ear Active Diagnosis [facility] Diagnosis: ICD-10-CM Z46.0 Encounter for fit/adjst of spectacles and contact lenses Active Diagnosis [facility] [place] [facility] Diagnosis: ICD-10-CM H25.11 Age-related nuclear cataract, right eye Active Diagnosis [facility] [place] [facility] Medications Combined list of outpatient medications from Department of Defense and Veterans Affairs facilities.Medications provided include 1) outpatient medications from the last 15 months, and 2) patient-reported medications. Medication Details Route Status Patient Instructions Prescription Expires Prescription Number Last Dispense Date Ordering Provider Order Date Order Qty Source ALBUTEROL 90MCG/ACTUA T (CFC-F) INHL,ORAL,8 .5GM DOSE COUNTER INHALE 1 PUFF BY MOUTH TWICE DAILY NEEDED RESPIR ATORY (INHAL ATION) ACTIVE Hue ARNOLD ICHELE 2019 [facility] [place] AMLODIPINE BESYLATE 5MG TAB TAKE ONE TABLET BY MOUTH ONCE DAILY ORAL ACTIVE FURKoko MAGALLON ERIBERTO 2024 [facility] BENZONATATE 200MG CAP TAKE ONE CAPSULE BY MOUTH THREE TIMES DAILY NEEDED FOR COUGH ORAL ACTIVE 09/28/2024 [id number] OCTAVIA BURDICK 2024 30 [facility] CODEINE 10MG/GUAIFE NESIN 100MG/5ML (SF & AF) LIQUID TAKE 1 TEASPOON FUL (5ML) BY MOUTH EVERY 6 HOURS NEEDED ORAL ACTIVE 09/28/2024 [id number] OCTAVIA BURDICK 2024 118 [facility] FLUTICASONE 500MCG/SALM ETEROL 50MCG INHL,ORAL,D ISKUS,60 INHALE 1 PUFF BY MOUTH TWICE DAILY RESPIR ATORY (INHAL ATION) ACTIVE [facility] OMEPRAZOLE 20MG CAP,EC TAKE 1 CAPSULE BY MOUTH EVERY MORNING 30 MINUTES BEFORE BREAKFAS T ORAL ACTIVE Hue ARNOLD ICHELE 2022 [facility] PREDNISONE 20MG TAB TAKE THREE TABLETS BY MOUTH ONCE DAILY FOR 2 DAYS, THEN TAKE TWO TABLETS ONCE DAILY FOR 2 DAYS, THEN TAKE ONE TABLET ONCE DAILY FOR 2 DAYS ORAL ACTIVE 09/28/2024 [id number] OCTAV[facility] BURDICK 20[facility] Immunizations Combined list of available immunizations from the Department of Defense and Veterans Affairs facilities. Immunization Series Date Given Administered By Site Reaction Lot Number CVX Code Drug Shoe Repair Supervisor Status Comments Source COVID-19 (MODERNA), MRNA, LNP-S, PF, 100 MCG/0.5ML DOSE OR 50 MCG/0.25ML DOSE 2 2020 207 complet ed HISTORICA L INFORMATI ON - FROM OTHER REGISTRY, Covid card Lot#: [id number] Mfr: MODERNA [employer] [facility] COVID-19 (MODERNA), MRNA, LNP-S, PF, 100 MCG/0.5ML DOSE OR 50 MCG/0.25ML DOSE 1 2020 207 complet ed HISTORICA L INFORMATI ON - FROM OTHER REGISTRY, Covid Card Lot#: [id number] Mfr: MODERNA [employer] [facility] ZOSTER RECOMBINANT 2 2019 187 complet ed HISTORICA L INFORMATI ON - FROM OTHER REGISTRY, JLV [facility] ZOSTER RECOMBINANT 1 2018 187 complet ed HISTORICA L INFORMATI ON - FROM OTHER REGISTRY, [facility] TD(ADULT) UNSPECIFIED FORMULATION 2017 139 complet ed Completed Series, HISTORICA L INFORMATI ON - FROM OTHER REGISTRY, [facility] PNEUMOCOCCAL POLYSACCHARID E [id number] 2013 33 complet ed Completed Series, HISTORICA L INFORMATI ON - FROM OTHER REGISTRY, [facility] TDAP 2007 115 complet ed Completed Series, HISTORICA L INFORMATI ON - FROM OTHER REGISTRY, [facility] influenza virus vaccine, whole virus 1 1999 Unknown, Provider [id number] [facility] ([facility]) complet ed influenza virus vaccine, whole virus DoD tuberculin skin test; purified protein derivative solution, intradermal 1 1999 Unknown, Provider [id number] [employer]i Pasteur ([facility]) complet ed tuberculi n skin test; purified protein derivativ e solution, intraderm al DoD anthrax vaccine 4 1999 Unknown, Provider [id number] [employer] ([facility]) complet ed anthrax vaccine DoD influenza virus vaccine, whole virus 1 1998 Unknown, Provider [id number] 16 IdmelissaDarron ([facility]) complet ed influenza virus vaccine, whole virus DoD anthrax vaccine 3 1998 Unknown, Provider [id number] [employer] ([facility]) complet ed anthrax vaccine DoD meningococcal polysaccharid e vaccine (MPSV4) 1 1998 Unknown, Provider [id number] [employer]i Pasteur ([facility]) complet ed meningoco ccal polysacch aride vaccine (MPSV4) DoD anthrax vaccine 2 1997 Unknown, Provider [id number] [employer] ([facility]) complet ed anthrax vaccine DoD anthrax vaccine 1 1997 Unknown, Provider [id number] [employer] ([facility]) complet ed anthrax vaccine DoD tuberculin skin test; purified protein derivative solution, intradermal 1 1997 Unknown, Provider [id number] Fransisca (CON) complet ed tuberculi n skin test; purified protein derivativ e solution, intraderm al DoD influenza virus vaccine, whole virus 1 1997 Unknown, Provider [id number] 16 Sanofi Pasteur ([facility]) complet ed influenza virus vaccine, whole virus DoD typhoid vaccine, parenteral, acetone-kille d, dried (U.S. ) 2 1997 Unknown, Provider 53 () complet ed typhoid vaccine, parentera l, acetone-k illed, dried (U.S. ) DoD hepatitis A vaccine, adult dosage 2 1997 Unknown, Provider 52 () complet ed hepatitis A vaccine, adult dosage DoD influenza virus vaccine, whole virus 1 1996 Unknown, Provider 16 () complet ed influenza virus vaccine, whole virus DoD hepatitis A vaccine, adult dosage 1 1996 Unknown, Provider 52 () complet ed hepatitis A vaccine, adult dosage DoD yellow fever vaccine 1 1994 Unknown, Provider 37 () complet ed yellow fever vaccine DoD tetanus and diphtheria toxoids, adsorbed, preservative free, for adult use (2 Lf of tetanus toxoid and 2 Lf of diphtheria toxoid) 1 1991 Unknown, Provider 09 () complet ed tetanus and diphtheri a toxoids, adsorbed, preservat briseida free, for adult use (2 Lf of tetanus toxoid and 2 Lf of diphtheri a toxoid) [facility] trivalent poliovirus vaccine, live, oral 1 1980 Unknown, Provider 02 () complet ed trivalent polioviru s vaccine, live, oral [facility] Results Combined list of recent chemistry, hematology and other laboratory results from Department of Defense and Veterans Affairs, ranging from 15 months to all on record, depending upon the facility. Order Name Results Value Reference Range Date Interpretation Specimen Comments Source OCCULT BLOOD FIT X1 SCREEN (MFP ONLY) HEMOGLOBIN .GASTROINT ESTINAL.LO WER [PRESENCE] IN STOOL BY IMMUNOASSA Y POSITIVE 07/24 Specimen Type: FECES No comment entered. Ordering Provider: MARGARITA MERIDA Report Released Date/Time: Jun 20, 2024 12:27 PM Reporting Lab[facility] [address] [address] Performing Lab: [facility] [address] [facility] [address] [facility]USE [facility] BASIC METABOLI C PANEL (non-fas ting) UREA NITROGEN [MASS/VOLU ME] IN SERUM OR PLASMA 14 mg/dL 7 - 25 05/10 Specimen Type: SERUM No comment entered. Ordering Provider: MARGARITA MERIDA Report Released Date/Time: May 10, 2024 11:50 AM Reporting Lab: [facility]USE[address] [address] Performing Lab: [facility] [address] [address] [facility] BASIC METABOLI C PANEL (non-fas ting) GLUCOSE [MASS/VOLU ME] IN SERUM OR PLASMA 94 mg/dL 65 - 100 05/10 Specimen Type: SERUM No comment entered. Ordering Provider: MARGARITA MERIDA Report Released Date/Time: May 10, 2024 11:50 AM Reporting Lab: [facility] [address] Performing Lab: [facility] [address] [facility] BASIC METABOLI C PANEL (non-fas ting) SODIUM [MOLES/VOL UME] IN SERUM OR PLASMA 136 mmol/L 135 - 145 05/10 Specimen Type: SERUM No comment entered. Ordering Provider: MARGARITA MERIDA Report Released Date/Time: May 10, 2024 11:50 AM Reporting Lab: [facility] [address] Performing Lab: [facility] [address] [facility] BASIC METABOLI C PANEL (non-fas ting) POTASSIUM [MOLES/VOL UME] IN SERUM OR PLASMA 4.4 mmol/L 3.5 - 5.0 05/10 Specimen Type: SERUM No comment entered. Ordering Provider: MARGARITA MERIDA Report Released Date/Time: May 10, 2024 11:50 AM Reporting Lab: [facility] [place] [address] [address] Performing Lab: [facility] [place] [address] [address] [facility] [facility] BASIC METABOLI C PANEL (non-fas ting) CHLORIDE [MOLES/VOL UME] IN SERUM OR PLASMA 103 mmol/L 100 - 110 05/10 Specimen Type: SERUM No comment entered. Ordering Provider: MARGARITA MERIDA Report Released Date/Time: May 10, 2024 11:50 AM Reporting Lab: [facility] [place] [address] [address] Performing Lab: [facility] [place] [address] [address] [facility] [place] [facility] BASIC METABOLI C PANEL (non-fas ting) CARBON DIOXIDE, TOTAL [MOLES/VOL UME] IN SERUM OR PLASMA 25 meq/L 20 - 30 05/10 Specimen Type: SERUM No comment entered. Ordering Provider: MARGARITA MERIDA Report Released Date/Time: May 10, 2024 11:50 AM Reporting Lab: [facility] [place] [address] [address] Performing Lab: [facility] [place] [address] [address] [facility] [place] [facility] BASIC METABOLI C PANEL (non-fas ting) CREATININE [MASS/VOLU ME] IN SERUM OR PLASMA 1.18 mg/dL 0.50 - 1.40 05/10 Specimen Type: SERUM No comment entered. Ordering Provider: MARGARITA MERIDA Report Released Date/Time: May 10, 2024 11:50 AM Reporting Lab: [facility] [place] [address] [address] Performing Lab: [facility] [place] [address] [address] [facility] [facility] BASIC METABOLI C PANEL (non-fas ting) GLOMERULAR FILTRATION RATE/1.73 SQ M.PREDICTE D [VOLUME RATE/AREA] IN SERUM, PLASMA OR BLOOD BY CREATININE -BASED FORMULA (CKD-EPI 2020) 68 mL/min 60 05/10 Specimen Type: SERUM No comment entered. Ordering Provider: MARGARITA MERIDA Report Released Date/Time: May 10, 2024 11:50 AM Reporting Lab: [facility] [place] [address] [address] Performing Lab: [facility] [place] [address] [address] [facility] [place] [facility] CBC LEUKOCYTES [#/VOLUME] IN BLOOD BY AUTOMATED COUNT 6.13 10*3/uL 4.50 - 11.00 05/10 Specimen Type: BLOOD No comment entered. Ordering Provider: MARGARITA MERIDA Report Released Date/Time: May 10, 2024 11:50 AM Reporting Lab: [facility] [place] [address] [address] Performing Lab: [facility] [place] [address] [address] [facility] [place] [facility] CBC ERYTHROCYT ES [#/VOLUME] IN BLOOD BY AUTOMATED COUNT 5.21 10*6/uL 4.23 - 5.66 05/10 Specimen Type: BLOOD No comment entered. Ordering Provider: MARGARITA MERIDA Report Released Date/Time: May 10, 2024 11:50 AM Reporting Lab: [facility] [place] [address] [address] Performing Lab: [facility] [place] [address] [address] [facility] [place] [facility] CBC HEMOGLOBIN [MASS/VOLU ME] IN BLOOD 15.7 g/dL 12.8 - 17 05/10 Specimen Type: BLOOD No comment entered. Ordering Provider: MARGARITA MERIDA Report Released Date/Time: May 10, 2024 11:50 AM Reporting Lab: [facility] [place] [address] [place] [address] Performing Lab: [facility] [address] [facility] [address] [facility] [place] [facility] CBC HEMATOCRIT [VOLUME FRACTION] OF BLOOD BY AUTOMATED COUNT 46.0 39.2 - 50.4 05/10 Specimen Type: BLOOD No comment entered. Ordering Provider: MARGARITA MERIDA Report Released Date/Time: May 10, 2024 11:50 AM Reporting Lab: [facility] [address] [facility] [address] Performing Lab: [facility] [place] [facility] [address] [facility] [address] [facility] [place] [facility] CBC MCV [ENTITIC VOLUME] BY AUTOMATED COUNT 88.3 fL 82 - 99 05/10 Specimen Type: BLOOD No comment entered. Ordering Provider: MARGARITA MERIDA Report Released Date/Time: May 10, 2024 11:50 AM Reporting Lab: [facility] [address] [facility] [address] Performing Lab: [facility] [place] [facility] [address] [facility] [address] [facility] [place] [facility] CBC MCHC [MASS/VOLU ME] BY AUTOMATED COUNT 34.1 g/dL 30.8 - 35.1 05/10 Specimen Type: BLOOD No comment entered. Ordering Provider: MARGARITA MERIDA Report Released Date/Time: May 10, 2024 11:50 AM Reporting Lab: [facility] [address] [facility] [address] Performing Lab: [facility] [place] [facility] [address] [facility] [address] [facility] [place] [facility] CBC PLATELETS [#/VOLUME] IN BLOOD BY AUTOMATED COUNT 199 10*3/uL 140 - 360 05/10 Specimen Type: BLOOD No comment entered. Ordering Provider: MARGARITA MERIDA Report Released Date/Time: May 10, 2024 11:50 AM Reporting Lab: [facility] [place] [address] [place] [address] Performing Lab: [facility] [place] [facility] [address] [facility] [address] [facility] [facility] CBC ERYTHROCYT E DISTRIBUTI ON WIDTH [RATIO] BY AUTOMATED COUNT 12.7 12.0 - 16.0 05/10 Specimen Type: BLOOD No comment entered. Ordering Provider: MARGARITA MERIDA Report Released Date/Time: May 10, 2024 11:50 AM Reporting Lab: [facility] [place] [facility] [address] [facility] [address] Performing Lab: [facility] [place] [facility] [address] [facility] [address] [facility] [facility] CBC MCH [ENTITIC MASS] BY AUTOMATED COUNT 30.1 pg 26.2 - 32.6 05/10 Specimen Type: BLOOD No comment entered. Ordering Provider: MARGARITA MERIDA Report Released Date/Time: May 10, 2024 11:50 AM Reporting Lab: [facility] [place] [facility] [address] [facility] [address] Performing Lab: [facility] [place] [facility] [address] [facility] [address] [facility] [place] [facility] LIVER FUNCTION PROTEIN [MASS/VOLU ME] IN SERUM OR PLASMA 7.7 g/dL 6.0 - 8.3 05/10 Specimen Type: SERUM No comment entered. Ordering Provider: MARGARITA MERIDA Report Released Date/Time: May 10, 2024 11:50 AM Reporting Lab: [facility] [place] [facility] [address] [facility] [address] Performing Lab: [facility] [place] [facility] [address] [facility] [address] [facility] [place] [facility] LIVER FUNCTION ALBUMIN [MASS/VOLU ME] IN SERUM OR PLASMA 4.4 g/dL 3.5 - 5.0 05/10 Specimen Type: SERUM No comment entered. Ordering Provider: MARGARITA MERIDA Report Released Date/Time: May 10, 2024 11:50 AM Reporting Lab: [facility] [place] [facility] [address] [facility] [address] Performing Lab: [facility] [place] [facility] [address] [facility] [address] [facility] LIVER FUNCTION ALKALINE PHOSPHATAS E [ENZYMATIC ACTIVITY/V OLUME] IN SERUM OR PLASMA 54 U/L 40 - 150 05/10 Specimen Type: SERUM No comment entered. Ordering Provider: MARGARITA MERIDA Report Released Date/Time: May 10, 2024 11:50 AM Reporting Lab: [facility] [place] [facility] [address] [facility] [address] Performing Lab: [facility] [place] [facility] [address] [facility] [address] [facility] [place] [facility] LIVER FUNCTION ASPARTATE AMINOTRANS FERASE [ENZYMATIC ACTIVITY/V OLUME] IN SERUM OR PLASMA 23 U/L 5 - 34 05/10 Specimen Type: SERUM No comment entered. Ordering Provider: MARGARITA MERIDA Report Released Date/Time: May 10, 2024 11:50 AM Reporting Lab: [facility] [place] [facility] [address] [facility] [address] Performing Lab: [facility] [place] [facility] [address] [facility] [address] [facility] [place] [facility] LIVER FUNCTION ALANINE AMINOTRANS FERASE [ENZYMATIC ACTIVITY/V OLUME] IN SERUM OR PLASMA 32 U/L 05/10 Specimen Type: SERUM No comment entered. Ordering Provider: MARGARITA MERIDA Report Released Date/Time: May 10, 2024 11:50 AM Reporting Lab: [facility] [place] [facility] [address] [facility] [address] Performing Lab: [facility] [place] [facility] [address] [facility] [address] [facility] [place] [facility] LIVER FUNCTION BILIRUBIN. TOTAL [MASS/VOLU ME] IN SERUM OR PLASMA 0.9 mg/dL 0.2 - 1.2 05/10 Specimen Type: SERUM No comment entered. Ordering Provider: MARGARITA MERIDA Report Released Date/Time: May 10, 2024 11:50 AM Reporting Lab: [facility] [address] [facility] [address] Performing Lab: [facility] [place] [address] [facility] [address] [facility] Vital Signs Combined list of inpatient and outpatient Vital Signs from Department of Defense and Veterans Affairs, ranging from 12 months to all on record, depending upon the facility. Vital Sign Value Date Comments Source SYSTOLIC BLOOD PRESSURE 153 08/30/19 25 10:43:17 [facility] DIASTOLIC BLOOD PRESSURE 74 025 10:43:17 [facility] PULSE OXIMETRY 95 08/29/2024 10:43:17 [facility] TEMPERATURE 98.1 08/29/2024 10:43:17 [facility] PULSE 56 08/29/2024 10:43:17 [facility] RESPIRATION 18 08/29/2024 10:43:17 [facility] WEIGHT 206 08/18/2024 09:00:00 [facility] BMI 31 kg/m2 08/18/2024 09:00:00 [facility] WEIGHT 203 08/04/2024 09:00:00 [facility] BMI 31 kg/m2 08/04/2024 09:00:00 [facility] PULSE OXIMETRY 98 08/02/2024 08:37:34 [facility] WEIGHT 204 08/02/2024 08:37:34 [facility] BMI 31 kg/m2 08/02/2024 08:37:34 [facility] HEIGHT 68 08/02/2024 08:37:34 [facility] TEMPERATURE 97.7 08/02/2024 08:37:34 [facility] PULSE 59 08/02/2024 08:37:34 [facility] RESPIRATION 20 08/02/2024 08:37:34 [facility] WEIGHT 203 07/28/2024 09:00:00 [facility] BMI 31 kg/m2 07/28/2024 09:00:00 [facility] Encounters Combined list of: 1) Encounters from Department of Veterans Affairs facilities going backup to the last 18 months, not all VA inpatient encounters are included; 2) Encounters from the Department of [facility] facilities going backup to 280 months. Location Location Details Encounter Type Encounter Number Reason For Visit Attending Provider ADM Date DC Date Status Disposition Source [facility] Encounter [id number] 04/01 [facility] EYE EXAM&TX ESTAB PT 1/>VST [id number] Diagnos is: ICD-10- CM H25.11 Age-rel ated nuclear catarac t, right eye JAYCEE ARNOLD 04/07 [facility] FIT SPECTACLES MONOFOCAL [id number] Diagnos is: ICD-10- CM Z46.0 Encount er for fit/adj st of spectac les and contact lenses JAYCEE ARNOLD 04/07 [facility] En[facility] [id number] 05/28 [facility]counter [id number] 06/05 [facility] [id number] 06/05 [facility] Encounter [id number] 06/06 [facility] HEARING AID FITTING/CH ECKING [id number] Diagnos is: ICD-10- CM Z46.1 Encount er for fitting and adjustm ent of hearing aid SUMAN CURIEL 06/15 [facility] Out[facility] Encounter [id number] Diagnos is: ICD-10- CM H91.90 Unspeci fied hearing loss, unspeci fied ear JADE BURDICK 06/24 [facility] Out[facility] Encounter [id number] 08/02 [facility] HEARING AID FITTING/CH ECKING [id number] Diagnos is: ICD-10- CM Z46.1 Encount er for fitting and adjustm ent of hearing aid ANDREA GANN L 08/09 [facility] [facility] OFFICE O/P NEW [place] 60 MIN [id number] Diagnos is: ICD-10- CM G47.30 Sleep apnea, unspeci fied FURCOLO,TI NA 08/09 [facility] Outpatient Encounter [id number] 08/10 [facility] OFF[facility] O/P EST SF 10 MIN [id number] Diagnos is: ICD-10- CM M54.59 Other low back pain GAUNYA,CHR ISTOPHER M 08/11 [facility] Outpatient Encounter [id number] 08/11 [facility] [place] Outpatient Encounter [id number] Diagnos is: ICD-10- CM G47.33 Obstruc tive sleep apnea (adult) ([facility] MAREKCHATO CATHIA 08/24 [facility] Outpatient Encounter [id number] 08/25 [facility] Outpatient Encounter [id number] 08/25 [facility] [id number] Diagnos is: ICD-10- CM G47.33 Obstruc tive sleep apnea (adult) ([facility] AMANT,MIKA E P 10/18 [place] [facility] POS AIRWAY PRESSURE CPAP [id number] Diagnos is: ICD-10- CM G47.30 Sleep apnea, unspeci fied ST AMANT,MIKA E P 11/01 [facility] [place] [place] SELF-MGMT EDUC & TRA[place] 1 [place] [id number] Diagnos is: ICD-10- CM G47.30 Sleep apnea, unspeci fied ST AMANT,MIKA E P 02/14 [place] [facility] INFRARED THERAPY [id number] Diagnos is: ICD-10- CM M54.59 Other low back pain GAUNYA,CHR ISTOPHER M 03/22 [facility] [place] INFRARED THERAPY [id number] Diagnos is: ICD-10- CM M54.59 Other low back pain GAUNYA,CHR ISTOPHER M 05/05 [facility] [place] INFRARED THERAPY [id number] Diagnos is: ICD-10- CM M54.59 Other low back pain GAUNYA,CHR ISTOPHER M 05/10 [facility] [place] TELEHEALTH FACILITY FEE [id number] Diagnos is: ICD-10- CM G47.33 Obstruc tive sleep apnea (adult) ([facility]) MALLOYCHALO 05/10 [facility] [place] OFFICE O/P NEW MOD 45 MIN [id number] Diagnos is: ICD-10- CM G47.33 Obstruc tive sleep apnea (adult) ([facility]) MELLISSACHALO 05/10 [place] [facility] OFF/OP EST MAY X REQ PHY/QHP [id number] Diagnos is: ICD-10- CM R03.0 Elevate d blood-p ressure reading , w/o diagnos is of htn SADAF PIZARRO LLE L 05/10 [facility] [place] Outpatient Encounter [id number] [facility] [place] OFF[place] O/P EST HI 40 MIN [id number] Diagnos is: ICD-10- CM I10 Essenti al (primar y) hyperte nsion FURCOLO,TI NA 05/19 [facility] [place] MANUAL THERAPY 1/> [facility] [id number] Diagnos is: ICD-10- CM M54.59 Other low back pain MATTUNDEBORAH DELAROSA 06/03 [facility] [place] [place] [facility]AN[facility] TRA[facility] THERAPY [id number] Diagnos is: ICD-10- CM M54.59 Other low back pain LY LARES 06/24 [facility] [place] [facility] [place] MANUAL THERAPY 1/> [facility] [id number] Diagnos is: ICD-10- CM M54.59 Other low back pain DEBORAH CHILDERS 06/27 [facility] [place] [facility] EDUCATION [id number] Diagnos is: ICD-10- CM E66.811 Obesity , class 1 GION,LAUREN HELLE SUKHJINDER 06/30 [facility] OFFICE O/P NEW HI 60 MIN [id number] Diagnos is: ICD-10- CM M43.06 Spondyl olysis, lumbar region [place] GUTIÉRREZ 06/30 [facility] [place] [facility] [place] APPL MODALITY 1+ESTIM EA 15 [id number] [id number] Diagnos is: ICD-10- CM M54.59 Other low back pain LY LAERS 07/04 [facility] [place] [facility] [place] Outpatient Encounter [id number] 07/05 [facility] [place] BEHAVE COUNS 2-10 [id number] [id number] Diagnos is: ICD-10- CM E66.811 Obesity , class 1 GINO,LAUREN HELLE SUKHJINDER 07/07 [facility] Outpatient Encounter [id number] 07/19 [facility] INFRARED THERAPY [id number] Diagnos is: ICD-10- CM M54.50 Low back pain, unspeci fied LISETH,CHR ISTOPHER M 07/25 [facility] OFF[facility] O/P NEW MOD 45 MIN [id number] Diagnos is: ICD-10- CM M54.59 Other low back pain MARIAELENA HERZOG RA 07/25 [facility] Outpatient Encounter [id number] 07/25 [facility] [place] IVNTJ GRP EA ADDL [id number] Diagnos is: ICD-10- CM E66.811 Obesity , class 1 WENDORF,AN MADELIN R 07/28 [facility] [place] THERAPEUTI C EXERCISES [id number] [id number] Diagnos is: ICD-10- CM M54.59 Other low back pain LY LARES DOC 07/29 [place] [facility] Outpatient Encounter [id number] JAYCEE MONTALVO 07/29 [facility] Out[facility] Encounter [id number] 07/29 [facility] Outpatient Encounter [id number] 08/01 [facility] [place] En[facility] [id number] 08/01 [facility] TELEHEALTH FACILITY FEE [id number] Diagnos is: ICD-10- CM G47.33 Obstruc tive sleep apnea (adult) ([facility] CHALO MALLOY 08/02 [facility] [place] OFFICE O/P EST MOD 30 MIN [id number] Diagnos is: ICD-10- CM G47.33 Obstruc tive sleep apnea (adult) ([facility] MELISSA MALLOYNNE 08/02 [facility] BEHAVE COUNS 2-10 [id number] Diagnos is: ICD-10- CM E66.811 Obesity , class 1 GINO,LAUREN HELLE SUKHJINDER 08/04 [facility] Outpatient Encounter [id number] 08/04 [facility] [place] MECHANICAL TRACTION THERAPY [id number] Diagnos is: ICD-10- CM M54.6 Pain in thoraci c spine MARIAELENA HERZOG RA 08/04 [facility] [place] SPECIAL SUPPLIES PHYS/QHP [id number] Diagnos is: ICD-10- CM G47.30 Sleep apnea, unspeci fied ORACIO ANGUIANO E E 08/05 [facility] [place] [place] THERAPEUTI C EXERCISES [id number] Diagnos is: ICD-10- CM M54.59 Other low back pain LY LARES 08/08 [place] [facility] ESW MUSCSKEL SYS NOS [id number] Diagnos is: ICD-10- CM M54.59 Other low back pain MARIAELENA HERZOG RA 08/11 [facility] [id number] [id number] Diagnos is: ICD-10- CM M54.59 Other low back pain LY LARES 08/15 [place] [facility] BHV IVNTJ GRP EA ADDL [id number] Diagnos is: ICD-10- CM E66.811 Obesity , class 1 KELI JACKSON R 08/18 [facility] MANUAL THERAPY 1/ [place] [id number] [id number] Diagnos is: ICD-10- CM M54.59 Other low back pain MARIAELENA HERZOG RA 08/18 [facility] [place] THERAPEUTI C EXERCISES [id number] Diagnos is: ICD-10- CM M54.59 Other low back pain MARIAELENA HERZOG RA 08/29 [facility] [place] Outpatient Encounter [id number] 08/29 [facility] [place] OFFICE O/P EST MOD 30 MIN [id number] Diagnos is: ICD-10- CM J45.21 Mild intermi ttent asthma with (acute) exacerb roberto JADE BURDICK 08/29 [facility] Social History Combined list of available smoking, tobacco, and other social history from Department of Defense and Veterans Affairs facilities. Social History Type Response Date Comment Sourc e Tobacco smoking status [facility] VA-TOBACCO NEVER USED CIGARETTES 05/10/2024 [facility] [place] [facility] History of tobacco use VA-TOBACCO NEVER USED OTHER TYPE 05/10/2024 [facility] [place] History of tobacco use NE-TOBACCO NEVER USED 06/06/2023 [facility] This section is an empty social history section. [facility] Plan of Care List of future care activities from Department of Veterans Affairs facilities. Additional future care activities may be listed in the Assessment and Plan section. Date/Time Care Activity Care Activity Detail Facili ty 08/29/2024 AMBULATORY - MEDICINE AMBULATORY - MEDICI [facility]
--- OUTSIDE RECORDS SUMMARY | 2024-08-30 08:07 | XMS_ITS | Encounter Summary ---
Author Name [facility] Organization [facility] Address [address] [place] [address] Care Team Providers Care Theater Projectionist Name Role Phone GUDELIA MERIDA Primary Care [...] PRESCRIPT ION RX Apr 13, 2022 [phone] [id number] [phone] ROJELIO GOMEZ PATIENT [facility] HEALTH PLAN [facility] USP -BRBRENDA HTON CHAN Apr 13, 2017 [phone] ROJELIO GOMEZ PATIENT [facility] HEALTH PLAN BRIGH TON CHAN E Apr 13, 2017 [facility] [id number] [phone] ROJELIO GOMEZ PATIENT Selected Encounter This section includes the information on record at [place] for the Encounter. Date/Time Encounter Type Encounter Description Reason Provider Source Jul 25, 2024 10:00 AM OFFICE O/P NEW MOD 45 MIN DATA CONTROL ASSISTANT ICD-10-CM M54.59 Other low back pain IGNACIO HERZOG Encounter Template Text not used by [facility] Assessments - Encounter Diagnoses This section includes the primary and secondary diagnoses documented for the Encounter. Date/Time Primary/Secondary Diagnosis Diagnosis Name Provider Source Jul 25, 2024 10:00 AM PRIMARY Other low back pain [place] [facility] [place] [facility] Plan of Treatment: Future Appointments (+ 6 months) and Future Tests (+/- 45 days) The Plan of Treatment section includes future care activities for the patient from all [place] [facility] This section includes future appointments and future orders which are active, pending or scheduled. Future Appointments This section includes appointments that were scheduled to occur 6 months from the date of the Encounter, up to a maximum of 20 appointments. The data comes from all [place] treatment facilities. Appointment Date/Time Appointment Type Appointme nt Facility Name Jul 28, 2024 09:00 AM AMBULATORY - NONE [facility] Jul 29, 2024 08:00 AM AMBULATORY - REHAB [facility] Aug 02, 2024 08:30 AM AMBULATORY - MEDICINE [place] [facility] [place] [facility] Aug 02, 2024 08:31 AM [facility] Aug 04, 2024 09:00 AM AMBULATORY - NONE [facility] Aug 04, 2024 02:00 PM AMBULATORY - MEDICINE [place] [facility] [facility] Aug 08, 2024 09:00 [facility] 11, [facility]24 09:30 AM AM[facility]UL[facility]ORY - MEDICINE [place] [facility] [facility] August 15, 2024 09:00 AM AMBULATORY - RE[facility]AB [facility] August 18, 2024 09:00 AM AM[facility]ATORY - NONE [facility] August 18, 2024 02:00 PM AMBULATORY - MEDICINE [place] [facility] [facility] August 29, 2024 09:00 AM AMBULATORY - MEDICINE [place] [facility] [place] [facility] August 29, 2024 11:30 AM AMBULATORY - MEDICINE [place] [facility] [place] [facility] August 30, 2024 08:15 AM AMBULATORY - NONE [facility] [place] [facility] September 06, 2024 02:00 PM AMBULATORY - MEDICINE [facility] [place] [facility] Active, Pending, and Scheduled Orders This section includes a listing of several types of active, pending, and scheduled orders, including clinic medications orders, diagnostic test orders, procedure orders and consult orders; where the start date of the order is 45 days before the date of the Encounter or 45 days after the date of theEncounter. The data comes from all [place] treatment facilities. Test Date/Time Test Type Test Details Facility Name Jun 30, 2024 11:41 AM Consult Order OTOLARYNGO LOGY/ENT ONE Cons Word Processor Technician's Choice [facility] Jul 29, 2024 01:24 PM Consult Order COMMUNITY CARE-COLONOSCOPY DIAGNOSTIC Cons Word Processor Technician's Choice [facility] Lab Results: +/- 30 days of the [...] Type Comment Jul 24, 2024 12:00 AM [facility] OCCULT BLOOD FIT X1 SCREEN (MFP ONLY) FECES S pecimen Type: FECES No comment entered. Ordering Provider: GUDELIA MERIDA Report Released Date/Time: Jun 20, 2024 12:27 PM Reporting Lab: [facility] [address] [facility] [id number] Performing Lab: [address] [address] OCCULT BLOOD (FIT)#1 OF 1 POSITIVE HH [...] Facil ity May 10, 2024 11:00 AM PR-TOBACCO NEVER U SED CIGARETTES [facility] Tobacco Use History This section includes a history of the smoking, or tobacco-related health factors, that were collected on or before the date of the Encounter. The data comes from the [place] facility where the Encounter took place. Date/Time Smoking Status/Tobacco Use Comment F acility May 10, 2024 11:00 AM VA-TOBACCO NEVER U SED OTHER TYPE [facility] [place] [facility] Jun 06, 2023 12:22 PM VA-TOBACCO NEVER USED [facility] [place] [facility] Encounter Notes: All associated encounter notes This section contains the clinical notes associated to the Encounter. 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 06/23/2023 MISTY BURDICK Past Surgeries: Central teeth remonved hernia repairs in childhood Patient presents to [place] [facility] with C/C of pain in [...] not change sx. Started Physical Therapy at [facility] and the therapist is good. Patient received a TENS unit which provides temporary relief Vet called his former PCP, the DO, who moved out of state. 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 Visit 1 F/U 4 weekly Seek urgent care as needed. CMT: chiropractic manipulative therapy F/D: Flexion Distraction MFR: Myofascial Release S-I: Sacroiliac MFTP: Myofascial Trigger Point NRS: Numeric Rating Scale /ronnie/ IGNACIO HERZOG D.C. CHIROPRACTOR Signed: 07/25/2024 11:58 IGNACIO HERZOG [facility]
--- OUTSIDE RECORDS SUMMARY | 2024-08-30 08:07 | XMS_ITS ---
Author Organization [facility] Address [address] [facility] [address] [place] [address] Care Team Providers Care Vegetables Cook Name Role Phone Yinka Aba Primary Care Provider DIVYA Barnard Unavailable [phone] Allergies No Known Allergies REASON FOR VISIT b/l pain follow up ? fluoro injection Medications Medication SIG (Take, Route, Frequency, Duration) Notes Start Date End Date Status ProAir HFA Not-Takin g Sildenafil Citrate 100 MG 1 tablet as needed Orally Once a day Not-Taking Omeprazole 20 MG 1 capsule 30 minutes before morning meal Orally Once a day Active Advair Diskus 250-50 MCG/ACT 1 puff Inhalation Twice a day Active Clotrimazole-Betamethaso ne 1-0.05 % 1 application Externally Twice a day for 28 days 10/30/2022 Not-Taki ng Problems Problem Type SNOMED Code ICD Code Onset Dates Problem Status W/U Status Risk Notes Problem Localized, primary osteoarthritis of the ankle and/or foot (033531402) 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) Active confirmed Problem Localized, primary osteoarthritis of the ankle and/or foot (323223603) 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) Active confirmed Vital Signs Temperature 96.9 degrees Fahrenheit 06/02/19 24 Heart Rate 68 /min 06/02/2023 Respiratory Rate 12 /min 06/02/2023 Height 5ft 8in in 06/02/2023 Weight 198 lbs 06/02/2023 BMI 30.1 kg/m2 06/02/2023 Procedures Procedure Date Ordered Date Performed Result Body Sit e DRAIN/INJECT, SMALL JOINT/BURSA 06/02/2023 N/A Encounters Encounter Location Date Provider Diagnosis [facility] [address] [facility] [facility] [address] [place] [address] 06/02/2023 DIVYA WALSH Arthritis of right midfoot M19.071 ; Chronic eczema of foot L30.9 ; Arthritis of left midfoot M19.072 ; Pain in right foot M79.671 and Pain in left foot M79.672 Assessments Encounter Date Diagnosis (ICD Code) Assessment Notes Treatment Notes Treatment Clinical Notes Section Notes 06/02/2023 Arthritis of right midfoot (ICD-10 - M19.071) Patient examined and evaluated. He has recurrence of pain to the midfoot bilaterally from his underlying degenerative arthritic changes at the 2nd TMTJ. The right is worse than the left. [...] activity for the next 2 days. I will see him back in the office as needed. I encouraged him to call with any questions or concerns. 06/02/2023 Chronic eczema of foot (ICD-10 - L30.9) 06/02/2023 Arthritis of left midfoot (ICD-10 - M19.072) 06/02/2023 Pain in right foot (ICD-10 - M79.671) 06/02/2023 Pain in left foot (ICD-10 - M79.672) Plan Of Treatment Pending Test Test Name Order Date DRAIN/INJECT, SMALL JOINT/BURSA 06/02/19 24 Medications Administered Medication Instructions Date of Administration Dosage Notes dexAMETHasone Sod Phosphate PF 06/02/2023 8 mg Progress Notes * Clinton GOMEZ DDOB:1955 (68 yo M)Acc No.[id number]:06/02/2023 Patient:?Clinton GOMEZ Provider:?Divya Oconnell DPM :1955???Age:68 Y???Sex:Male Landon e:06/02/2023 Address:[address] [place], [place] [id number] Pcp:Aba Honeycutt Subjective: * Chief Complaints: * ???B/l pain follow up ? fluo ro injection * HPI: ???Foot & Ankle:? Mr. Gomez is a pleasant 68 year old male who presents for follow up of his bilateral midfoot arthrosis. He has noticed recurrence of the pain over the past month. He states the right is worse than the left. He has had no swelling or redness to the area. It is only bothersome with ambulation. He did have some relief with the last xray guided injections. He is still dealing with a pruritic rash to the top of the right foot. This comes and goes. 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 * Medications:?TakingOmeprazol e 20 MG Capsule Delayed [...] Activated 1 puff Inhalation Twice a day Rds-GnrcuwJozbrklxozpa-Lnpshtokbhpon 1-0.05 % Cream 1 application Externally Twice [...] * Vitals:?Wt:198lbs, Ht: 5ft 8 in, BMI:30.1Index, HR:68/min, Temp:96.9F, RR:12/min, Ht-cm: 172.72, Wt-k.81 kg. * Examination: ???General [...] increase in thickness to the nail plates. There is an erythematous patch of skin to the dorsal medial aspect of the right foot with scaling present. No vesicles or pustules present. All interdigital spaces are clean, dry, and intact. There is a moderate hallux valgus deformity present bilatearlly. The right foot has hypertrophy at the dorsum of the 2nd/3rd TMTJ area. There is tenderness with pressure. The left foot has mild tenderness over the 2nd TMTJ area without any hypertrophy. Subtalar and ankle joint range of motion are unrestricted. 5/5 strength for anterior, posterior, and lateral lower extremity muscle groups on the left and right. Assessment: * Assessment: 1.?Chronic eczema of foot - L30.9 (Primary)?2.?Arthritis of right midfoot - M19.071?3.?Arthritis of left midfoot - M19.072?4.?Pain in right foot - M79.671?5.?Pain in left foot - M79.672? Plan: * Treatment: * Procedures:?FLUOROSCOPY GUIDED INJECTION RIGHT AND LEFT 2ND TARSOMETATARSAL JOINTS: A consent form was signed by [...] visualize the right and left 2nd TMT joint. This was marked using a pen. The area was cleansed with iodine solution. Ethyl chloride spray was then utilized to topically anesthetize the skin. 2cc steroid injection consisting of 1cc of 0.5% marcaine plain and 1cc of Dexamethasone 4mg/ml under live fluoroscopy to access the joint on each foot. Patient tolerated the procedure well. Patient had good relief immediately after. Hemostasis was maintained with direct pressure and a band-aid was applied to each foot. Total time of the procedure was less than 5 minutes. fluoro images attached to note. RIGHT AND LEFT FOOT RADIOGRAPHS USING FLUORO 2 non weight bearing views of both feet(AP and LAT) Taken in the office and read by the physician using the mini fluoroscopy machine. Osseous mineralization is age appropriate. There are no acute fractures or dislocations. No abnormal bone lesions or tumors. There is significant narrowing and sclerosis at the 2nd tarsometatarsal joint bilaterally. The right is worse than the left. There are dorsal osteophytes present at the right midfoot. There is underlying metatarsus adductus bilaterally. Bilateral hallux valgus with mild narrowing of the 1st MPJ bilaterally. Needle placement conrfirmed in the 2nd tarsometatarsal joint on AP views. These are attached. ? * Therapeutic Injections:? Dexamethasone : 8 mg given by DIVYA WALSH D.P.M. (Arthritis of right midfoot, Arthritis of left midfoot) * Procedure Codes:? DRAIN /INJECT, SMALL JOINT/BURSA, Modifiers: 50 J1100 INJ DEXAMETHASONE SODIM PHOSHATE 1 MG, Units: 2.00 * Billing Information: * Visit Code:? * Procedure Codes:? DRAIN/INJECT, SMALL JOINT/BURSA. Modifiers: 50 J1100 INJ DEXAMETHASONE SODIM PHOSHATE 1 MG. Units: 2.00. * Sign off status: Completed true * Provider:Yogesh Oconnell DPM Date:?06/02 Generated for Sydney mccabe/Abelardo/Meeitting on:?08/30/2024 08:07 AM EDT History and Physical Notes * [...] increase in thickness to the nail plates. There is an erythematous patch of skin to the dorsal medial aspect of the right foot with scaling present. No vesicles or pustules present. All interdigital spaces are clean, dry, and intact. There is a moderate hallux valgus deformity present bilatearlly. The right foot has hypertrophy at the dorsum of the 2nd/3rd TMTJ area. There is tenderness with pressure. The left foot has mild tenderness over the 2nd TMTJ area without any hypertrophy. Subtalar and ankle joint range of motion are unrestricted. 5/5 strength for anterior, posterior, and lateral lower extremity muscle groups on the left and right.
--- OUTSIDE RECORDS SUMMARY | 2024-08-30 08:07 | XMS_ITS ---
Author Name [facility] [place] Address [address] [place] [address] Care Team Providers Care Rn Peritoneal Dialysis Name Role Phone GUDELIA MERIDA Primary Care [...] PRESCRIPT ION RX Apr 13, 2022 THPRX [id number] [phone] PATRICIAROJELIO Triplett PATIENT [facility] Apr 13, 2017 [id number] [phone] ROJELIO GOMEZ PATIENT [facility] E Apr 13, 2017 [id number] [phone] ROJELIO GOMEZ PATIENT Selected Encounter This section includes the information on record at [place] for the Encounter. Date/Time Encounter Type Encounter Description Reason Provider Source Jun 27, 2024 09:00 AM MANUAL THERAPY 1/> [facility] TREATMENT ICD-10-CM M54.59 Other low back pain OSWALDO SNELL E Encounter Template Text not used by [facility] Assessments - Encounter Diagnoses This section includes the primary and secondary diagnoses documented for the Encounter. Date/Time Primary/Secondary Diagnosis Diagnosis Name Provider Source Jun 27, 2024 09:19 AM PRIMARY Other low back pain BASSAM SNELL [place] [facility] [place] [facility] Plan of Treatment: Future Appointments [...] Appointment Type Appointme nt Facility Name Jun 30, 2024 09:00 AM AMBULATORY - NONE [facility] Jun 30, 2024 11:00 AM AMBULATORY - [place]ICINE [place] [facility] [place] [facility] Jul 04, 2024 09:00 AM AMBULATORY - REHAB MEDICIN [facility] Jul 07, 2024 09:00 AM AMBULATORY - NONE [facility] Jul 25, 2024 09:00 AM [place]UL[place] [facility] [place] [facility] Jul 25, 2024 10:00 AM [place] [facility] [place] [facility] Jul 28, 2024 09:00 AM AMBULATORY - NONE [facility] Jul 29, 2024 08:00 AM AMBULATORY - REHAB MEDICIN [facility] Aug 02, 2024 08:30 AM AM[place]UL[place]ORY [place] [facility] [place] [facility] Aug 02, 2024 08:31 AM AM[facility]ULATORY - [facility] Aug 04, 2024 09:00 AM AMBULATORY - NONE [facility] Aug 04, 2024 02:00 PM AMBULATORY [place]INE [place] [facility] [place] [facility] Aug 08, 2024 09:00 AM AMBULATORY - REHAB MEDICIN [facility] August 11, 2024 09:30 AM AMBULATORY [place]INE [place] [facility] [place] [facility] August 15, 2024 09:00 AM AMBULATORY - REHAB MEDICIN [facility] August 18, 2024 09:00 AM AMBULATORY - NONE [facility] August 18, 2024 02:00 PM [place] [place] [facility] August 29, 2024 09:00 AM AM[facility]ULATORY - MEDICINE [facility] August 29, 2024 11:30 AM AM[place]UL[place] [facility] August 30, 2024 08:15 AM AMBULATORY - NONE [facility] Active, Pending, and Scheduled Orders This section includes a listing of several types of active, pending, and scheduled orders, including clinic medications orders, diagnostic test orders, procedure orders and consult orders; where the start date of the order is 45 days before the date of the Encounter or 45 days after the date of theEncounter. The data comes from all [place] treatment facilities. 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 Ordering Provider: GUDELIA MERIDA Report Released Date/Time: Jun 20, 2024 12:27 PM Reporting Lab: [facility] [address] [facility] [address] Performing Lab: [address] [address] OCCULT BLOOD (FIT)#1 OF 1 POSITIVE HH [...] 11:00 AM VA-TOBACCO NEVER U SED CIGARETTES [facility] Tobacco Use History This section includes a history of the smoking, or tobacco-related health factors, that were collected on or before the date of the Encounter. The data comes from the [place] facility where the Encounter took place. Date/Time Smoking Status/Tobacco Use Comment [place] May 10, 2024 11:00 AM VA-TOBACCO NEVER U SED OTHER TYPE [facility] Jun 06, 2023 12:22 PM VA-TOBACCO NEVER USED [facility] Encounter Notes: All associated encounter notes This section contains the clinical notes associated to the Encounter. Date/Time Encounter Note(s) Provider Source Jun 27, 2024 09:16 AM ACUPUNCTURE NOTE: LOCAL TITLE: ACUPUNCTURE TREATMENT STANDARD TITLE: ACUPUNCTURE NOTE DATE OF NOTE: JUN 27, 2024@09:16 ENTRY DATE: JUN 27, 2024@09:16:12 AUTHOR: GEORGINA SNELL EXP COSIGNER: URGENCY: STATUS: COMPLETED BLAYNE GOMEZ is a 69 WHITE MALE who presents with Chronic low back pain Active Problem Sleep apnea G47.30 08/10/2023 FURCOLO,GUDELIA Backache M54.59 08/10/2023 FURCOLO,GUDELIA Gastroesophageal reflux disease K21 08/10/2023 FURCOLO,GUDELIA Elevated blood-pressure reading wit 08/10/2023 FURCOLO,GUDELIA Cataract ([facility] [id number]) H26.9 06/23/2023 MISTY BURDICK Hearing loss H91.90 06/23/2023 MISTY BURDICK Chronic maxillary sinusitis J32.0 06/23/2023 MISTY BURDICK Mood disorder F39. 06/23/2023 MISTY BURDICK AR - Allergic rhinitis J30.9 06/23/2023 MISTY BURDICK Tinnitus H93.19 06/23/2023 MISTY BURDICK Date Jun CC / HPI - Eduardo presents with history of chronic low back pain. He states that he was in [employer] and often pulled hi G's. 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 Clinton states the pain is focused in the lumbar and SI joint. Clinton states that there is no radiation of pain into his legs or buttocks. has current pain level of 3/10 but pain can flare with specific movements. states that twisting and bending movements especially simultaneously can drop him to his knees . states specifically getting off the toilet and wiping himself can flare his pain. Most recent flare was 2 days ago. Clinton has had acupuncture prior to COVID and found moderate relief. Clinton states he also has intermittent neck issues but generally his upper back does not cause him complaint. Clinton has an additional complaint of tinnitus which he says makes him crazy. Clinton states that over the past year or so he has had increasing anxiety and blames it on the tendinitis. RESPONSE TO PREVIOUS TREATMENT. Clinton again had minimal to no relief with his last acupuncture visit. Eduardo has not seen the chiropractor yet. Appointment was recently scheduled and Eduardo is waiting to attend. OBJECTIVE General: . Patient in no apparent [...] cane ASSESSMENT / SUMMARY Affected Channel: UB, MIGUEL Medical Decision Making (MDM) * [ [...] ]Pyonex Needle: remove prior to bathing per lead web developer __ INFORMED CONSENT: Oral Consent obtained on Jun The patient was positioned comfortably. Oral consent [...] [X]LLE:UB 57 [X]RLE:UB 57 [ ]Other therapies: [X]Cupping:Low back 10 minutes [ ]Cold Laser [ ]Peizo Pen: [ ]External Qigong: [X]TDP Lamp:Sacrum 30 minutes [ ]Tui Na: [ ]Guasha: [ ]Nutrition [...] new consult is required /ronnie/ GEORGINA SNELL LA.C, DIPL.AC MUD ANALYSIS SUPERVISOR Signed: 06/27/2024 12:16 GEORGINA SNELL CNTRL [facility]
--- NOTE | 2024-08-30 08:17 | A.OFFVIS_ITS ---
Vital Signs 08/30/24 08:32 Height 5 ft 8 in Weight 204 lb BMI 31.0 BP 142/68 H Blood Pressure Location Lt brachial Position Sitting Pulse 73 Pulse Oximetry (%) 97 Oxygen Delivery Method Room Air Intake Visit Reasons: [place] Screening Intake Note: Patient new consult for pre colonoscopy/EGD . Patient cc: swallowing difficulty. Denies any other GI issues. Histopath Tech Required: No Accompanied by: Self / Same As Patient Allergies No Known Allergies Allergy (Verified 08/30/24 08:13) Medication List - Last Reconciled 08/30/24 by Veronika Arthur CNP albuterol sulfate 90 mcg/actuation 2 puffs inhalation QID amlodipine 10 mg PO DAILY ascorbic acid (vitamin C) 1 g PO DAILY bisacodyl 5 mg PO ONCE 1 day cholecalciferol (vitamin D3) 25 mcg PO DAILY famotidine 20 mg PO DAILY PRN fluticasone furoate 50 mcg/actuation inhalation omeprazole 20 mg PO DAILY peg 3350-electrolytes 236-22.74-6.74 -5.86 gram 240 mL PO Q10M simethicone (Gas Relief (simethicone)) 125 mg PO ONCE turmeric root extract 1,000 mg PO BID HPI HPI [place] Screening: Details: Patient is a 69-year-old male with PMH of asthma, hypertension, sleep apnea and GERD. Referred by [place] provider for pre colonoscopy screening. [place] PCP: Dr. Mera Grimes [facility] PCP: Aba Honeycutt. The patient presents for pre-colonoscopy screening after being referred by their [place] provider due to a positive FIT test result on July 24, 2024. The patient reports having noticed blood in the stool only upon wiping, which was bright red in color and observed over approximately a one-week duration. This bleeding has since resolved. Last colonoscopy approximately 6 years ago through [facility] with recommendation for repeat in 10 years. The patient has regular daily bowel movements. The patient denies having had any constipation, loose stools, abdominal pain, nausea, vomiting, unintentional wt loss, hemorrhoids or changes in appetite. The patient also reports a history of GERD, managed with omeprazole 20 mg daily for the past 20 years. Despite this, the patient experiences occasional heartburn, particularly after reducing the medication frequency, and supplements with Tums a few times a month. The patient describes regurgitation of food, especially with solids, and a sensation of food getting stuck, which is relieved by forced regurgitation. The patient has a history of esophageal dilation in 2019, which provided temporary relief. A barium swallow performed March 2024 confirmed acid reflux and a small hiatal hernia, otherwise normal. The patient has a history of sleep apnea and has attempted to use a CPAP machine but finds it uncomfortable and psychologically distressing, leading to poor compliance. The patient is exploring alternative treatments, including medications like GLP-1's. Shares amlodipine was increased to 10 mg daily approx two weeks ago. [place] of [place] 12 2024. 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 [facility] Medical History (Updated 08/30/24 @ 09:47 by Veronika Arthur CNP) Hypertension Asthma Sleep apnea Acid reflux Colon cancer screening Surgical History (Updated 08/30/24 @ 08:27 by Corinna Kothari) Hx of wisdom tooth extraction Hx of hernia repair Family History (Updated 08/30/24 @ 08:31 by Corinna Kothari) Father Myocardial infarction Mother Dementia Social History (Updated 08/30/24 @ 08:31 by Corinna Kothari) Household Members: Family Alcohol intake: current Alcohol intake frequency: a few times a week Patient Tobacco Use Status: Never used Tobacco Review of Systems Const Reports as per HPI ENT Reports as per HPI Card Reports as per HPI Resp Reports as per HPI GI Reports as per HPI Reports as per HPI Physical Exam Vital Signs: Last Vital Signs Pulse 73 08/30/24 08:32 BP 142/68 H 08/30/24 08:32 Pulse Ox 97 08/30/24 08:32 Oxygen Delivery Method Room Air 08/30/24 08:32 BMI result Body Mass Index 31.0 Const General: healthy appearing, no acute distress and well developed Nutritional Appearance: well nourished Orientation/consciousness: patient oriented x3 HEENT Head: Yes normal to inspection, Yes normocephalic and Yes atraumatic Face and sinus: Yes normal facial exam Eyes General: appearance normal, both eyes and all related structures Neck Neck: Yes normal visual inspection Resp Effort & Inspection: normal respiratory effort, able to speak in complete sentences, no tracheal deviation and symmetric chest movement Auscultation: clear to auscultation bilaterally Cardio Jugular venous distension: no JVD Rate: regular rate Rhythm: regular rhythm Heart sounds: S1 normal heart sound present, S2 normal heart sound present, no gallops and no murmurs GI Inspection: Yes normal to inspection and No distended Palpation (GI): Soft to palpation, not firm, nontender and No hepatosplenomegaly present Auscultation: normal bowel sounds Neuro General: patient oriented x3 Gait exam (Neuro): Normal gait present Psych Appearance: grossly normal Mental Status: mental status grossly normal Speech and movement: Normal speech and movement present Affect: normal affect Attitude: cooperative Thought process: Normal thought process present Thought content: Normal thought content present Insight: Good insight present (Psych) Judgement: Good judgement present (Psych) Assessment & Plan Assessment & Plan (1) Colon cancer screening: Code(s): Z12.11 - Encounter for screening for malignant neoplasm of colon Category: Medical Plan: Last colonoscopy performed by outside facility in 2019 with recommendations for repeat in 10 years. Educated on the importance of prompt screening given posit briseida FIT test findings 07/2024. Medications:Prescriptions for laxative tablets and Miralax sent to pharmacy; instructions for Gatorade purchase and clear liquid diet given. Patient educated on procedure preparation, including avoiding certain foods and ensuring clear liquid intake. Advised on necessity for ride post-procedure due to sedation. (2) Acid reflux: Code(s): K21.9 - Gastro-esophageal reflux disease without esophagitis Category: Medical Qualifiers: Esophagitis presence: esophagitis presence not specified Qualified Code(s): K21.9 - Gastro-esophageal reflux disease without esophagitis Plan: Chronic. Evidence of reflux on March 2024 barium swallow. We will obtain upper endoscopy at time of colonoscopy. We discussed increasing dose of omeprazole. However, Clinton would like to wait until after endoscopy to determine need for dose adjustment. he is agreeable to breakthrough management as below. Reviewed the risks and benefits of long-term PPI use, including common side effects. Discuss DEXA scan for osteoporosis screening. He has not keen on testing at this time. Encouraged to discuss with PCP if desires changes. Medications: - Continue Omeprazole 20 mg daily. - Famotidine PRN for symptoms relief. Education on GERD prevention : -Advised against heavy meals; encouraged small, frequent meals instead of large ones. - Instructed to remain upright for 2?3 hours after eating. - Advised to avoid late-night meals, spicy foods, caffeine, alcohol, known dietary triggers, and tight-fitting clothing. - Emphasis placed on gradual implementation of lifestyle changes to improve adherence and symptom control. Plan Educated on potential gastrointestinal side effects with GLP-1's. Follow-up after endoscopy are sooner as needed. Time: I spent a total of 45 minutes on the date of encounter which includes: Preparing to see the patient (reviewed previous documentation, test results and medical history) Performing a medically appropriate exam and/or evaluation Ordering medications, tests, and procedures Documenting clinical information in the health record Medications: New famotidine Take one tablet as needed for acid reflux 20 mg PO DAILY PRN 90 tabs 1RF GERD simethicone (Gas Relief (simethicone)) per colonoscopy prep instructions 125 mg PO ONCE 4 caps 0RF abdominal distention famotidine Take one tablet as needed for acid reflux 20 mg PO DAILY PRN 90 tabs 1RF GERD bisacodyl Take four tablets once for 1 day per colonoscopy instructions 5 mg PO ONCE 1 day 4 tabs 0RF peg 3350-electrolytes 236-22.74-6.74 -5.86 gram until fecal effluent is clear 240 mL PO Q10M 4,000 mL 0RF Coding Level of Care Code New Pt New Pt Level 5 (46439) Patient Type New Diagnoses Colon cancer screening Z12.11 Gastroesophageal reflux disease, unspecified whether esophagitis present K21.9 Esophagitis presence: esophagitis presence not specified
[2024-08-30 08:32] VITALS: BP 142/68; PULSE 73; O2SAT 97; BMI 31.0
== END ==
PROVIDERS: Referring Provider Nurse Practitioner Family; Visit Provider Nurse Practitioner Family
DX: Z12.11 Encounter for screening for malignant neoplasm of colon (principal); Z01.818 Encounter for other preprocedural examination; K21.9 Gastro-esophageal reflux disease without esophagitis
CPT/HCPCS: 99024

== ENCOUNTER 2025-01-25 07:10 | Day surgery (SDC) | payer OTHER, SELFPAY ==
--- OUTSIDE RECORDS SUMMARY | 2024-12-19 09:37 | XMS_ITS | Patient Health Record ---
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) Diagnosis 6 Dermatitis of right foot (L30.9) Referring Provider First Name Aba Referring Provider Last Name Yinka Referred Organization [facility] Referred Provider GENARO WALSH Referred Address [address] [place] [address] [address],[place], [place],[address], Referred Provider Specialty Podiatry Referral Priority Routine Medications Medication SIG (Take, Route, Frequency, Duration) Notes Start Date End Date Status Advair Diskus 250-50 MCG/ACT 1 puff Inhalation Twice a day Active Omeprazole 20 MG 1 capsule 30 minutes before morning meal Orally Once a day Active Clotrimazole-Betamethaso ne 1-0.05 % 1 application Externally Twice a day; Duration: 28 days 10/30/2022 Not-Taking Clotrimazole-Betamethaso ne 1-0.05 % 1 application Externally Twice a day; Duration: 90 days 01/29/2024 Active ProAir HFA Not-Takin g Sildenafil Citrate 100 MG 1 tablet as needed Orally Once a day Not-Taking Problems Problem Type SNOMED Code ICD Code Onset Dates Problem Status W/U Status Risk Notes Problem Hallux valgus of right foot (0214049430) Hallux valgus of right foot (M20.11) Active confirmed Problem Hallux valgus of left foot (9259897937) Hallux valgus of left foot (M20.12) Active confirmed Problem Left metatarsus adductus (disorder) (51616165759011942 ) 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 Problem Right metatarsus adductus (disorder) (48582559735858719 ) 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 Problem Localized, primary osteoarthritis of the ankle and/or foot (248758567) 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) Active confirmed Problem Localized, primary osteoarthritis of the ankle and/or foot () 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) Active confirmed Problem Localized, primary osteoarthritis of the ankle and/or foot (565788222) 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) Active confirmed Problem Localized, primary osteoarthritis of the ankle and/or foot (378125933) 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) Active confirmed Vital Signs Height 5ft 8in in 09/07/2024 Weight 204 lbs 09/07/2024 BMI 31.01 kg/m2 09/07/2024 Procedures Procedure Date Ordered Date Performed Result Body Sit e DRAIN/INJECT, SMALL JOINT/BURSA 01/28/2024 N/A DRAIN/INJECT, SMALL JOINT/BURSA 04/18/2024 N/A DRAIN/INJECT, SMALL JOINT/BURSA 09/07/2024 N/A Encounters Encounter Location Date Provider Diagnosis [facility] [address] [address] 01/28/2024 GENARO JILLIAN Arthritis of right midfoot M19.071 ; Arthritis of left midfoot M19.072 ; Pain in right foot M79.671 ; Pain in left foot M79.672 and Pruritic dermatitis L30.8 [facility] [address] [address] 04/18/2024 GENARO JILLIAN Arthritis of right midfoot M19.071 ; Arthritis of left midfoot M19.072 ; Pain in right foot M79.671 and Pain in left foot M79.672 [facility] [address] [address] 09/07/2024 GENARO WALSH Arthritis of right midfoot M19.071 ; Arthritis of left midfoot M19.072 ; Pain in right foot M79.671 and Pain in left foot M79.672 [facility] [address] [address] 08/30/2024 GENARO WALSH Assessments Encounter Date Diagnosis (ICD Code) Assessment [...] to call with any questions or concerns. 09/07/2024 Arthritis of right midfoot (ICD-10 - M19.071) [...] to call with any questions or concerns. 09/07/2024 Arthritis of left midfoot (ICD-10 - M19.072) 04/18/2024 Arthritis of left midfoot (ICD-10 - M19.072) 01/28/2024 Arthritis of left midfoot (ICD-10 - M19.072) 01/28/2024 Pain in right foot (ICD-10 - M79.671) 09/07/2024 Pain in right foot (ICD-10 - M79.671) 04/18/2024 Pain in right foot (ICD-10 - M79.671) 04/18/2024 Pain in left foot (ICD-10 - M79.672) 09/07/2024 Pain in left foot (ICD-10 - M79.672) 01/28/2024 Pain in left foot (ICD-10 - M79.672) 01/28/2024 Pruritic dermatitis (ICD-10 - L30.8) Plan Of Treatment Pending Test Test Name Order Date DRAIN/INJECT, SMALL JOINT/BURSA 09/04/19 23 DRAIN/INJECT, SMALL JOINT/BURSA 10/31/19 23 DRAIN/INJECT, SMALL JOINT/BURSA 06/02/19 24 DRAIN/INJECT, SMALL JOINT/BURSA 01/28/20 24 DRAIN/INJECT, SMALL JOINT/BURSA 04/18/19 25 DRAIN/INJECT, SMALL JOINT/BURSA 09/08/19 25 Insurance Providers Payer Name Payer Address Payer Phone Subscriber Number Group Number Insured Name Patient Relationship to Insured Coverage Start Date Coverage End Date [facility] [address] [place] [phone] [id number] Clinton Kuo Self - patient is the insured Medications Administered Medication Instructions Date of Administration Dosage Notes Dexamethasone 09/03/2022 8 mg Dexamethasone 10/30/2022 4 mg dexAMETHasone Sod Phosphate PF 06/02/2023 8 mg dexAMETHasone Sod Phosphate PF 01/28/2024 4 mg dexAMETHasone Sod Phosphate PF 04/18/2024 4 mg dexAMETHasone Sod Phosphate PF 09/07/2024 4 mg Kenalog 10/30/2022 10 mg Kenalog 01/28/2024 10 mg Kenalog 04/18/2024 10 mg Kenalog 09/07/2024 10 mg Medical (General) History Medical History [...]
[2025-01-20 10:58] VITALS: BMI 31.0
--- NOTE | 2025-01-20 11:30 | HO.ANESPROP2 ---
Documented by User: Nita Muller NP 01/20/25 11:33 HPI - Anesthesia Eval Consult details Narrative: 69 yr old male for Upper Endoscopy and Colonoscopy Asthma: on ICS/LABA GERD Sleep apnea PMFSH Active Problems Active Problems: All Active Problems Acid reflux (Acute) Colon cancer screening (Acute) Past Medical History Medical History Hypertension Asthma Sleep apnea Acid reflux Colon cancer screening Family History Family History Father Myocardial infarction Mother Dementia Surgical History Surgical History Hx of wisdom tooth extraction Hx of hernia repair Social History Social History Household Members: Family Alcohol intake: current Alcohol intake frequency: a few times a week Patient Tobacco Use Status: Never used Tobacco Use of substances other than those prescribed or required for medical reasons: No Advance Directives: No Advance Directives Information Provided: Yes Meds Allergies Allergy/AdvReac Type Severity Reaction Status Date / Time No Known Allergies Allergy Verified 08/30/24 08:13 Home Medications ?Medication ?Instructions ?Recorded ?Confirmed ?Last Taken ?Type albuterol sulfate 90 mcg/actuation 2 puff inhalation QID 08/30/24 01/20/25 Unknown History aerosol inhaler amlodipine 5 mg tablet 10 mg PO DAILY 08/30/24 01/20/25 Unknown History ascorbic acid (vitamin C) 1,000 mg 1 g PO DAILY 08/30/24 01/20/25 Unknown History capsule cholecalciferol (vitamin D3) 25 25 mcg PO DAILY 08/30/24 01/20/25 Unknown History mcg (1,000 unit) capsule fluticasone furoate 50 inhalation 08/30/24 08/30/24 Unknown History mcg/actuation blister powder for inhalation omeprazole 20 mg capsule,delayed 20 mg PO DAILY 08/30/24 01/20/25 Unknown History release turmeric root extract 500 mg tablet 1,000 mg PO BID 08/30/24 01/20/25 Unknown History Exam Height,Weight and Vital Signs: Height 5 ft 8 in Weight 92.533 kg Documented by User: Nakia Lake MD 01/25/25 08:08 [facility] Past Medical History Medical History Hypertension Asthma Sleep apnea Acid reflux Colon cancer screening Family History Family History Father Myocardial infarction Mother Dementia Family history of problems with anesthesia: No Surgical History Surgical History Hx of wisdom tooth extraction Hx of hernia repair History of Problems with Anesthesia: No Social History Social History Household Members: Family Alcohol intake: current Alcohol intake frequency: a few times a week Patient Tobacco Use Status: Never used Tobacco Use of substances other than those prescribed or required for medical reasons: No Advance Directives: No Advance Directives Information Provided: Yes Meds Allergies Allergy/AdvReac Type Severity Reaction Status Date / Time No Known Allergies Allergy Verified 08/30/24 08:13 Home Medications ?Medication ?Instructions ?Recorded ?Confirmed ?Last Taken ?Type albuterol sulfate 90 mcg/actuation 2 puff inhalation QID 08/30/24 01/20/25 Unknown History aerosol inhaler amlodipine 5 mg tablet 10 mg PO DAILY 08/30/24 01/20/25 Unknown History ascorbic acid (vitamin C) 1,000 mg 1 g PO DAILY 08/30/24 01/20/25 Unknown History capsule cholecalciferol (vitamin D3) 25 25 mcg PO DAILY 08/30/24 01/20/25 Unknown History mcg (1,000 unit) capsule fluticasone furoate 50 inhalation 08/30/24 08/30/24 Unknown History mcg/actuation blister powder for inhalation omeprazole 20 mg capsule,delayed 20 mg PO DAILY 08/30/24 01/20/25 Unknown History release turmeric root extract 500 mg tablet 1,000 mg PO BID 08/30/24 01/20/25 Unknown History Exam Airway Mallampati Class: II TM Dist: >3cm Neck ROM: Full Heart: rrr Lungs: cta Assessment and Plan Assessment Anesthesia Assessment: Anesthesia Plan Discussed and Chart Reviewed Final Anesthetic Review Family History of Problems with Anesthesia: No History of Problems with Anesthesia: No NPO: Yes ASA Class: II Final Preanesthetic Review: No Changes in Pt Med Stat, Meds/Allgs Chart Reviewed, Consent Obtained/Reviewed and Anes Risks/Benef Reviewed Patient Risk: Intermediate Procedure Risk: Low Anesthetic Plan Anesthetic Plan: MAC: Disposition: Standard PACU
[2025-01-25 07:44] VITALS: BMI 27.5
[2025-01-25 07:51] VITALS: BP 136/86; PULSE 65; RESP 16; TEMP 36.9; O2SAT 96
[2025-01-25] MEDS: Lactated Ringers 1,000 ML 100 ML IVCONT (07:56)
--- NOTE | 2025-01-25 08:38 | MHC.SHP ---
Pre-Procedural Eval Section A - 24 Hr Update-Section A only Date of Service: 01/25/25 Section B - Complete if H&P > 30 days Chief Complaint: screening,gerd, Relevant Family History (Specify if Yes): No Relevant Social History: None Present Medications: see Short Stay Collaborative assessment Medical History: Significant History (Hypertension Asthma Sleep apnea Acid reflux Colon cancer screening) History of Previous Operations: Relevant previous surgery/procedure and date(s) (Hx of wisdom tooth extraction Hx of hernia repair) Allergies: Allergies Allergy/AdvReac Type Severity Reaction Status Date / Time No Known Allergies Allergy Verified 08/30/24 08:13 Review of Systems Sugical H&P ROS: Negative: Constitution, Cardiovascular, Respiratory, Neurological, Psychiatric, Hem-Onc, Allergic/Immunologic, Gastrointestinal, Genitourinary, Musculoskeletal, Integumentary, Endocrine and Eyes/Ears/Nose/Throat Exam Surgical H&P Exam: Normal: HEENT, Normal: Heart, Normal: Lungs, Normal: Extremities, Normal: Abdomen, Normal: Skin and Normal: Neurological Plan Diagnosis/Plan: Unchanged I have reviewed the history and physical and performed a pertinent physical examination on my patient. No changes have occurred unless specified. Time Spent With Patient Time: Total time managing care of this patient today ____ minutes.
--- NOTE | 2025-01-25 09:22 | P.OPN-COLO_ITS ---
Colonoscopy Operative Note Operative Note Date of Service: 01/25/25 Narrative: Operative Information Procedure Description: EGD, Colonoscopy Indication: GERD, rectal bleeding - pos cologuard Anesthesia: [] FLEXIBLE TRANSORAL UPPER GASTROINTESTINAL ENDOSCOPY AND COLONOSCOPY PROCEDURE NOTE UPPER ENDOSCOPY Consent: Indications for the procedure and potential complications of bleeding, perforation, reaction to medications and missed diagnosis were discussed with the patient and informed consent was obtained. Instrument: Olympus GIF H 190 J mid size upper endoscope Monitoring: Vital signs and clinical assessment, continuous EKG monitoring, Pulse oximetry, Carbon Dioxide monitoring and blood pressure monitoring were done throughout the procedure. Procedure: The patient was placed in the left lateral decubitis position and pre-procedure medications were administered and a bite block was placed. The endoscope was inserted into the mouth and advanced under direct vision to the third part of duodenum. A careful inspection was made as the upper endoscope was withdrawn including a retroflexed examination of the proximal stomach; Findings and interventions are described below. Findings: Larynx:normal Esophagus: GE junction at 40 cm, diaphragm hiatus at 42 cm, one erosive linear streak noted, LA grade B esophagitis - bx taken from distal esophagus Stomach: Patchy erythema with bile acid noted as well. Biopsies were obtained. Grade 2 flap valve on retroflexed examination of the cardia. Duodenum: Normal bulb and descending duodenum, Intervention: Biopsies as noted above, COLONOSCOPY Instrument: Olympus variable stiffness pediatric scope 190L Colonoscopy Monitoring: Vital signs and clinical assessment, continuous EKG monitoring, Pulse oximetry, Carbon Dioxide monitoring and blood pressure monitoring were done throughout the procedure. Colon withdrawal time was 23 minutes. Procedure: The patient was placed in the left lateral decubitis position and pre-procedure medications were administered. After a digital rectal examination of the ano-rectum, the video colonoscope was inserted into the rectum and advanced through the colon to the cecum/TI. The colonoscope was slowly withdrawn in a retrograde panoramic fashion and the colon mucosa was carefully examined including a retroflexed view of the rectum. Findings and interventions are described below. Procedure Difficulty:moderate Findings: Terminal Ileum-normal, bx taken Cecum:normal Ascending Colon: normal, bx taken Transverse Colon - mild patchy colitis, bx taken Descending Colon: patchy erythema, bx taken--8 mm sessile polyp removed with cold snare Sigmoid Colon: patchy erythema with few ulcerated lesions and granular mucosa noted, bx taken- moderate diverticulosis noted as well Rectum: Retroflexion with small internal hemorrhoids, grade I, bx taken, 4-5 mm sessile polyp removed with cold snare Anorectum - normal Colon preparation: [place] Bowel Preparation Scale Right colon; 2 Transverse colon: 2 Left colon; 2 (0 = Unprepared colon segment with mucosa not seen due to solid stool that cannot be cleared. 1 = Portion of mucosa of the colon segment seen, but other areas of the colon segment not well seen due to staining, residual stool and/or opaque liquid. 2 = Minor amount of residual staining, small fragments of stool and/or opaque liquid, but mucosa of colon segment seen well. 3 = Entire mucosa of colon segment seen well with no residual staining, small fragments of stool or opaque liquid) Impression and Post Procedure Diagnosis: Endoscopy Findings: erosive esophagitis hiatal hernia bile acid reflux Colonoscopy Findings: diverticulosis colon polyps x 2 internal hemorrhoids colitis Plan: Await Pathology results Repeat Colonoscopy in 5 years due to polyps or earlier if clinically indicated High fiber diet leaflet avoid straining at stool, epsom salts and sitz bath, anusol supps or cream GERd precautions check nsaid hx consider increasing PPI dose Above findings were reviewed with the patient and relevant handouts were provided if indicated.
[2025-01-25 09:27] VITALS: BP 115/70; PULSE 55; RESP 16; TEMP 36.3; O2SAT 95
[2025-01-25 09:42] VITALS: BP 126/75; PULSE 52; RESP 18; TEMP 36.1; O2SAT 97
[2025-02-01 00:13] LABS: Lactoferrin, Fecal, Quant. <6.25 mcg/mL (<7.25)
== END 2025-01-25 10:04 | disposition home or self-care (01) ==
PROVIDERS: PCP Internal Medicine; Visit Provider Internal Medicine Gastroenterology
PROC: (CPT 45380; principal; 2025-01-25 08:30)
DX: Z12.11 Encounter for screening for malignant neoplasm of colon (principal); R19.5 Other fecal abnormalities; K21.9 Gastro-esophageal reflux disease without esophagitis; K44.9 Diaphragmatic hernia without obstruction or gangrene; K52.9 Noninfective gastroenteritis and colitis, unspecified; K64.0 First degree hemorrhoids; K57.30 Diverticulosis of large intestine without perforation or abscess without bleeding; K63.5 Polyp of colon
CPT/HCPCS: 45380; 45385; 43239; 83631; 88305; 88313; 88342; J2704

== ENCOUNTER → 2025-01-25 07:10 | Outpatient (BNV) | payer OTHER, SELFPAY | PROVIDERS: PCP Internal Medicine; Visit Provider Internal Medicine Gastroenterology | DX: Z12.11 Encounter for screening for malignant neoplasm of colon (principal); R19.5 Other fecal abnormalities; K62.5 Hemorrhage of anus and rectum; K52.9 Noninfective gastroenteritis and colitis, unspecified; D12.4 Benign neoplasm of descending colon; D12.8 Benign neoplasm of rectum; K57.90 Diverticulosis of intestine, part unspecified, without perforation or abscess without bleeding; K64.0 First degree hemorrhoids; K21.00 Gastro-esophageal reflux disease with esophagitis, without bleeding; K31.89 Other diseases of stomach and duodenum | CPT/HCPCS: 43239; 45380; 45385 ==

== ENCOUNTER 2025-02-07 08:52 | Outpatient (AMB) | payer OTHER, SELFPAY ==
--- NOTE | 2025-02-07 08:57 | MHC.OFFVIS ---
Vital Signs 02/07/25 08:59 Height 5 ft 8 in Weight 180 lb BMI 27.4 BP 143/72 H Blood Pressure Location Lt brachial Position Sitting Pulse 60 Pulse Oximetry (%) 98 Oxygen Delivery Method Room Air Intake Visit Reasons: s/p double Cruz Intake Note: Patient follow up for acid reflux and EGD/Colonoscopy results. Patient denies any GI issues. Procurement Representative Required: No Accompanied by: Self / Same As Patient Allergies No Known Allergies Allergy (Verified 02/07/25 08:56) HPI HPI s/p double Cruz: Details: Patient is a 69-year-old male with PMH of hypertension, sleep apnea and GERD. [facility] FU after EGD + colonoscopy (01/25); review biopsy/path; ongoing GERD. Pt continues to experience GERD symptoms, with hx of intermittent compliance to omeprazole 20 mg QD; now taking med daily past week. No dysphagia or food impaction but notes food can feel stuck occasionally?worse with hernia. No diarrhea, hematochezia, or abdominal pain since colonoscopy. No sx of infection (fever, n/v, loose stools) post-procedure or following recent 28-day doxy for Lyme dz; denies C. diff sx. Admits to rare aspirin use prn, mostly acetaminophen for h/a; minimal alcohol (social only). No hospitalizations, urgent visits, or flares since last seen. Successfully managing communication among GI, PCP, [facility]; pt frustrated with health info pepe. [facility], [facility] Medical History (Updated 02/07/25 @ 10:08 by Veronika Arthur CNP) Preventative health care Diverticulosis Hypertension Asthma Sleep apnea Acid reflux Colon cancer screening Surgical History (Updated 02/07/25 @ 09:25 by Corinna Kothari) Hx of colonoscopy History of esophagogastroduodenoscopy (EGD) Hx of wisdom tooth extraction Hx of hernia repair Family History Father Myocardial infarction Mother Dementia Social History Household Members: Family Alcohol intake: current Alcohol intake frequency: a few times a week Patient Tobacco Use Status: Never used Tobacco Review of Systems Const Reports as per HPI ENT Reports as per HPI Card Reports as per HPI Resp Reports as per HPI GI Reports as per HPI Reports as per HPI Physical Exam Vital Signs: Last Vital Signs Pulse 60 02/07/25 08:59 BP 143/72 H 02/07/25 08:59 Pulse Ox 98 02/07/25 08:59 Oxygen Delivery Method Room Air 02/07/25 08:59 BMI result Body Mass Index 27.4 Const General: healthy appearing, no acute distress and well developed Nutritional Appearance: average body habitus Orientation/consciousness: patient oriented x3 HEENT Head: Yes normal to inspection, Yes normocephalic and Yes atraumatic Face and sinus: Yes normal facial exam Eyes General: appearance normal, both eyes and all related structures Neck Neck: Yes normal visual inspection Resp Effort & Inspection: normal respiratory effort, able to speak in complete sentences, no tracheal deviation and symmetric chest movement Cardio Jugular venous distension: no JVD GI Inspection: Yes normal to inspection, No distended and Yes obesity Palpation (GI): Soft to palpation, not firm, nontender and No hepatosplenomegaly present Auscultation: normal bowel sounds Neuro General: patient oriented x3 Gait exam (Neuro): Normal gait present Psych Appearance: grossly normal Mental Status: mental status grossly normal Speech and movement: Normal speech and movement present Affect: normal affect Attitude: cooperative Thought process: Normal thought process present Thought content: Normal thought content present Insight: Good insight present (Psych) Judgement: Good judgement present (Psych) Results Reviewed Results Reviewed: Laboratory Tests 01/25/25 09:10 Stool Lactoferrin <6.25 Assessment & Plan Assessment & Plan (1) Acid reflux: Comment: EGD 01/25/25 -Hiatal hernia, esophagitis, bile acid reflux, gastritis Code(s): K21.9 - Gastro-esophageal reflux disease without esophagitis Category: Medical Qualifiers: Esophagitis presence: esophagitis presence not specified Qualified Code(s): K21.9 - Gastro-esophageal reflux disease without esophagitis Plan: Stable, slight improvement w/ recent daily PPI. Ongoing sx requiring optimization. EGD confirms inflammatory findings + suboptimal med adherence; pt agrees to dose escalation. Additional Testing: None at this time; option for barium swallow (repeat) or esophageal motility study if sx escalate (food impaction, dysphagia). Medications: - Start omeprazole 40 mg PO QD (stop 20 mg). Use up 20 mg tabs by doubling if supply remaining; switch to 40 mg when available. - Rx famotidine PRN for breakthrough symptoms. Lifestyle Recommendations: - Strict PPI adherence (daily, AM, before food). - Avoid meal triggers (spicy, acidic, caffeine), small meals, upright after eating. - Avoid late meals, minimize ETOH, elevate HOB. - Provided education on PPI risks/benefits; discussed long-term data/controversy. Referrals / Coordination of Care: - Will request old barium swallow results from PCP for completeness. - To coordinate data exchange w/ [facility] and referring physician (release signed). Follow-Up Plan: - FU in 6 mo or earlier PRN; reassess symptom control, med tolerance, lab results, discuss any interval hospitalizations/bleeding. (2) Diverticulosis: Comment: 01/25/25 colonoscopy- focally active, colitis (transverse), 8 mm sessile HP polyp(Descending), moderate diverticulosis (sigmoid), Chronic, moderately active, colitis (sigmoid), 4-5 mm sessile HP (rectum) small internal hemorrhoids. Recommendation to repeat in five years ( 2029) Code(s): K57.90 - Diverticulosis of intestine, part unspecified, without perforation or abscess without bleeding Category: Medical Plan: Stable, no diarrhea/blood/pain; no infection or IBD features. Colitis likely NSAID/ASA-related; diverticulosis requires constipation prevention. Additional Testing: -negative Stool Lactoferrin as above - Review CBC/diff, lytes from [facility] to ensure no occult inflammation/infection?pt to upload results to portal. 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 Lifestyle Recommendations: - Balanced diet; increase dietary fiber (as tolerated); maintain hydration. - Regular exercise and weight management; avoid constipation. - Re-education materials re: diverticulosis/colitis provided previously. Referrals / Coordination of Care: - Coordination with [facility]CP/[facility] for shared management, document handoff (GI, path, colonoscopy reports to be sent). Follow-Up Plan: - No immediate intervention if asymptomatic. - Repeat colonoscopy in 5 yrs d/t hx of 2 polyps + colitis; plan concurrent EGD. - Advise to report any new GI sx (bleeding, pain, diarrhea). (3) Preventative health care: Code(s): Z00.00 - Encounter for general adult medical examination without abnormal findings Category: Medical Plan: Multisystem care (GI, PCP, [facility]); pt frustrated w/ lack of integrated records. Enhanced continuity of care, minimize duplication, close gaps. Additional Testing: None at this time. Medications: None. Lifestyle Recommendations: None specific. Referrals / Coordination of Care: - Consent/release processed for record exchange. - Team to send all GI/colonoscopy/path reports to [facility], [facility]CP. Follow-Up Plan: Continue to monitor shared communication; encourage pt to use portal for updates. Plan Follow-up 6 months or sooner as needed Time: I spent a total of 32 minutes on the date of encounter which includes: Preparing to see the patient (reviewed previous documentation, test results and medical history) Performing a medically appropriate exam and/or evaluation Ordering medications, tests, and procedures Documenting clinical information in the health record Medications: New omeprazole Take one tablet daily. Best taken 30 minutes before meal 40 mg PO DAILY 90 caps 1RF Refilled famotidine Take one tablet as needed for acid reflux 20 mg PO DAILY PRN 90 tabs 1RF GERD Coding Level of Care Code Established Pt Est Pt Level 3 (74441) Patient Type Established Diagnoses Gastroesophageal reflux disease, unspecified whether esophagitis present K21.9 Esophagitis presence: esophagitis presence not specified Diverticulosis K57.90 [facility] Z00.00
[2025-02-07 08:59] VITALS: BP 143/72; PULSE 60; O2SAT 98; BMI 27.4
--- OUTSIDE RECORDS SUMMARY | 2025-02-07 09:43 | XMS_ITS | Patient Health Record ---
Author Organization [facility] Address [address] [place] [id number] Care Team Providers Care Centrifugal Station Operator Name Role Phone Aba Honeycutt Primary Care Provider GENARO Barnard Unavailable [phone] Allergies No Known Allergies Reason For Referral [...] Referring Provider Last Name Yinka Referred Organization [facility] Referred Provider GENARO WALSH Referred Address [address] [place] [address] [address] ,[place], [place],[address], Referred Provider Specialty Podiatry Referral Priority Routine Medications Medication SIG (Take, Route, Frequency, Duration) Notes Start Date End Date Status Clotrimazole-Betamethaso ne 1-0.05 % 1 application Externally Twice a day; Duration: 90 days 01/29/2024 Active Clotrimazole-Betamethaso ne 1-0.05 % 1 application Externally Twice a day; Duration: 28 days 10/30/2022 Not-Taking Omeprazole 20 MG 1 capsule 30 minutes before morning meal Orally Once a day Active Advair Diskus 250-50 MCG/ACT 1 puff Inhalation Twice a day Active ProAir HFA Not-Takin g Clotrimazole-Betamethaso ne 1-0.05 % 1 application Externally Twice a day; Duration: 90 days 01/30/2025 Active Sildenafil Citrate 100 MG 1 tablet as needed Orally Once a day Not-Taking Clotrimazole-Betamethaso ne 1-0.05 % 1 application Externally Twice a day; Duration: 90 days 02/02/2025 Active Problems Problem Type SNOMED Code ICD Code Onset Dates Problem Status W/U Status Risk Notes Problem Hallux valgus of right foot (8134347505) Hallux valgus of right foot (M20.11) Active confirmed Problem Hallux valgus of left foot (8951928319) Hallux valgus of left foot (M20.12) Active confirmed Problem Left metatarsus adductus (disorder) (97144072631835299 ) 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 Problem Right metatarsus adductus (disorder) (46335389616599974 ) 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 Problem Localized, primary osteoarthritis of the ankle and/or foot (340351052) 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) Active confirmed Problem Localized, primary osteoarthritis of the ankle and/or foot (658037664) 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) Active confirmed Problem Localized, primary osteoarthritis of the ankle and/or foot (677531361) 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) Active confirmed Problem Localized, primary osteoarthritis of the ankle and/or foot (663591438) 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) Active confirmed Vital Signs Height 5ft 8in in 09/07/2024 Weight 204 lbs 09/07/2024 BMI 31.01 kg/m2 09/07/2024 Procedures Procedure Date Ordered Date Performed Result Body Sit e DRAIN/INJECT, SMALL JOINT/BURSA 04/18/2024 N/A DRAIN/INJECT, SMALL JOINT/BURSA 09/07/2024 N/A DRAIN/INJECT, SMALL JOINT/BURSA 01/30/2025 N/A Encounters Encounter Location Date Provider Diagnosis [facility] [address] [facility] [address] [place] [address] 04/18/2024 GENARO WALSH Arthritis of right midfoot M19.071 ; Arthritis of left midfoot M19.072 ; Pain in right foot M79.671 and Pain in left foot M79.672 [facility] [address] 09/07/2024 GENARO WALSH Arthritis of right midfoot M19.071 ; Arthritis of left midfoot M19.072 ; Pain in right foot M79.671 and Pain in left foot M79.672 [facility] [address] 01/30/2025 GENAROHetal WALSH Arthritis of right midfoot M19.071 ; Arthritis of left midfoot M19.072 ; Pain in right foot M79.671 ; Pain in left foot M79.672 and Pruritic dermatitis L30.8 [facility] [address] 08/30/2024 GENAROANA WALSH [facility] [address] 02/02/2025 GENARO WALSH Assessments Encounter Date Diagnosis (ICD [...] to call with any questions or concerns. 01/30/2025 Arthritis of right midfoot (ICD-10 - M19.071) [...] to call with any questions or concerns. 01/30/2025 Arthritis of left midfoot (ICD-10 - M19.072) 09/07/2024 Arthritis of left midfoot (ICD-10 - M19.072) 04/18/2024 Arthritis of left midfoot (ICD-10 - M19.072) 09/07/2024 Pain in right foot (ICD-10 - M79.671) 01/30/2025 Pain in right foot (ICD-10 - M79.671) 04/18/2024 Pain in right foot (ICD-10 - M79.671) 04/18/2024 Pain in left foot (ICD-10 - M79.672) 01/30/2025 Pain in left foot (ICD-10 - M79.672) 09/07/2024 Pain in left foot (ICD-10 - M79.672) 01/30/2025 Pruritic dermatitis (ICD-10 - L30.8) He continues to have a pruritis dermatitis to the dorsal aspect of the left foot. This has improved some with the lotrisone treatment, but continues to come back. We discussed a skin biopsy may be helpful in aiding better treatment. Would recommend doing this in the future if the rash continues. He did want refills on the topical today. I will send this over for him. He will let me know in the future if he wants to do the skin biopsy. Plan Of Treatment Pending Test Test Name Order Date DRAIN/INJECT, SMALL JOINT/BURSA 09/04/19 23 DRAIN/INJECT, SMALL JOINT/BURSA 10/31/19 23 DRAIN/INJECT, SMALL JOINT/BURSA 06/02/19 24 DRAIN/INJECT, SMALL JOINT/BURSA 01/28/20 24 DRAIN/INJECT, SMALL JOINT/BURSA 04/18/19 25 DRAIN/INJECT, SMALL JOINT/BURSA 09/08/19 25 DRAIN/INJECT, SMALL JOINT/BURSA 01/31/20 25 Insurance Providers Payer Name Payer Address Payer Phone Subscriber Number Group Number Insured Name Patient Relationship to Insured Coverage Start Date Coverage End Date [facility] [address] [place] [phone] [id number] Clinton Kuo Self - patient is the insured Medications Administered Medication Instructions Date of Administration Dosage Notes Dexamethasone 09/03/2022 8 mg Dexamethasone 10/30/2022 4 mg dexAMETHasone Sod Phosphate PF 06/02/2023 8 mg dexAMETHasone Sod Phosphate PF 01/28/2024 4 mg dexAMETHasone Sod Phosphate PF 04/18/2024 4 mg dexAMETHasone Sod Phosphate PF 09/07/2024 4 mg dexAMETHasone Sod Phosphate PF 01/30/2025 4 mg Kenalog 10/30/2022 10 mg Kenalog 01/28/2024 10 mg Kenalog 04/18/2024 10 mg Kenalog 09/07/2024 10 mg Kenalog 01/30/2025 10 mg Medical (General) History Medical History [...]
== END 2025-02-07 09:50 | disposition home or self-care (01) ==
LOC: HO.HGI 08:53
PROVIDERS: PCP Internal Medicine; Referring Provider Nurse Practitioner Family; Visit Provider Nurse Practitioner Family
DX: K21.9 Gastro-esophageal reflux disease without esophagitis (principal); K57.90 Diverticulosis of intestine, part unspecified, without perforation or abscess without bleeding; Z00.00 Encounter for general adult medical examination without abnormal findings
CPT/HCPCS: 99213

== ENCOUNTER → 2025-02-07 08:52 | Outpatient (BNVA) | payer OTHER, SELFPAY | PROVIDERS: PCP Internal Medicine; Visit Provider Nurse Practitioner Family | DX: K21.9 Gastro-esophageal reflux disease without esophagitis (principal); K57.90 Diverticulosis of intestine, part unspecified, without perforation or abscess without bleeding; Z98.890 Other specified postprocedural states; Z00.00 Encounter for general adult medical examination without abnormal findings | CPT/HCPCS: 99212 ==